=== PATIENT | male | born 1975 | race Caucasian/White ===

== ENCOUNTER 2017-12-16 04:02 | Emergency (ER) | payer SELFPAY ==
[2017-12-16 04:03] VITALS: BP 170/99; PULSE 85; RESP 18; TEMP 37; O2SAT 97; BMI 36.5
--- NOTE | 2017-12-16 05:41 | ED.DCSUM_ITS ---
- ER Visit Summary Date of Service: 12/16/17 Chief Complaint: lump around anus History of Present Illness: The patient is a 42 M who presents with chief complaint of I have a lump around my butt hole. Is concern for possible hemorrhoid although he states this feels different. He noticed a painful lump. He denies any rectal bleeding. No history of inflammatory bowel disease. No history of prior similar symptoms. He denies fevers nausea or vomiting. Physical Examination: Afebrile vitals are unremarkable Moist mucous membranes Heart regular rate and rhythm Lungs are clear Rectal exam is nontender he does have a left-sided perianal abscess Test Results: None indicated Emergency Department Course and Treatment: Patient anesthetized with 1% local lidocaine. An incision was made with a #11 blade with moderate amount of purulent drainage. Patient instructed on sits baths. He was referred to general surgery for outpatient follow-up. He is instructed on specific signs and symptoms to monitor for and conditions under which return to the emergency department. He was prescribed Augmentin and discharged home. Treatment Plan: [] Disposition: Discharge Impression: Perianal abscess This note was generated with [employer] dictation software. It may contain incorrect words, spelling, and punctuation that were not noted in review of the chart prior to signing ED Disposition - Plan for ED Patient: Chief Complaint: Other, Pain/Inj Referrals: Messi Valladares MD [Primary Care Provider] -
--- NOTE | 2017-12-16 05:41 | ED.DEP ---
ED Disposition - Plan for ED Patient: Chief Complaint: Other, Pain/Inj Instructions: ED Abscess IandD Prescriptions: Amox/Clavulanate Tablet [Augmentin Tablet] 875 mg PO Q12H #20 tab Referrals: Messi Valladares MD [Primary Care Provider] - Sandor Cedeño MD [STAFF PHYSICIAN] -
[2017-12-16 05:50] VITALS: RESP 18
== END 2017-12-16 05:54 | disposition home or self-care (01) ==
PROVIDERS: Emergency Provider Emergency Medicine; Family Provider Family Medicine; PCP Family Medicine
DX: K61.0 Anal abscess (principal); Z72.0 Tobacco use
CPT/HCPCS: 46050; 10060; 99282

== ENCOUNTER → 2018-10-29 08:15 | Outpatient (CLI) | payer OTHER, SELFPAY ==
[2018-10-29 10:55] LABS: Absolute Lymphocyte Count 3.01 X10^3/ul (0.83-4.51); Basophil# 0.03 X10^3/uL; Basophil% 0.4 % (0-1); Color, Urine Yellow (Yellow); Eosinophil# 0.24 X10^3/uL; Eosinophils% 3.4 % (0-5); Glucose, Dipstick Normal (Normal); Hematocrit 43.9 % (40-54); Hemoglobin 14.8 g/dl (13.0-16.5); Ketone-Dipstick Negative (Negative); Leukocyte Esterase-Dipstick Negative /ul (Negative); Lymphocyte # 3.01 X10^3/ul (4.0); Lymphocyte % 42.9 % (19-41); Mean Corp Hgb Conc 33.7 g/gl (32-36); Mean Corpuscular Hgb 29.9 pg (27.0-32.0); Mean Corpuscular Volume 88.7 fL (80-94); Mean Platelet Vol. 9.8 fl (6.2-12.0); Neutrophil # 3.02 X10^3/uL (2.7-7.7); Neutrophil % 43.2 % (47-70); Nitrite-Dipstick Negative (Negative); Occult Blood-Urine Negative /ul (Negative); Platelet Count 307 K/mm3 (150-450); Protein-Dipstick 30 mg/dl (Negative); RBC Distribution Width CV 12.6 % (11.6-14.6); RBC Distribution Width SD 39.7 fl (35.1-43.9); Red Blood Count 4.95 M/mm3 (4.6-6.2); Urine Bilirubin Dipstick Negative (Negative); Urine Clarity Clear (Clear); Urine Urobilinogen 4 mg/dl (Normal)
[2018-10-29 11:00] LABS: POSITIVE COUNT NO; POSITIVE DIFFERENTIAL NO; POSITIVE MORPHOLOGY NO
[2018-10-29 11:23] LABS: ALB/GLOB Ratio 0.8 RATIO (0.9-2.4); AST(SGOT) 35 U/L (15-37); Alanine Aminotransfer ALT/SGPT 75 U/L (16-61); Albumin, Serum 3.6 g/dL (3.2-5.0); Alkaline Phosphatase 91 U/L (45-117); Anion Gap 9 (5-15); BUN 10 mg/dL (7-18); BUN/Creat Ratio 16.9 RATIO (10-20); Calcium,Total 8.6 mg/dL (8.5-10.1); Chloride 100 mmol/L (98-107); Cholesterol 124 mg/dL (200); Creatinine, Serum 0.59 mg/dL (0.70-1.30); EST Glomerular Filtration Rate 156 mL/min (>60); Est Glom Filt Rate - Afr Amer 189 mL/min (>60); Globulin 4.8 g/dL (2.2-4.2); Glucose 178 mg/dL (74-106); High Density Lipoprotein 34 mg/dL; Protein, Total 8.4 g/dL (6.4-8.2); Sodium Level 135 mmol/L (136-145); Triglycerides 95 mg/dL; Very Low Density Lipoprotein 19 mg/dL (5-40)
[2018-10-29 14:11] LABS: Chlamydia Trachomatis by PCR Negative (Negative); Neisserai gonorrhoeae by PCR Negative (Negative); Probe Check PASS; Sample Adequacy Control PASS; Specimen Processing Control PASS
[2018-10-30 04:56] LABS: Rapid Plasmin Reagin (RPR) NONREACTIVE (NONREACTIVE)
[2018-10-30 17:38] LABS: Absolute CD4 Helper 640 /uL (359-1519); Basophils (Absolute) 0 x10E3/uL (0.0-0.2); Eosinophils 3 % (Not Estab.); Eosinophils (Absolute) 0.2 x10E3/uL (0.0-0.4); Hematocrit 42.3 % (37.5-51.0); Hemoglobin 13.8 g/dL (13.0-17.7); Immature Granulocytes 0 % (Not Estab.); Immature Granulocytes Absolute 0 x10E3/uL (0.0-0.1); Lymphs 43 % (Not Estab.); Lymphs (Absolute) 2.7 x10E3/uL (0.7-3.1); MCH 29.2 pg (26.6-33.0); MCHC 32.6 g/dL (31.5-35.7); MCV 89 fL (79-97); Monocytes 12 % (Not Estab.); Monocytes (Absolute) 0.8 x10E3/uL (0.1-0.9); Neutrophils 42 % (Not Estab.); Neutrophils (Absolute) 2.8 x10E3/uL (1.4-7.0); Percent % CD4 Pos. Lymph. 23.7 % (30.8-58.5); Platelets 345 x10E3/uL (150-379); RBC Count 4.73 x10E6/uL (4.14-5.80); WBC Count 6.5 x10E3/uL (3.4-10.8)
[2018-10-31 15:37] LABS: Hep B Surface Antibodies Non Reactive (.)
[2018-11-01 11:55] LABS: HIV-1 RNA by PCR, Quant. 60900 copies/mL (.); LOG10 HIV-1 RNA 4.785 (.)
== END ==
PROVIDERS: Family Provider Family Medicine; PCP Family Medicine; Referring Provider Internal Medicine Infectious Disease; Visit Provider Internal Medicine Infectious Disease
DX: B20 Human immunodeficiency virus [HIV] disease (principal); E78.5 Hyperlipidemia, unspecified
CPT/HCPCS: 36415; 80053; 80061; 81002; 85025; 86361; 86592; 86706; 87491; 87536; 87591

== ENCOUNTER → 2018-12-24 | Outpatient (CLI) | payer OTHER, SELFPAY ==
[2018-12-24 08:53] LABS: Hematocrit 41.3 % (40-54); Hemoglobin 14.3 g/dl (13.0-16.5); Mean Corp Hgb Conc 34.6 g/gl (32-36); Mean Corpuscular Hgb 30.4 pg (27.0-32.0); Mean Corpuscular Volume 87.9 fL (80-94); Mean Platelet Vol. 9.3 fl (6.2-12.0); Platelet Count 304 K/mm3 (150-450); RBC Distribution Width CV 12.6 % (11.6-14.6); RBC Distribution Width SD 40.4 fl (35.1-43.9); White Blood Count 6.8 K/mm3 (4.4-11.0)
[2018-12-24 08:58] LABS: Scan Indicated on CBC? Y/N NO
[2018-12-24 09:26] LABS: AST(SGOT) 31 U/L (15-37); Alanine Aminotransfer ALT/SGPT 56 U/L (16-61); Albumin, Serum 3.2 g/dL (3.2-5.0); Alkaline Phosphatase 86 U/L (45-117); Anion Gap 5 (5-15); BUN 10 mg/dL (7-18); BUN/Creat Ratio 16.8 RATIO (10-20); Calcium,Total 8.2 mg/dL (8.5-10.1); Chloride 103 mmol/L (98-107); EST Glomerular Filtration Rate 155 mL/min (>60); Est Glom Filt Rate - Afr Amer 188 mL/min (>60); Globulin 4.6 g/dL (2.2-4.2); Glucose 198 mg/dL (74-106); Potassium 4.1 mmol/L (3.5-5.1); Protein, Total 7.8 g/dL (6.4-8.2); Sodium Level 135 mmol/L (136-145)
[2018-12-25 16:08] LABS: Absolute CD4 Helper 711 /uL (359-1519); Basophils (Absolute) 0 x10E3/uL (0.0-0.2); Eosinophils 3 % (Not Estab.); Eosinophils (Absolute) 0.2 x10E3/uL (0.0-0.4); HEPATITIS B SURFACE AG Negative (Negative); Hematocrit 43.1 % (37.5-51.0); Hemoglobin 14.2 g/dL (13.0-17.7); Immature Granulocytes 0 % (Not Estab.); Immature Granulocytes Absolute 0 x10E3/uL (0.0-0.1); Lymphs 45 % (Not Estab.); Lymphs (Absolute) 2.8 x10E3/uL (0.7-3.1); MCH 29.6 pg (26.6-33.0); MCHC 32.9 g/dL (31.5-35.7); MCV 90 fL (79-97); Monocytes 12 % (Not Estab.); Monocytes (Absolute) 0.7 x10E3/uL (0.1-0.9); Neutrophils 40 % (Not Estab.); Neutrophils (Absolute) 2.5 x10E3/uL (1.4-7.0); Percent % CD4 Pos. Lymph. 25.4 % (30.8-58.5); Platelets 342 x10E3/uL (150-450); RBC Count 4.79 x10E6/uL (4.14-5.80); RDW 12.5 % (12.3-15.4); WBC Count 6.3 x10E3/uL (3.4-10.8)
[2018-12-27 13:04] LABS: Hepatitis B Core Ab Total Negative (Negative)
[2018-12-27 13:22] LABS: HIV-1 RNA by PCR, Quant. 60 copies/mL (.); LOG10 HIV-1 RNA 1.778 (.)
== END | disposition home or self-care (01) ==
PROVIDERS: Family Provider Family Medicine; PCP Family Medicine; Referring Provider Internal Medicine Infectious Disease; Visit Provider Internal Medicine Infectious Disease
DX: B20 Human immunodeficiency virus [HIV] disease (principal)
CPT/HCPCS: 36415; 80048; 80076; 85027; 86361; 86704; 87340; 87536

== ENCOUNTER → 2019-04-01 08:02 | Outpatient (CLI) | payer OTHER, SELFPAY ==
[2019-04-01 09:50] LABS: Hematocrit 42.8 % (40-54); Hemoglobin 14.1 g/dL (13.0-16.5); Mean Corp Hgb Conc 32.9 g/dL (32-36); Mean Corpuscular Hgb 29.8 pg (27.0-32.0); Mean Corpuscular Volume 90.5 fL (80-94); Mean Platelet Vol. 9.9 fl (6.2-12.0); Platelet Count 311 K/mm3 (150-450); RBC Distribution Width CV 12.2 % (11.6-14.6); RBC Distribution Width SD 40.3 fl (35.1-43.9); Red Blood Count 4.73 M/mm3 (4.6-6.2); White Blood Count 7.7 K/mm3 (4.4-11.0)
[2019-04-01 10:02] LABS: AST(SGOT) 26 U/L (15-37); Alanine Aminotransfer ALT/SGPT 53 U/L (16-61); Alkaline Phosphatase 104 U/L (45-117); Anion Gap 5 (5-15); BUN 11 mg/dL (7-18); BUN/Creat Ratio 17.4 RATIO (10-20); Bilirubin, Direct 0.22 mg/dL (0.00-0.30); Calcium,Total 8.4 mg/dL (8.5-10.1); Chloride 101 mmol/L (98-107); Creatinine, Serum 0.63 mg/dL (0.70-1.30); EST Glomerular Filtration Rate 145 mL/min (>60); Est Glom Filt Rate - Afr Amer 176 mL/min (>60); Globulin 4.8 g/dL (2.2-4.2); Glucose 255 mg/dL (74-106); Potassium 3.9 mmol/L (3.5-5.1); Protein, Total 7.8 g/dL (6.4-8.2); Sodium Level 133 mmol/L (136-145)
[2019-04-05 10:04] LABS: HIV-1 RNA by PCR, Quant. < 20 copies/mL (.)
[2019-04-06 20:07] LABS: Absolute CD4 Helper 856 /uL (359-1519); Basophils (Absolute) 0 x10E3/uL (0.0-0.2); Eosinophils 2 % (Not Estab.); Eosinophils (Absolute) 0.2 x10E3/uL (0.0-0.4); Hematocrit 42.5 % (37.5-51.0); Hemoglobin 14.6 g/dL (13.0-17.7); Immature Granulocytes 0 % (Not Estab.); Immature Granulocytes Absolute 0 x10E3/uL (0.0-0.1); Lymphs 38 % (Not Estab.); Lymphs (Absolute) 2.9 x10E3/uL (0.7-3.1); MCH 30.4 pg (26.6-33.0); MCHC 34.4 g/dL (31.5-35.7); MCV 89 fL (79-97); Monocytes 9 % (Not Estab.); Monocytes (Absolute) 0.7 x10E3/uL (0.1-0.9); Neutrophils 51 % (Not Estab.); Neutrophils (Absolute) 3.9 x10E3/uL (1.4-7.0); Percent % CD4 Pos. Lymph. 29.5 % (30.8-58.5); Platelets 334 x10E3/uL (150-450); QNTFERON TB Mitogen Value > 10.00 IU/mL (.); QNTFERON TB Nil Value 0.03 IU/mL (.); QNTFERON TB1+ Ag Value 0.04 IU/mL (.); QNTFERON TB2+ Ag Value 0.03 IU/mL (.); RDW 12.9 % (12.3-15.4); WBC Count 7.6 x10E3/uL (3.4-10.8)
[2019-04-07 12:20] LABS: QNTIFERON TB Positive Criteria Negative (Negative)
== END ==
PROVIDERS: Family Provider Family Medicine; PCP Family Medicine; Referring Provider Internal Medicine Infectious Disease; Visit Provider Internal Medicine Infectious Disease
DX: B20 Human immunodeficiency virus [HIV] disease (principal)
CPT/HCPCS: 36415; 80048; 80076; 85027; 86361; 86480; 87536

== ENCOUNTER → 2019-09-30 | Outpatient (CLI) | payer BC, SELFPAY ==
[2019-09-30 11:59] LABS: Hematocrit 41.7 % (40-54); Hemoglobin 13.6 g/dL (13.0-16.5); Mean Corp Hgb Conc 32.6 g/dL (32-36); Mean Corpuscular Hgb 29.6 pg (27.0-32.0); Mean Corpuscular Volume 90.7 fL (80-94); Mean Platelet Vol. 9.4 fl (6.2-12.0); Platelet Count 315 K/mm3 (150-450); RBC Distribution Width CV 12.4 % (11.6-14.6); RBC Distribution Width SD 40.9 fl (35.1-43.9)
[2019-09-30 12:23] LABS: AST(SGOT) 18 U/L (15-37); Alanine Aminotransfer ALT/SGPT 32 U/L (16-61); Albumin, Serum 3.2 g/dL (3.2-5.0); Alkaline Phosphatase 98 U/L (45-117); Anion Gap 3 (5-15); BUN 6 mg/dL (7-18); Bilirubin, Direct 0.17 mg/dL (0.00-0.30); Calcium,Total 8.4 mg/dL (8.5-10.1); Chloride 103 mmol/L (98-107); EST Glomerular Filtration Rate 153 mL/min (>60); Est Glom Filt Rate - Afr Amer 186 mL/min (>60); Globulin 4.7 g/dL (2.2-4.2); Glucose 149 mg/dL (74-106); Protein, Total 7.9 g/dL (6.4-8.2); Sodium Level 137 mmol/L (136-145)
[2019-10-01 14:08] LABS: Absolute CD4 Helper 1026 /uL (359-1519); Basophils (Absolute) 0 x10E3/uL (0.0-0.2); Eosinophils 2 % (Not Estab.); Eosinophils (Absolute) 0.1 x10E3/uL (0.0-0.4); Hematocrit 40.9 % (37.5-51.0); Hemoglobin 13.7 g/dL (13.0-17.7); Immature Granulocytes 0 % (Not Estab.); Lymphs 46 % (Not Estab.); Lymphs (Absolute) 3.1 x10E3/uL (0.7-3.1); MCH 30.4 pg (26.6-33.0); MCHC 33.5 g/dL (31.5-35.7); MCV 91 fL (79-97); Monocytes 7 % (Not Estab.); Monocytes (Absolute) 0.5 x10E3/uL (0.1-0.9); Neutrophils 45 % (Not Estab.); Neutrophils (Absolute) 3.1 x10E3/uL (1.4-7.0); Percent % CD4 Pos. Lymph. 33.1 % (30.8-58.5); Platelets 333 x10E3/uL (150-450); RBC Count 4.51 x10E6/uL (4.14-5.80); RDW 13.4 % (11.6-15.4); WBC Count 6.8 x10E3/uL (3.4-10.8)
[2019-10-01 16:51] LABS: Immature Granulocytes Absolute 0 x10E3/uL (0.0-0.1)
[2019-10-02 15:07] LABS: HIV-1 RNA by PCR, Quant. < 20 copies/mL (.)
== END | disposition home or self-care (01) ==
LOC: LAB 11:18
PROVIDERS: PCP Family Medicine; Referring Provider Internal Medicine Infectious Disease; Visit Provider Internal Medicine Infectious Disease
DX: B20 Human immunodeficiency virus [HIV] disease (principal)
CPT/HCPCS: 36415; 80048; 80076; 85027; 86361; 87536

== ENCOUNTER 2020-04-05 14:48 | Emergency (ER) | payer BC, SELFPAY ==
--- NOTE | 2020-04-05 13:37 | RAD_ITS ---
STUDY: X-RAY CHEST REASON FOR EXAM: Male, 45 years old. Chest pain. TECHNIQUE: Single AP portable view of the chest. COMPARISON: Chest, 12/27/2016. FINDINGS: The lungs are clear and expanded. There is no demonstrated pleural abnormality. Normal size heart. Normal mediastinum and karen. Normal visualized pulmonary arteries. Normal visualized aortic arch and descending thoracic aorta. Normal visualized thoracic spine. Normal visualized ribs, clavicles, and shoulders. There is no demonstrated abnormality of the visualized soft tissue structures of the upper abdomen. RAD/Chest 1 View (Portable) IMPRESSION: No acute cardiopulmonary disease or interval change Electronically Signed: Kip Wolf DO at 16:15 EDT Tel [phone], Service support ,
[2020-04-05 14:51] VITALS: BP 134/76; PULSE 88; RESP 17; TEMP 36.7; O2SAT 99; BMI 41.6
[2020-04-05 14:54] VITALS: BP 134/76; PULSE 89; RESP 15; O2SAT 97
--- NOTE | 2020-04-05 15:01 | EKG12_ITS ---
Test Reason : CP Blood Pressure : / mmHG Vent. Rate : 088 BPM Atrial Rate : 088 BPM P-R Int : 170 ms QRS Dur : 090 ms QT Int : 352 ms P-R-T Axes : 001 029 039 degrees QTc Int : 425 ms Normal sinus rhythm Normal ECG Confirmed by RANDY MOORE, JOSIAS ([id number]), photograph editor LIZZIE MILLS ([id number]) on 04/10/2020 1:25:10 PM Referred By: EFRAIN Confirmed By:JOSIAS PADILLA MD
[2020-04-05 15:30] LABS: Absolute Neutrophil Count 4.2 X10^3/uL (2.0-7.7); Basophil# 0.03 X10^3/uL; Basophil% 0.4 % (0-1); Eosinophil# 0.24 X10^3/uL; Eosinophils% 2.9 % (0-5); Hematocrit 44.2 % (40-54); Hemoglobin 14.9 g/dL (13.0-16.5); Lymphocyte % 37.2 % (19-41); Mean Corp Hgb Conc 33.7 g/dL (32-36); Mean Corpuscular Hgb 30.5 pg (27.0-32.0); Mean Corpuscular Volume 90.4 fL (80-94); Mean Platelet Vol. 9.4 fl (6.2-12.0); Monocyte# 0.72 X10^3/uL; Monocyte% 8.6 % (0-10); NRBC Flagged by Analyzer 0 % (0-5); Neutrophil # 4.21 X10^3/uL (2.7-7.7); Neutrophil % 50.5 % (47-70); Platelet Count 343 K/mm3 (150-450); RBC Distribution Width CV 12.1 % (11.6-14.6); Red Blood Count 4.89 M/mm3 (4.6-6.2); White Blood Count 8.3 K/mm3 (4.4-11.0)
--- NOTE | 2020-04-05 15:32 | ED.DCSUM_ITS ---
History of Present Illness Chief Complaint: Chest Pain Informant: Patient Onset: Today Context: Gradual Onset Current Severity: Mild Maximum Severity: Moderate Narrative: Patient presents secondary to anterior chest pain over the past 90 minutes. He states he was standing at the counter at work when he developed muscular pain in his chest. He states it is worse with a deep breath or with moving. He denies palpitations or shortness of breath. He denies history of cardiac disease. - Past Medical History (1) Hypertension Status: Chronic (2) High cholesterol Status: Chronic (3) Type II diabetes mellitus Status: Chronic Past Medical History - Allergies and Home Meds Allergies/Adverse Reactions: Allergies atorvastatin [From Lipitor] Adverse Reaction (Verified 04/05/20 14:51) Other Primary Care Physician: Messi Valladares MD [Primary Care Provider] - Surgical History: no surgical history Smoking Status: Former smoker - Family History Paternal Family History: Reports: - - Prostate cancer Maternal Family History: Reports: COPD, Diabetes, - - The patient is estranged from his father. His father is known to have a history of prostate cancer. His mother is 62 years of age with a history of diabetes mellitus and congestive heart failure. Review of Systems General: Denies: Chills, Fever Eyes: Denies: Visual changes - bilaterally ENT: Denies: Bilateral ear pain Cardiovascular: Reports: Chest pain. Denies: Palpitations, Heart racing Respiratory: Denies: Dyspnea, Cough Gastrointestinal: Denies: Abdominal pain, Nausea, Vomiting Musculoskeletal: Denies: Swelling, Extremity Pain Skin: Denies: Rash Neurological: Denies: Headache Hematologic: Denies: Easy bruising, Easy bleeding Allergy: Denies: Uticaria Physical Exam Vital Signs/Narrative: Vital Signs Temp Pulse Resp BP Pulse Ox 04/05/20 14:54 89 15 134/76 H 97 04/05/20 14:51 98.1 F 88 17 134/76 H 99 Inital Vital Signs reviewed: Yes General: Well nourished, Well developed Head: Normocephalic ENT: Moist mucous membranes Neck: Supple Cardiovascular: Regular rate, Regular rhythm Respiratory: No distress, CTA bilaterally, Chest tenderness - Mild tenderness over the upper sternum. No overlying skin changes. Abdomen: Soft, Nontender Extremities: Nontender Skin: Normal color Neurological: Alert, Oriented x3, Normal Strength, Normal Sensation Psychological: Normal affect Diagnostic/Tx/Re-eval Chest X-Ray - ED: 1 View, Read by ED Physician, Normal, Heart, Lungs, Mediastinum Impressions Chest X-Ray 04/05/20 13:37 IMPRESSION: No acute cardiopulmonary disease or interval change Electronically Signed: Kip WolfDO at 16:15 EDT Tel [phone], Service support , 04/05/20 13:37 Chest 1 View (Portable) [RAD] Stat Laboratory Results 04/05/20 04/05/20 04/05/20 15:06 15:06 15:06 WBC 8.3 RBC 4.89 Hgb 14.9 Hct 44.2 MCV 90.4 MCH 30.5 MCHC 33.7 RDW Std Deviation 40.0 RDW Coeff of Shruti 12.1 Plt Count 343 MPV 9.4 Immature Gran % (Auto) 0.400 Neut % (Auto) 50.5 Lymph % (Auto) 37.2 [place] % (Auto) 8.6 Eos % (Auto) 2.9 Baso % (Auto) 0.4 Absolute Neuts (auto) 4.2 Absolute Lymphs (auto) 3.10 Nucleated RBC % 0 D-Dimer Quant (PE/DVT) <= 0.27 Sodium 137 Potassium 3.9 Chloride 105 Carbon Dioxide 28.0 Anion Gap 4 L BUN 9 Creatinine 0.66 L Estim Creat Clear Calc 124.86 Est GFR (MDRD) Af Amer 166 Est GFR (MDRD) Non-Af 137 BUN/Creatinine Ratio 13.6 Glucose 125 H Calcium 9.1 Troponin I < 0.015 - Medical Decision Making He was given aspirin on arrival. On repeat evaluation he is resting comfortably. He continues to report that it feels like his chest wall that is sore. His work-up at this time is negative. He will be given a 4-day steroid burst to help control pain. He was advised this would make his blood sugars go up slightly for the next couple of days. He is to follow-up with his PCP if not improving or return to the emergency room. ED Disposition - Plan for ED Patient: Disposition: Home or Assisted Living Diagnosis: Chest wall pain Instructions: ED Strain Chest Wall Prescriptions: Prednisone [Deltasone] 40 mg PO DAILY #6 tab Transmission Status: Pending to [id number] Referrals: Messi Valladares MD [Primary Care Provider] - 1 Week if not improving
[2020-04-05 15:33] VITALS: O2SAT 97
[2020-04-05] MEDS: Aspirin 81 MG TAB.CHEW 324 MG PO (15:33)
[2020-04-05 15:48] LABS: Anion Gap 4 (5-15); BUN 9 mg/dL (7-18); BUN/Creat Ratio 13.6 RATIO (10-20); Calcium,Total 9.1 mg/dL (8.5-10.1); Chloride 105 mmol/L (98-107); Creatinine, Serum 0.66 mg/dL (0.70-1.30); EST Glomerular Filtration Rate 137 mL/min (>60); Est Glom Filt Rate - Afr Amer 166 mL/min (>60); Estimated Creatinine Clearance 124.86 ml/min; Glucose 125 mg/dL (74-106); Potassium 3.9 mmol/L (3.5-5.1); Sodium Level 137 mmol/L (136-145)
[2020-04-05 16:13] LABS: D-Dimer Quantitative (DVT/PE) <= 0.27 FEU/ug/m (0.27-0.49)
[2020-04-05] MEDS: predniSONE 20 MG Tablet 60 MG PO (16:28)
[2020-04-05 16:32] VITALS: BP 125/58; PULSE 88; RESP 18; O2SAT 93
== END 2020-04-05 16:33 | disposition home or self-care (01) ==
PROVIDERS: Emergency Provider Emergency Medicine; PCP Family Medicine
DX: R07.89 Other chest pain (principal); I10 Essential (primary) hypertension; E11.9 Type 2 diabetes mellitus without complications; Z79.4 Long term (current) use of insulin; Z87.891 Personal history of nicotine dependence
CPT/HCPCS: 71045; 80048; 84484; 85025; 85379; 93005; 99285; A4216

== ENCOUNTER → 2020-04-07 | Outpatient (CLI) | payer BC, SELFPAY ==
[2020-04-05 14:51] VITALS: BMI 41.6
[2020-04-07 16:22] LABS: Hematocrit 45.1 % (40-54); Hemoglobin 14.7 g/dL (13.0-16.5); Mean Corp Hgb Conc 32.6 g/dL (32-36); Mean Corpuscular Hgb 29.8 pg (27.0-32.0); Mean Corpuscular Volume 91.3 fL (80-94); Mean Platelet Vol. 9.5 fl (6.2-12.0); Platelet Count 372 K/mm3 (150-450); RBC Distribution Width CV 12.4 % (11.6-14.6); RBC Distribution Width SD 41.1 fl (35.1-43.9); Red Blood Count 4.94 M/mm3 (4.6-6.2); White Blood Count 9.9 K/mm3 (4.4-11.0)
[2020-04-07 16:39] LABS: Anion Gap 8 (5-15); BUN 14 mg/dL (7-18); BUN/Creat Ratio 19.8 RATIO (10-20); Calcium,Total 8.4 mg/dL (8.5-10.1); Chloride 105 mmol/L (98-107); Creatinine, Serum 0.71 mg/dL (0.70-1.30); EST Glomerular Filtration Rate 127 mL/min (>60); Est Glom Filt Rate - Afr Amer 154 mL/min (>60); Glucose 201 mg/dL (74-106); Sodium Level 139 mmol/L (136-145)
[2020-04-10 16:08] LABS: Absolute CD4 Helper 1613 /uL (359-1519); Basophils (Absolute) 0.1 x10E3/uL (0.0-0.2); Eosinophils 2 % (Not Estab.); Eosinophils (Absolute) 0.2 x10E3/uL (0.0-0.4); Hematocrit 46.1 % (37.5-51.0); Hemoglobin 15.3 g/dL (13.0-17.7); Immature Granulocytes 0 % (Not Estab.); Lymphs 37 % (Not Estab.); Lymphs (Absolute) 3.6 x10E3/uL (0.7-3.1); MCH 30.2 pg (26.6-33.0); MCHC 33.2 g/dL (31.5-35.7); MCV 91 fL (79-97); Monocytes 7 % (Not Estab.); Monocytes (Absolute) 0.7 x10E3/uL (0.1-0.9); Neutrophils 53 % (Not Estab.); Neutrophils (Absolute) 5.1 x10E3/uL (1.4-7.0); Percent % CD4 Pos. Lymph. 44.8 % (30.8-58.5); Platelets 299 x10E3/uL (150-450); RBC Count 5.06 x10E6/uL (4.14-5.80); RDW 12.5 % (11.6-15.4); WBC Count 9.7 x10E3/uL (3.4-10.8)
[2020-04-10 20:52] LABS: Immature Granulocytes Absolute 0 x10E3/uL (0.0-0.1)
== END | disposition home or self-care (01) ==
LOC: LAB 14:42
PROVIDERS: PCP Family Medicine; Referring Provider Internal Medicine Infectious Disease; Visit Provider Internal Medicine Infectious Disease
DX: B20 Human immunodeficiency virus [HIV] disease (principal)
CPT/HCPCS: 36415; 80048; 85027; 86361; 87536

== ENCOUNTER → 2020-09-21 10:44 | Outpatient (CLI) | payer BC, SELFPAY ==
[2020-09-21 11:23] LABS: Hematocrit 46.8 % (40-54); Hemoglobin 14.8 g/dL (13.0-16.5); Mean Corp Hgb Conc 31.6 g/dL (32-36); Mean Corpuscular Hgb 29.8 pg (27.0-32.0); Mean Corpuscular Volume 94.2 fL (80-94); Mean Platelet Vol. 9.5 fl (6.2-12.0); Platelet Count 328 K/mm3 (150-450); RBC Distribution Width CV 12.6 % (11.6-14.6); RBC Distribution Width SD 43.6 fl (35.1-43.9); Red Blood Count 4.97 M/mm3 (4.6-6.2); White Blood Count 8.2 K/mm3 (4.4-11.0)
[2020-09-21 11:51] LABS: Anion Gap 4 (5-15); BUN 12 mg/dL (7-18); BUN/Creat Ratio 16.1 RATIO (10-20); Calcium,Total 8.8 mg/dL (8.5-10.1); Chloride 105 mmol/L (98-107); Cholesterol 122 mg/dL (200); Creatinine, Serum 0.74 mg/dL (0.70-1.30); EST Glomerular Filtration Rate 119 mL/min (>60); Est Glom Filt Rate - Afr Amer 144 mL/min (>60); Glucose 149 mg/dL (74-106); High Density Lipoprotein 33 mg/dL; Potassium 3.8 mmol/L (3.5-5.1); Sodium Level 139 mmol/L (136-145); Triglycerides 181 mg/dL; Very Low Density Lipoprotein 36 mg/dL (5-40)
[2020-09-21 13:27] LABS: Hepatitis C Antibody Non-Reactive (Nonreactive); Syphilis Antibodies Non-reactive
[2020-09-21 15:07] LABS: Chlamydia Trachomatis by PCR Negative (Negative); Neisserai gonorrhoeae by PCR Negative (Negative); Probe Check PASS; Sample Adequacy Control PASS; Specimen Processing Control PASS
[2020-09-22 20:07] LABS: Absolute CD4 Helper 1047 /uL (359-1519); Basophils (Absolute) 0.1 x10E3/uL (0.0-0.2); Eosinophils 3 % (Not Estab.); Eosinophils (Absolute) 0.2 x10E3/uL (0.0-0.4); Hematocrit 44.3 % (37.5-51.0); Immature Granulocytes 0 % (Not Estab.); Lymphs 35 % (Not Estab.); Lymphs (Absolute) 2.9 x10E3/uL (0.7-3.1); MCH 30.7 pg (26.6-33.0); MCHC 33.9 g/dL (31.5-35.7); MCV 91 fL (79-97); Monocytes 10 % (Not Estab.); Monocytes (Absolute) 0.8 x10E3/uL (0.1-0.9); Neutrophils 51 % (Not Estab.); Neutrophils (Absolute) 4.4 x10E3/uL (1.4-7.0); Percent % CD4 Pos. Lymph. 36.1 % (30.8-58.5); Platelets 359 x10E3/uL (150-450); RBC Count 4.89 x10E6/uL (4.14-5.80); RDW 12.2 % (11.6-15.4); WBC Count 8.4 x10E3/uL (3.4-10.8)
[2020-09-22 20:53] LABS: Immature Granulocytes Absolute 0 x10E3/uL (0.0-0.1)
[2020-09-25 12:12] LABS: HIV-1 RNA by PCR, Quant. < 20 copies/mL (.)
== END ==
LOC: LAB 10:46
PROVIDERS: PCP Family Medicine; Visit Provider Internal Medicine Infectious Disease
DX: B20 Human immunodeficiency virus [HIV] disease (principal)
CPT/HCPCS: 36415; 80048; 80061; 85027; 86361; 86803; 87491; 87536; 87591

== ENCOUNTER → 2021-04-06 10:20 | Outpatient (CLI) | payer BC, SELFPAY ==
[2021-04-06 11:43] LABS: Hematocrit 46.4 % (40-54); Hemoglobin 15.1 g/dL (13.0-16.5); Mean Corp Hgb Conc 32.5 g/dL (32-36); Mean Corpuscular Hgb 30.7 pg (27.0-32.0); Mean Corpuscular Volume 94.3 fL (80-94); Mean Platelet Vol. 10.1 fl (6.2-12.0); Platelet Count 337 K/mm3 (150-450); RBC Distribution Width CV 12.7 % (11.6-14.6); Red Blood Count 4.92 M/mm3 (4.6-6.2); White Blood Count 7.6 K/mm3 (4.4-11.0)
[2021-04-06 12:08] LABS: Anion Gap 5 (5-15); BUN 11 mg/dL (7-18); BUN/Creat Ratio 14.9 RATIO (10-20); Calcium,Total 8.6 mg/dL (8.5-10.1); Chloride 105 mmol/L (98-107); Creatinine, Serum 0.74 mg/dL (0.70-1.30); EST Glomerular Filtration Rate 121 mL/min (>60); Est Glom Filt Rate - Afr Amer 146 mL/min (>60); Glucose 130 mg/dL (74-106); Sodium Level 138 mmol/L (136-145)
[2021-04-07 20:08] LABS: Absolute CD4 Helper 1083 /uL (359-1519); Basophils (Absolute) 0.1 x10E3/uL (0.0-0.2); Eosinophils 3 % (Not Estab.); Eosinophils (Absolute) 0.2 x10E3/uL (0.0-0.4); Hematocrit 42.1 % (37.5-51.0); Hemoglobin 14.2 g/dL (13.0-17.7); Immature Granulocytes 0 % (Not Estab.); Lymphs 34 % (Not Estab.); Lymphs (Absolute) 2.7 x10E3/uL (0.7-3.1); MCH 31.3 pg (26.6-33.0); MCHC 33.7 g/dL (31.5-35.7); MCV 93 fL (79-97); Monocytes 10 % (Not Estab.); Monocytes (Absolute) 0.8 x10E3/uL (0.1-0.9); Neutrophils 52 % (Not Estab.); Percent % CD4 Pos. Lymph. 40.1 % (30.8-58.5); Platelets 377 x10E3/uL (150-450); RBC Count 4.53 x10E6/uL (4.14-5.80); RDW 12.8 % (11.6-15.4); WBC Count 7.7 x10E3/uL (3.4-10.8)
[2021-04-08 07:51] LABS: HIV-1 RNA by PCR, Quant. < 20 copies/mL (.)
[2021-04-08 08:04] LABS: Immature Granulocytes Absolute 0 x10E3/uL (0.0-0.1)
== END ==
LOC: LAB 10:22
PROVIDERS: PCP Family Medicine; Referring Provider Internal Medicine Infectious Disease; Visit Provider Internal Medicine Infectious Disease
DX: B20 Human immunodeficiency virus [HIV] disease (principal)
CPT/HCPCS: 36415; 80048; 85027; 86361; 87536

== ENCOUNTER → 2021-11-08 | Outpatient (CLI) | payer BC, SELFPAY ==
[2021-11-08 13:09] LABS: Hemoglobin 15.5 g/dL (13.0-16.5); Mean Corp Hgb Conc 33.7 g/dL (32-36); Mean Corpuscular Hgb 30.8 pg (27.0-32.0); Mean Corpuscular Volume 91.5 fL (80-94); Mean Platelet Vol. 9.3 fl (6.2-12.0); Platelet Count 346 K/mm3 (150-450); RBC Distribution Width CV 12.9 % (11.6-14.6); RBC Distribution Width SD 42.6 fl (35.1-43.9); Red Blood Count 5.03 M/mm3 (4.6-6.2); White Blood Count 8.4 K/mm3 (4.4-11.0)
[2021-11-08 13:34] LABS: ALB/GLOB Ratio 0.8 RATIO (0.9-2.4); AST(SGOT) 18 U/L (15-37); Alanine Aminotransfer ALT/SGPT 29 U/L (16-61); Albumin, Serum 3.4 g/dL (3.2-5.0); Alkaline Phosphatase 93 U/L (45-117); Anion Gap 7 (5-15); BUN 11 mg/dL (7-18); BUN/Creat Ratio 12.2 RATIO (10-20); Calcium,Total 8.5 mg/dL (8.5-10.1); Chloride 101 mmol/L (98-107); EST Glomerular Filtration Rate 96 mL/min (>60); Est Glom Filt Rate - Afr Amer 116 mL/min (>60); Globulin 4.5 g/dL (2.2-4.2); Glucose 186 mg/dL (74-106); Potassium 3.8 mmol/L (3.5-5.1); Protein, Total 7.9 g/dL (6.4-8.2); Sodium Level 136 mmol/L (136-145)
[2021-11-08 14:11] LABS: Hepatitis C Antibody Non-Reactive (Nonreactive); Syphilis Antibodies Non-reactive
[2021-11-12 12:07] LABS: Absolute CD4 Helper 1070 /uL (359-1519); Basophils (Absolute) 0.1 x10E3/uL (0.0-0.2); Eosinophils 4 % (Not Estab.); Eosinophils (Absolute) 0.3 x10E3/uL (0.0-0.4); Hematocrit 49.4 % (37.5-51.0); Hemoglobin 15.9 g/dL (13.0-17.7); Immature Granulocytes 0 % (Not Estab.); Lymphs 31 % (Not Estab.); Lymphs (Absolute) 2.5 x10E3/uL (0.7-3.1); MCH 30.6 pg (26.6-33.0); MCHC 32.2 g/dL (31.5-35.7); MCV 95 fL (79-97); Monocytes 7 % (Not Estab.); Monocytes (Absolute) 0.6 x10E3/uL (0.1-0.9); Neutrophils 57 % (Not Estab.); Neutrophils (Absolute) 4.6 x10E3/uL (1.4-7.0); Percent % CD4 Pos. Lymph. 42.8 % (30.8-58.5); Platelets 370 x10E3/uL (150-450); RBC Count 5.19 x10E6/uL (4.14-5.80); RDW 12.6 % (11.6-15.4)
[2021-11-12 14:19] LABS: Immature Granulocytes Absolute 0 x10E3/uL (0.0-0.1)
[2021-11-12 14:28] LABS: HIV-1 RNA by PCR, Quant. < 20 copies/mL (.)
== END | disposition home or self-care (01) ==
LOC: LAB 12:41
PROVIDERS: PCP Family Medicine; Referring Provider Internal Medicine Infectious Disease; Visit Provider Internal Medicine Infectious Disease
DX: B20 Human immunodeficiency virus [HIV] disease (principal)
CPT/HCPCS: 36415; 80053; 85027; 86361; 86780; 86803; 87536

== ENCOUNTER → 2022-03-15 | Outpatient (CLI) | payer BC, SELFPAY ==
[2022-03-15 16:06] LABS: Hematocrit 44.8 % (40-54); Hemoglobin 14.9 g/dL (13.0-16.5); Mean Corp Hgb Conc 33.3 g/dL (32-36); Mean Corpuscular Hgb 31.1 pg (27.0-32.0); Mean Corpuscular Volume 93.5 fL (80-94); Mean Platelet Vol. 9.8 fl (6.2-12.0); Platelet Count 315 K/mm3 (150-450); RBC Distribution Width CV 12.8 % (11.6-14.6); Red Blood Count 4.79 M/mm3 (4.6-6.2); White Blood Count 7.5 K/mm3 (4.4-11.0)
[2022-03-15 16:07] LABS: Color, Urine Straw (Yellow); Glucose, Dipstick 1000 mg/dl (Normal); Ketone-Dipstick Negative (Negative); Leukocyte Esterase-Dipstick Negative /ul (Negative); Nitrite-Dipstick Negative (Negative); Occult Blood-Urine 10 /ul (Negative); Protein-Dipstick 30 mg/dl (Negative); Urine Bilirubin Dipstick Negative (Negative); Urine Clarity Clear (Clear); Urine Urobilinogen 1 mg/dl (Normal)
[2022-03-15 16:40] LABS: Anion Gap 9 (5-15); BUN 10 mg/dL (7-18); BUN/Creat Ratio 12.8 RATIO (10-20); Calcium,Total 8.6 mg/dL (8.5-10.1); Chloride 104 mmol/L (98-107); Creatinine, Serum 0.78 mg/dL (0.70-1.30); EST Glomerular Filtration Rate 112 mL/min (>60); Est Glom Filt Rate - Afr Amer 135 mL/min (>60); Glucose 183 mg/dL (74-106); Potassium 3.8 mmol/L (3.5-5.1); Sodium Level 139 mmol/L (136-145)
[2022-03-18 10:08] LABS: Hepatitis C Antibody Non-Reactive (Nonreactive)
[2022-03-18 14:08] LABS: Absolute CD4 Helper 1108 /uL (359-1519); Basophils (Absolute) 0.1 x10E3/uL (0.0-0.2); Eosinophils 4 % (Not Estab.); Eosinophils (Absolute) 0.3 x10E3/uL (0.0-0.4); Hemoglobin 15.3 g/dL (13.0-17.7); Immature Granulocytes 0 % (Not Estab.); Lymphs 36 % (Not Estab.); Lymphs (Absolute) 2.5 x10E3/uL (0.7-3.1); MCH 30.8 pg (26.6-33.0); MCHC 33.3 g/dL (31.5-35.7); MCV 93 fL (79-97); Monocytes 9 % (Not Estab.); Monocytes (Absolute) 0.7 x10E3/uL (0.1-0.9); Neutrophils 50 % (Not Estab.); Neutrophils (Absolute) 3.5 x10E3/uL (1.4-7.0); Percent % CD4 Pos. Lymph. 44.3 % (30.8-58.5); Platelets 320 x10E3/uL (150-450); RBC Count 4.96 x10E6/uL (4.14-5.80); RDW 12.7 % (11.6-15.4)
[2022-03-19 16:59] LABS: HIV-1 RNA by PCR, Quant. 30 copies/mL (.); LOG10 HIV-1 RNA 1.477 (.)
[2022-03-19 17:56] LABS: Immature Granulocytes Absolute 0 x10E3/uL (0.0-0.1)
== END | disposition home or self-care (01) ==
LOC: LAB 14:14
PROVIDERS: PCP Family Medicine; Referring Provider Internal Medicine Infectious Disease; Visit Provider Internal Medicine Infectious Disease
DX: B20 Human immunodeficiency virus [HIV] disease (principal)
CPT/HCPCS: 36415; 80048; 81002; 85027; 86361; 86803; 87536

== ENCOUNTER → 2022-09-20 | Outpatient (CLI) | payer BC, SELFPAY ==
[2022-09-20 16:30] LABS: Hematocrit 45.6 % (40-54); Hemoglobin 15.1 g/dL (13.0-16.5); Mean Corp Hgb Conc 33.1 g/dL (32-36); Mean Corpuscular Volume 93.6 fL (80-94); Mean Platelet Vol. 9.9 fl (6.2-12.0); Platelet Count 329 K/mm3 (150-450); RBC Distribution Width SD 44.3 fl (35.1-43.9); Red Blood Count 4.87 M/mm3 (4.6-6.2); White Blood Count 6.8 K/mm3 (4.4-11.0)
[2022-09-20 16:34] LABS: Color, Urine Yellow (Yellow); Glucose, Dipstick 1000 mg/dl (Normal); Ketone-Dipstick Negative (Negative); Leukocyte Esterase-Dipstick Negative /ul (Negative); Nitrite-Dipstick Negative (Negative); Occult Blood-Urine 25 /ul (Negative); Protein-Dipstick 30 mg/dl (Negative); Specific Gravity, Urine 1.015 (1.002-1.030); Urine Bilirubin Dipstick Negative (Negative); Urine Clarity Clear (Clear); Urine Urobilinogen 1 mg/dl (Normal)
[2022-09-20 17:13] LABS: Anion Gap 9 (5-15); BUN 13 mg/dL (7-18); BUN/Creat Ratio 15.2 RATIO (10-20); Chloride 104 mmol/L (98-107); Creatinine, Serum 0.86 mg/dL (0.70-1.30); EST Glomerular Filtration Rate 100 mL/min (>60); Est Glom Filt Rate - Afr Amer 122 mL/min (>60); Glucose 141 mg/dL (74-106); Potassium 3.8 mmol/L (3.5-5.1); Sodium Level 139 mmol/L (136-145)
[2022-09-20 18:37] LABS: Hepatitis C Antibody Non-Reactive (Nonreactive)
[2022-09-23 15:08] LABS: Absolute CD4 Helper 1307 /uL (359-1519); Basophils (Absolute) 0.1 x10E3/uL (0.0-0.2); Eosinophils 5 % (Not Estab.); Eosinophils (Absolute) 0.3 x10E3/uL (0.0-0.4); Hematocrit 46.2 % (37.5-51.0); Hemoglobin 15.3 g/dL (13.0-17.7); Immature Granulocytes 0 % (Not Estab.); Lymphs 42 % (Not Estab.); Lymphs (Absolute) 2.7 x10E3/uL (0.7-3.1); MCH 30.7 pg (26.6-33.0); MCHC 33.1 g/dL (31.5-35.7); MCV 93 fL (79-97); Monocytes 10 % (Not Estab.); Monocytes (Absolute) 0.7 x10E3/uL (0.1-0.9); Neutrophils 42 % (Not Estab.); Neutrophils (Absolute) 2.7 x10E3/uL (1.4-7.0); Percent % CD4 Pos. Lymph. 48.4 % (30.8-58.5); Platelets 329 x10E3/uL (150-450); RBC Count 4.98 x10E6/uL (4.14-5.80); RDW 12.9 % (11.6-15.4); WBC Count 6.5 x10E3/uL (3.4-10.8)
[2022-09-23 19:06] LABS: Immature Granulocytes Absolute 0 x10E3/uL (0.0-0.1)
[2022-09-24 22:22] LABS: HIV-1 RNA by PCR, Quant. < 20 copies/mL (.)
== END | disposition home or self-care (01) ==
LOC: LAB 14:48
PROVIDERS: PCP Family Medicine; Referring Provider Internal Medicine Infectious Disease; Visit Provider Internal Medicine Infectious Disease
DX: B20 Human immunodeficiency virus [HIV] disease (principal)
CPT/HCPCS: 36415; 80048; 81002; 85027; 86361; 86803; 87536

== ENCOUNTER → 2023-03-21 | Outpatient (CLI) | payer BC, SELFPAY ==
[2023-03-21 14:58] LABS: Hematocrit 46.2 % (40-54); Hemoglobin 15.2 g/dL (13.0-16.5); Mean Corp Hgb Conc 32.9 g/dL (32-36); Mean Corpuscular Hgb 30.8 pg (27.0-32.0); Mean Corpuscular Volume 93.7 fL (80-94); Mean Platelet Vol. 9.3 fl (6.2-12.0); Platelet Count 306 K/mm3 (150-450); RBC Distribution Width CV 12.7 % (11.6-14.6); RBC Distribution Width SD 44.2 fl (35.1-43.9); Red Blood Count 4.93 M/mm3 (4.6-6.2); White Blood Count 7.1 K/mm3 (4.4-11.0)
[2023-03-21 15:21] LABS: Anion Gap 7 (5-15); BUN 11 mg/dL (7-18); BUN/Creat Ratio 12.4 RATIO (10-20); Chloride 105 mmol/L (98-107); Creatinine, Serum 0.89 mg/dL (0.70-1.30); EST Glomerular Filtration Rate 96 mL/min (>60); Est Glom Filt Rate - Afr Amer 116 mL/min (>60); Glucose 200 mg/dL (74-106); Potassium 3.7 mmol/L (3.5-5.1); Sodium Level 139 mmol/L (136-145)
[2023-03-24 18:07] LABS: Absolute CD4 Helper 1173 /uL (359-1519); Basophils (Absolute) 0 x10E3/uL (0.0-0.2); Eosinophils 3 % (Not Estab.); Eosinophils (Absolute) 0.2 x10E3/uL (0.0-0.4); Hematocrit 46.1 % (37.5-51.0); Hemoglobin 15.3 g/dL (13.0-17.7); Immature Granulocytes 0 % (Not Estab.); Immature Granulocytes Absolute 0 x10E3/uL (0.0-0.1); Lymphs 36 % (Not Estab.); Lymphs (Absolute) 2.5 x10E3/uL (0.7-3.1); MCH 31.1 pg (26.6-33.0); MCHC 33.2 g/dL (31.5-35.7); MCV 94 fL (79-97); Monocytes 6 % (Not Estab.); Monocytes (Absolute) 0.5 x10E3/uL (0.1-0.9); Neutrophils 54 % (Not Estab.); Neutrophils (Absolute) 3.9 x10E3/uL (1.4-7.0); Percent % CD4 Pos. Lymph. 46.9 % (30.8-58.5); Platelets 333 x10E3/uL (150-450); RBC Count 4.92 x10E6/uL (4.14-5.80); RDW 12.5 % (11.6-15.4); WBC Count 7.1 x10E3/uL (3.4-10.8)
[2023-03-25 05:07] LABS: HIV-1 RNA by PCR, Quant. 30 copies/mL (.); LOG10 HIV-1 RNA 1.477 (.)
[2023-03-25 14:54] LABS: Syphilis Antibodies Non-reactive
== END | disposition home or self-care (01) ==
LOC: LAB 14:09
PROVIDERS: PCP Family Medicine; Referring Provider Internal Medicine Infectious Disease; Visit Provider Internal Medicine Infectious Disease
DX: B20 Human immunodeficiency virus [HIV] disease (principal)
CPT/HCPCS: 36415; 80048; 85027; 86361; 86780; 87536

== ENCOUNTER → 2023-10-01 | Outpatient (CLI) | payer BC, SELFPAY ==
[2023-10-01 17:06] LABS: Hematocrit 45.5 % (40-54); Mean Corpuscular Hgb 30.8 pg (27.0-32.0); Mean Corpuscular Volume 93.4 fL (80-94); Platelet Count 338 K/mm3 (150-450); RBC Distribution Width CV 12.4 % (11.6-14.6); RBC Distribution Width SD 42.6 fl (35.1-43.9); Red Blood Count 4.87 M/mm3 (4.6-6.2); White Blood Count 7.7 K/mm3 (4.4-11.0)
[2023-10-01 17:35] LABS: Anion Gap 6 (5-15); BUN 14 mg/dL (7-18); BUN/Creat Ratio 15.1 RATIO (10-20); Chloride 104 mmol/L (98-107); Creatinine, Serum 0.93 mg/dL (0.70-1.30); EST Glomerular Filtration Rate 91 mL/min (>60); Est Glom Filt Rate - Afr Amer 110 mL/min (>60); Glucose 130 mg/dL (74-106); Potassium 4.3 mmol/L (3.5-5.1); Sodium Level 137 mmol/L (136-145)
--- OUTSIDE RECORDS SUMMARY | 2023-10-01 22:45 | XMS RPT_ITS | CCD ---
Author Name Unknown Address [address] [place] [address] Organization [facility] Care Team Providers Care Lactation Nurse Name Role Phone Christine Cotton Unavailable Unavailable PROVIDER, UNKNOWN Unavailable Unavailable PROVIDER, UNKNOWN Unavailable Unavailable Saeed Perez MD Primary Care Provider Saeed Perez MD Primary Care Provider Saeed Perez MD Primary Care Provider Saeed Perez MD Primary Care Provider SAEED PEREZ Primary Care Unavailab REE Duron Attending Unavailable SAEED PEREZ Referring Unavailab SAEED Craig Referring Unavailab SAEED Craig Primary Care Unavailab SAEED Craig Attending Unavailab SAEED Craig Primary Care Unavailab LIDA Smith Attending Unavailable SAEED PEREZ Referring Unavailab SAEED Craig Primary Care Unavailab REE Duron Attending Unavailable SAEED PEREZ Primary Care Unavailab SAEED Craig Primary Care Unavailab SAEED Craig Primary Care Unavailab SAEED Craig Referring Unavailab SAEED Craig Primary Care Unavailab SAEED Craig Referring Unavailab SAEED Craig Primary Care Unavailab SAEED Craig Referring Unavailab SAEED Craig Primary Care Unavailab ARMIN Klein Attending Unavailable SAEED PEREZ Primary Care Unavailab SAEED Craig Primary Care Unavailab le SHANNONTOVITZ, VIOLA Attending SAEED Aguirre Primary Care Unavailab REE Duron Attending Unavailable SAEED PEREZ Primary Care Unavailab SAEED Craig Referring Unavailab SAEED Craig Primary Care Unavailab SAEED Craig Referring Unavailab REE Duron Admitting REE Archer Attending SAEED Aguirre Primary Care Unavailab SAEED Craig Primary Care Unavailab SAEED Craig Attending Unavailab le Allergies Allergy Classification Reported Allergen(s) Allergy Type Date of Onset Reaction(s) Facility (20 sources) atorvastatin; Translations: [ATORVASTATIN CALCIUM] Drug Allergy 02-05-2012 Other: See Comments [facility] Work Phone: Medications Current Medications Medication Drug Class(es) Dates Sig (Normalized) Sig (Original) cephalexin 250 mg oral capsule (1 source) Cephalosporin Antibacterial Start: 01-13-2023 End: 01-18-2023 take 1 capsule by mouth four times daily cephALEXin (KEFLEX) 250 mg capsule Indications: Postoperative stitch abscess Take 1 capsule by mouth four times daily for 5 days. 20 capsule 0 01/13/2023 01/18/2023 Active Completed/Discontinued Medications Medication Drug Class(es) Dates Sig (Normalized) Sig (Original) aspirin 81 mg delayed release oral tablet (20 sources) Platelet Aggregation Inhibitor, Nonsteroidal Anti-inflammatory Drug take 1 tablet by mouth once daily aspirin, enteric coated (ASPIRIN, ENTERIC COATED) 81 mg EC tablet Take 81 mg by mouth once daily. 0 Active Problems Active Problems Problem Classification Problem Date Documented Date Episodic/Chronic Blindness and vision defects (1 source) Presbyopia; Translations: [Presbyopia] 02-14-2023 Episodic Complications of surgical procedures or medical care (1 source) Stitch abscess; Translations: [Infection following a procedure, superficial incisional surgical site, initial encounter] Episodic Diabetes mellitus with complications (1 source) Type 2 diabetes mellitus; Translations: [Type 2 diabetes mellitus with mild nonproliferative diabetic retinopathy without macular edema, bilateral] 02-14-2023 Chronic Diabetes mellitus without complication (20 sources) Type 2 diabetes mellitus without complications; Translations: [Diabetes mellitus type 2 without retinopathy] Onset: 05-09-2017 08-28-2018 Chronic Disorders of lipid metabolism (20 sources) Hypertriglyceridemia; Translations: [Pure hyperglyceridemia] Onset: 10-01-2018 10-01-2018 Chronic HIV infection (20 sources) HIV positive; Translations: [Asymptomatic human immunodeficiency virus [HIV] infection status] Onset: 07-02-2019 07-02-2019 Chronic Immunizations and screening for infectious disease (3 sources) Vaccination needed; Translations: [Encounter for immunization] Onset: 10-24-2022 Episodic Other aftercare (2 sources) joint terminal attack controller (current) use of insulin; Translations: [Diabetes mellitus type 2, insulin dependent (HCC)] Onset: 01-23-2023 Episodic Other and unspecified benign neoplasm (1 source) Tubular adenoma ; Translations: [Benign neoplasm, unspecified site] Episodic Other connective tissue disease (7 sources) Triggering of digit; Translations: [Trigger finger, left middle finger] Episodic Other nutritional; endocrine; and metabolic disorders (20 sources) Body mass index 40+ - severely obese; Translations: [Morbid (severe) obesity due to excess calories] 10-01-2018 Chronic Other nutritional; endocrine; and metabolic disorders (1 source) Morbid (severe) obesity due to excess calories; Translations: [Morbid obesity with BMI of 40.0-44.9, adult (HCC)] Onset: 10-01-2018 Chronic Other nutritional; endocrine; and metabolic disorders (1 source) Body mass index (BMI) 40.0-44.9, adult; Translations: [Morbid obesity with BMI of 40.0-44.9, adult ([facility])] Onset: 10-01-2018 Chronic Other screening for suspected conditions (not mental disorders or infectious disease) (4 sources) Patient encounter status; Translations: [Encounter for screening for malignant neoplasm of colon] Episodic Other upper respiratory infections (1 source) Upper respiratory infection; Translations: [Acute upper respiratory infection, unspecified] Episodic Screening and history of mental health and substance abuse codes (20 sources) Tobacco use and exposure - finding; Translations: [Personal history of nicotine dependence] 04-12-2021 Episodic Skin and subcutaneous tissue infections (1 source) Infection of skin; Translations: [Local infection of the skin and subcutaneous tissue, unspecified] 06-24-2023 Episodic Substance-related disorders (2 sources) Nicotine dependence, unspecified, uncomplicated; Translations: [Nicotine dependence, unspecified, uncomplicated] Onset: 05-09-2017 Chronic Superficial injury; contusion (1 source) Nonvenomous insect bite of elbow without infection; Translations: [Insect bite (nonvenomous) of right elbow, initial encounter] 02-28-2023 Episodic Past or Other Problems Problem Classification Problem Date Documented Da te Episodic/Chronic Fluid and electrolyte disorders (2 sources) Hypokalemia; Translations: [Hypokalemia] Onset: 05-09-2017 Episodic Nausea and vomiting (2 sources) Nausea; Translations: [Nausea] Onset: 05-09-2017 Episodic Nonmalignant breast conditions (3 sources) Lump in upper inner quadrant of left breast; Translations: [Unspecified lump in the left breast, upper inner quadrant] Onset: 03-19-2023 02-13-2023 Episodic Other connective tissue disease (1 source) Trigger finger, right ring finger; Translations: [Trigger ring finger of right hand] Onset: 02-20-2023 Episodic Other connective tissue disease (1 source) Trigger finger, left middle finger; Translations: [Trigger middle finger of left hand] Onset: 11-28-2022 Episodic Other connective tissue disease (1 source) Trigger finger, left ring finger; Translations: [Trigger ring finger of left hand] Onset: 11-28-2022 Episodic Other gastrointestinal disorders (2 sources) Diarrhea, unspecified; Translations: [Diarrhea, unspecified] Onset: 05-09-2017 Episodic Viral infection (20 sources) Wart of anal mucosa caused by Human papillomavirus; Translations: [Anogenital (venereal) warts] Onset: 10-01-2018 10-01-2018 Episodic Results Test Name Value Interpretation Reference Range Facil ity Vital Signs Date Time Vital Sign Value Performing Clinician Aleena cole 06-24-2023 15:06-0500 Body temperature 97.5 [degF] Jeimy Frazier PA-C Work Phone: [facility] 06-24-2023 15:06-0500 Body weight 121.93 kg Jeimy Frazier PA-C Work Phone: [facility] 06-24-2023 15:06-0500 Diastolic blood pressure 78 mm[Hg] Jeimy Frazier PA-C Work Phone: [facility] 06-24-2023 15:06-0500 Heart rate 82 /min Jeimy Athy PA-C Work Phone: [facility] 06-24-2023 15:06-0500 Respiratory rate 16 /min Jeimy Athy PA-C Work Phone: [facility] 06-24-2023 15:06-0500 SaO2% (BldA) [Mass fraction] 99 % Jeimy Athy PA-C Work Phone: [facility] 06-24-2023 15:06-0500 Systolic blood pressure 132 mm[Hg] Jeimy Athy PA-C Work Phone: [facility] 05-02-2023 09:06-0400 Body weight 121.47 kg Armin Podlogar HOT BOX OPERATOR.COLLECTIONS ATTORNEY Work Phone: [facility] 05-02-2023 09:06-0400 Diastolic blood pressure 80 mm[Hg] Armin Podlogar HOT BOX OPERATOR.COLLECTIONS ATTORNEY Work Phone: [facility] 05-02-2023 09:06-0400 Heart rate 74 /min Armin Podlogar HOT BOX OPERATOR.COLLECTIONS ATTORNEY Work Phone: [facility] 05-02-2023 09:06-0400 Respiratory rate 18 /min Armin Podlogar HOT BOX OPERATOR.COLLECTIONS ATTORNEY Work Phone: [facility] 05-02-2023 09:06-0400 SaO2% (BldA) [Mass fraction] 94 % Armin Podlogar HOT BOX OPERATOR.COLLECTIONS ATTORNEY Work Phone: [facility] 05-02-2023 09:06-0400 Systolic blood pressure 136 mm[Hg] Armin Podlogar HOT BOX OPERATOR.COLLECTIONS ATTORNEY Work Phone: [facility] 02-28-2023 16:08-0400 Body temperature 98.4 [degF] Jazmyn Alexander HOT BOX OPERATOR.COLLECTIONS ATTORNEY Work Phone: [facility] 02-28-2023 16:08-0400 Body weight 122.02 kg Jazmyn Alexander HOT BOX OPERATOR.COLLECTIONS ATTORNEY Work Phone: [facility] 02-28-2023 16:08-0400 Diastolic blood pressure 74 mm[Hg] Jazmyn Catherine HOT BOX OPERATOR.COLLECTIONS ATTORNEY Work Phone: [facility] 02-28-2023 16:08-0400 Heart rate 80 /min Jazmyn Catherine HOT BOX OPERATOR.COLLECTIONS ATTORNEY Work Phone: [facility] 02-28-2023 16:08-0400 Respiratory rate 18 /min Jazmyn Catherine HOT BOX OPERATOR.COLLECTIONS ATTORNEY Work Phone: [facility] 02-28-2023 16:08-0400 SaO2% (BldA) [Mass fraction] 95 % Jazmyn Catherine HOT BOX OPERATOR.COLLECTIONS ATTORNEY Work Phone: [facility] 02-28-2023 16:08-0400 Systolic blood pressure 126 mm[Hg] Jazmyn Catherine HOT BOX OPERATOR.COLLECTIONS ATTORNEY Work Phone: [facility] 02-13-2023 09:49-0400 Body weight 120.39 kg Saeed Perez MD Work Phone: [facility] 02-13-2023 09:49-0400 Diastolic blood pressure 72 mm[Hg] Saeed Perez MD Work Phone: [facility] 02-13-2023 09:49-0400 Heart rate 80 /min Saeed Perez MD Work Phone: [facility] 02-13-2023 09:49-0400 Respiratory rate 16 /min Saeed Perez MD Work Phone: [facility] 02-13-2023 09:49-0400 SaO2% (BldA) [Mass fraction] 98 % Saeed Perez MD Work Phone: [facility] 02-13-2023 09:49-0400 Systolic blood pressure 110 mm[Hg] Saeed Perez MD Work Phone: [facility] 10-24-2022 15:34-0400 Body weight 120.47 kg Saeed Perez MD Work Phone: [facility] 10-24-2022 15:34-0400 Diastolic blood pressure 66 mm[Hg] Saeed Perez MD Work Phone: [facility] 10-24-2022 15:34-0400 Heart rate 83 /min Saeed Perez MD Work Phone: [facility] 10-24-2022 15:34-0400 Respiratory rate 16 /min Saeed Perez MD Work Phone: [facility] 10-24-2022 15:34-0400 SaO2% (BldA) [Mass fraction] 98 % Saeed Perez MD Work Phone: [facility] 10-24-2022 15:34-0400 Systolic blood pressure 122 mm[Hg] Saeed Perez MD Work Phone: [facility] 07-09-2022 09:33-0500 Body temperature 98.4 [degF] [facility] H[facility] BOX OPERATOR.COLLECTIONS ATTORNEY Work Phone: [facility] 07-09-2022 09:33-0500 Body weight 121.11 kg [facility] HOT BOX OPERATOR.COLLECTIONS ATTORNEY Work Phone: [facility] 07-09-2022 09:33-0500 Diastolic blood pressure 76 mm[Hg] Messi [place]bury HOT BOX OPERATOR.COLLECTIONS ATTORNEY Work Phone: [facility] 07-09-2022 09:33-0500 Heart rate 80 /min Messi P[place]bury HOT BOX OPERATOR.COLLECTIONS ATTORNEY Work Phone: [facility] 07-09-2022 09:33-0500 Respiratory rate 16 /min [facility] HOT BOX OPERATOR.COLLECTIONS ATTORNEY Work Phone: [facility] 07-09-2022 09:33-0500 SaO2% (BldA) [Mass fraction] 100 % Messi Pendlebury HOT BOX OPERATOR.COLLECTIONS ATTORNEY Work Phone: [facility] 07-09-2022 09:33-0500 Systolic blood pressure 126 mm[Hg] Messi [place] HOT BOX OPERATOR.COLLECTIONS ATTORNEY Work Phone: [facility] 04-12-2022 09:59-0400 Body weight 120.66 kg Armin Podlogar HOT BOX OPERATOR.COLLECTIONS ATTORNEY Work Phone: [facility] 04-12-2022 09:59-0400 Diastolic blood pressure 68 mm[Hg] Armin Podlogar HOT BOX OPERATOR.COLLECTIONS ATTORNEY Work Phone: [facility] 04-12-2022 09:59-0400 Heart rate 85 /min Armin Podlogar HOT BOX OPERATOR.COLLECTIONS ATTORNEY Work Phone: [facility] 04-12-2022 09:59-0400 Respiratory rate 18 /min Armin Podlogar HOT BOX OPERATOR.COLLECTIONS ATTORNEY Work Phone: [facility] 04-12-2022 09:59-0400 SaO2% (BldA) [Mass fraction] 97 % Armin Podlogar HOT BOX OPERATOR.COLLECTIONS ATTORNEY Work Phone: [facility] 04-12-2022 09:59-0400 Systolic blood pressure 112 mm[Hg] Armin Podlogar HOT BOX OPERATOR.COLLECTIONS ATTORNEY Work Phone: [facility] 01-11-2022 14:16-0400 Body temperature 97.7 [degF] Saeed Perez MD Work Phone: [facility] 01-11-2022 14:16-0400 Body weight 117.94 kg Saeed Perez MD Work Phone: [facility] 01-11-2022 14:16-0400 Diastolic blood pressure 70 mm[Hg] Saeed Perez MD Work Phone: [facility] 01-11-2022 14:16-0400 Heart rate 96 /min Saeed Perez MD Work Phone: [facility] 01-11-2022 14:16-0400 Respiratory rate 16 /min Saeed Perez MD Work Phone: [facility] 01-11-2022 14:16-0400 Systolic blood pressure 112 mm[Hg] Saeed Perez MD Work Phone: [facility] 10-24-2021 10:03-0400 Body height 167.6 cm Jigna Ayala PA-C Work Phone: [facility] 10-24-2021 10:03-0400 Body temperature 95.11 [degF] Jigna Jamie PA-C Work Phone: [facility] 10-24-2021 10:03-0400 Body weight 120.75 kg Jigna Jamie PA-C Work Phone: [facility] 10-24-2021 10:03-0400 Diastolic blood pressure 72 mm[Hg] Jigna [place] PA-C Work Phone: [facility] 10-24-2021 10:03-0400 Heart rate 98 /min Jigna Jamie PA-C Work Phone: [facility] 10-24-2021 10:03-0400 SaO2% (BldA) [Mass fraction] 99 % Jigna [place] PA-C Work Phone: [facility] 10-24-2021 10:03-0400 Systolic blood pressure 126 mm[Hg] Jigna Jamie PA-C Work Phone: [facility] 10-16-2021 09:15-0400 Diastolic blood pressure 56 mm[Hg] Sandor Cedeño MD Work Phone: [facility] 10-16-2021 09:15-0400 Heart rate 78 /min Sandor Cedeño MD Work Phone: [facility] 10-16-2021 09:15-0400 Respiratory rate 16 /min Sandor Cedeño MD Work Phone: [facility] 10-16-2021 09:15-0400 SaO2% (BldA) [Mass fraction] 93 % Sandor Cedeño MD Work Phone: [facility] 10-16-2021 09:15-0400 Systolic blood pressure 115 mm[Hg] Sandor Cedeño MD Work Phone: [facility] 10-16-2021 07:09-0400 Body temperature 97.81 [degF] Sandor Cedeño MD Work Phone: [facility] Encounters Encounter Date Encounter Type Care Provider Facility Start: 07-28-2023 End: 07-28-2023 ambulatory REE WEST Facility:[facility] Start: 07-02-2023 Refill Armin Podlogar HOT BOX OPERATOR.COLLECTIONS ATTORNEY Work Phone: [facility] Procedures Date Procedure Procedure Detail Performing Clinician Start: 06-24-2023 Cul bact xcpt urine blood/stool aerobic isol Jeimy Jett Frazier PA-C Work Phone: Start: 05-02-2023 INFLUENZA VACCINE, A GE 6 MO - 64 YR, QUADRIVALENT (AFLURIA, FLULAVAL, FLUZONE) Armin Podlogar HOT BOX OPERATOR.COLLECTIONS ATTORNEY Work Phone: Start: 03-19-2023 Diagnostic mammograp hy computer-aided detcj bi Saeed Perez MD Work Phone: Start: 02-20-2023 Injection 1 tendon sheath/ligament aponeurosis Ree West MD Work Phone: Start: 04-12-2022 INFLUENZA VACCINE QUADRIVALENT 6 MO - 64 YRS IM Armin Podlogar HOT BOX OPERATOR.COLLECTIONS ATTORNEY Work Phone: Start: 04-12-2022 PFIZER-BIONTECH COVI D-19 BIVALENT BOOSTER VACCINE, AGE 12+ YR Armin Podlogar HOT BOX OPERATOR.COLLECTIONS ATTORNEY Work Phone: Start: 01-09-2022 Adult depression scr eening assessment Saeed Perez MD Work Phone: Start: 10-16-2021 Gluc bld gluc mntr d ev cleared fda spec home use Sandor Cedeño MD Work Phone: Start: 10-16-2021 Gluc bld gluc mntr d ev cleared fda spec home use Sandor Cedeño MD Work Phone: Start: 10-16-2021 Colonoscopy flx dx w /collj spec when pfrmd Sandor Cedeño MD Work Phone: Start: 10-16-2021 Colonoscopy Sandor lafleur MD Work Phone: Start: 10-28-2020 Adult depression scr eening assessment Sandor Cedeño MD Work Phone: Plan of Treatment Date Care Activity Detail Author Start: 06-29-2030 Urine microalbumin profile [facility] Start: 10-16-2024 Colonoscopy COLONOSCOPY [facility] Start: 10-16-2024 COLORECTAL CANCER SCREENING COLORECTAL CANCER SCREENING [facility] Start: 10-16-2024 Screening for malignant neoplasm of colon [facility] Start: 05-02-2024 3 comp foot exam completed Diabetic Foot Exam [facility] Start: 05-02-2024 Annual PCP Team Chronic Disease Visit Annual PCP Team Chronic Disease Visit [facility] Start: 05-02-2024 Diabetic foot examination Diabetic Foot Exam [facility] Start: 04-28-2024 Hepatitis B screening Urine Albumin:Creatinine Ratio [facility] Start: 02-15-2024 Glaucoma screening Dilated Retinal Exam [facility] Start: 02-15-2024 Hepatitis C antibody, confirmatory test DILATED RETINAL EXAM [facility] Start: 02-14-2024 ANNUAL PCP TEAM CHRONIC DISEASE VISIT ANNUAL PCP TEAM CHRONIC DISEASE VISIT [facility] Start: 10-28-2023 Hemoglobin A1c measurement HbA1C [facility] Start: 10-28-2023 Hemoglobin A1c/Hemoglobin.total in Blood HbA1C [facility] Start: 10-25-2023 ANNUAL PCP TEAM CHRONIC DISEASE VISIT ANNUAL PCP TEAM CHRONIC DISEASE VISIT [facility] Start: 10-05-2023 Hepatitis B surface antibody level LDL CHOLESTEROL [facility] Start: 07-26-2023 Hemoglobin A1c/Hemoglobin.total in Blood HBA1C [facility] Start: 05-01-2023 HEPATITIS A (3 of 3 - Hep A Twinrix risk 3-dose series) HEPATITIS A (3 of 3 - Hep A Twinrix risk 3-dose series) [facility] Start: 05-01-2023 Hepatitis A Vaccine (3 of 3 - Hep A Twinrix risk 3-dose series) Hepatitis A Vaccine (3 of 3 - Hep A Twinrix risk 3-dose series) [facility] Start: 05-01-2023 HEPATITIS B (3 of 3 - Hep B Twinrix 3-dose series) HEPATITIS B (3 of 3 - Hep B Twinrix 3-dose series) [facility] Start: 05-01-2023 Hepatitis B Vaccine (3 of 3 - Hep B Twinrix 3-dose series) Hepatitis B Vaccine (3 of 3 - Hep B Twinrix 3-dose series) [facility] Start: 04-22-2023 Hepatitis a & b vaccine hepa-hepb adult im HEP A-HEP B VACCINE (TWINRIX) Immunization/Injection Routine Need for vaccination Expected: 04/22/2023 (Approximate) [facility] Work Phone: Immunizations Immunization Date Immunization Notes Care Provider Pam sheets 05-02-2023 hepatitis A and hepatitis B vaccine Armin Podlogar HOT BOX OPERATOR.COLLECTIONS ATTORNEY Work Phone: [facility] 05-02-2023 influenza, injectabl e, quadrivalent, contains preservative Armin Podlogar HOT BOX OPERATOR.COLLECTIONS ATTORNEY Work Phone: [facility] 11-29-2022 hepatitis A and hepatitis B vaccine Armin Podlogar HOT BOX OPERATOR.COLLECTIONS ATTORNEY Work Phone: [facility] Work Phone: 11-29-2022 hepatitis B vaccine, unspecified formulation Ree West MD Work Phone: [facility] 10-24-2022 pneumococcal Conjuga te, unspecified formulation Saeed Perez MD Work Phone: [facility] Work Phone: 10-24-2022 hepatitis A and hepatitis B vaccine Saeed Perez MD Work Phone: [facility] 10-24-2022 pneumococcal (PCV20) vaccine, 20 valent (PREVNAR 20) Saeed Perez MD Work Phone: [facility] 10-24-2022 hepatitis B vaccine, unspecified formulation Saeed Perez MD Work Phone: [facility] 04-12-2022 COVID-19 booster vaccine, age 12+ yr, bivalent (PFIZER-BIONTIcanbesponsored) Armin Podlogar HOT BOX OPERATOR.COLLECTIONS ATTORNEY Work Phone: [facility] 04-12-2022 influenza, injectabl e, quadrivalent, contains preservative Armin Podlogar HOT BOX OPERATOR.COLLECTIONS ATTORNEY Work Phone: [facility] 04-12-2022 influenza virus vaccine, unspecified formulation Armin Podlogar HOT BOX OPERATOR.COLLECTIONS ATTORNEY Work Phone: [facility] 07-05-2021 COVID-19 vaccine, ag e 12+ yr (PFIZER-BIONTECH - PURPLE TOP) Sandor Cedeño MD Work Phone: [facility] 04-12-2021 influenza, injectabl e, quadrivalent, contains preservative Sandor Cedeño MD Work Phone: [facility] 01-11-2021 meningococcal polysaccharide (groups A, C, Y and W-135) diphtheria toxoid conjugate vaccine (MCV4P) Sandor Cedeño MD Work Phone: [facility] 10-31-2020 COVID-19 vaccine, ag e 12+ yr (PFIZER-BIONTECH - PURPLE TOP) Sandor Cedeño MD Work Phone: [facility] 10-10-2020 COVID-19 vaccine, ag e 12+ yr (PFIZER-BIONTECH - PURPLE TOP) Sandor Cedeño MD Work Phone: [facility] Work Phone: 06-29-2020 meningococcal polysaccharide (groups A, C, Y and W-135) diphtheria toxoid conjugate vaccine (MCV4P) Sandor Cedeño MD Work Phone: [facility] 06-29-2020 tetanus toxoid, redu neha diphtheria toxoid, and acellular pertussis vaccine, adsorbed Sandor Cedeño MD Work Phone: [facility] 04-07-2020 influenza, injectabl e, quadrivalent, contains preservative Sandor Cedeño MD Work Phone: [facility] 07-01-2019 influenza, injectabl e, quadrivalent, contains preservative Sandor Cedeño MD Work Phone: [facility] 08-06-2018 influenza, injectabl e, quadrivalent, contains preservative Sandor Cedeño MD Work Phone: [facility] 08-09-2015 TD(adult) unspecifie d formulation Sandor Cedeño MD Work Phone: [facility] Work Phone: 08-09-2015 tetanus and diphther ia toxoids, adsorbed, preservative free, for adult use (2 Lf of tetanus toxoid and 2 Lf of diphtheria toxoid) Saeed Perez MD Work Phone: [facility] Work Phone: 04-28-2014 influenza, seasonal, injectable Saeed Perez MD Work Phone: [facility] Work Phone: 04-28-2014 influenza, seasonal, injectable, preservative free Sandor Cedeño MD Work Phone: [facility] Work Phone: 07-13-2012 pneumococcal polysaccharide vaccine, 23 valent Sandor Cedeño MD Work Phone: [facility] 05-13-2012 influenza virus vaccine, unspecified formulation Sandor Cedeño MD Work Phone: [facility] Work Phone: 04-22-2011 pneumococcal polysaccharide vaccine, 23 valent Saeed Perez MD Work Phone: [facility] Work Phone: Payers Date Payer Category Payer Unknown [id number] 2019 Unknown EMILY MANZO PPO [id number] 2019-Present [phone] [address] [place] [address] PPO [id number] 2019 Unknown [id number] Self-pay Social History Date Type Detail Facility Start: 09-30-2019 End: 04-12-2022 Tobacco smoking status NHIS Ex-smoker [facility] Work Phone: End: 07-21-2005 History of tobacco use Current smoker [facility] Work Phone: End: 07-21-2005 History of tobacco use Cigarette Smoker [facility] Work Phone: Start: 09-30-2019 End: 04-12-2022 Tobacco use and exposure Smokeless tobacco non-user [facility] Work Phone: Start: 10-16-2021 End: 06-24-2023 Alcohol intake Current drinker of alcohol (finding) [facility] Start: 10-28-2020 End: 10-03-2022 History SDOH Alcohol Frequency 2 [facility] Start: 10-28-2020 End: 10-03-2022 History SDOH Alcohol Std Drinks 1 [facility] Start: 10-16-2021 History SDOH Alcohol Comment occasionally [facility] Start: 10-28-2020 History SDOH Social Connections Phone 5 [facility] Start: 10-28-2020 History SDOH Social Connections Living 7 [facility] Start: 10-28-2020 End: 10-03-2022 History SDOH Physical Activity DPW 4 [facility] Start: 10-28-2020 History SDOH Physical Activity MPS 6 [facility] Start: 10-28-2020 Education 12 [facility] Start: 10-01-2018 End: 04-12-2022 Tobacco Comment 1 cigarette per month [facility] Start: 1975 Sex Assigned At Male [facility] Start: 10-06-2021 End: 01-11-2022 Exposure to SARS-CoV-2 (event) Not sure [facility] Work Phone: Start: 04-02-2022 End: 04-12-2022 Exposure to SARS-CoV-2 (event) Unable to assess [facility] Work Phone: Start: 10-03-2022 History SDOH Alcohol Frequency 3 [facility] Start: 10-03-2022 History SDOH Social Connections Living 8 [facility] Start: 08-14-2022 End: 10-03-2022 History of Social function [facility] Start: 08-14-2022 End: 10-03-2022 Social connection and isolation panel [facility] Do you belong to any clubs or organizations such as catholic groups, unions, fraternal or athletic groups, or school groups? No [facility] Are you now , , , , never or living with a partner? Living with partner [facility] How often to you hav e a drink containing alcohol? 2-4 times a month [facility] How many standard dr inks containing alcohol do you have on a typical day? 1 or 2 [facility] How often do you hav e 6 or more drinks on 1 occasion? Never [facility] How hard is it for y ou to pay for the very basics like food, housing, medical care, and heating Not very hard [facility] Adult Depression Screening Assessment 0 [facility] Do you feel stress - tense, restless, nervous, or anxious, or unable to sleep at night because your mind is troubled all the time - these days [OSQ] Not at all [facility] (I/We) worried wheth er (my/our) food would run out before (I/we) got money to buy more. Never true [facility] Start: 01-11-2021 Gender identity Identifies as male gender (finding) [facility] Medical Equipment Procedure Code Equipment Code Equipment Origin al Text Equipment Identifier Dates Start: 08-06-2018 End: 07-02-2023 Clinical Notes 05-13-2012 to 07-28-2023 Telephone Encounter - Tori Tavera LPN - 07/02/2023 10:27 AM ESTTelephone Encounter - Tori Tavera LPN - 07/02/2023 10:27 AM Jeimy Sanchez PA-C - 06/24/2023 3:18 PM EST Note Date & Type Note Facility 07-28-2023 Note HNO ID: [id number] Author: REE WEST MD Service: ? Author Type: Physician Type: Progress Notes Filed: 07/28/2023 10:12 Note Text: Ree West MD Department of Orthopaedics Orthopaedics [address] [facility] [address] Dept: [phone] Dept July 28, 2023 CHIEF COMPLAINT: Established Patient of the Right Hand (3 month post visit right ring trigger finger with injection given ) HPI: Patient states the last injection helped a lot. States it helped for a couple months before symptoms started returning. He would like another injection today. ASSESSMENT: M65.341 Trigger ring finger of right hand (primary encounter diagnosis) PLAN: repeat injection today, and possible surgery down the line. Consent today. Mr. Tonia Valdez was advised as to contrast therapies and/or to take analgesics/anti-inflammatories as needed and all contraindications were reviewed. OBJECTIVE: Mr. Tonia Valdez is a pleasant 48 year old in no apparent distress. Gen:There were no vitals taken for this visit. nl development, obese, no deformities ENT: Normocephalic, normal hearing, moist mucosa CV: Pulses:Radial= 2+ and symmetric, capillary refill < 2 secs, no peripheral edema/varicosities Skin: no rash, bruising or lesions. Good turgor. Psych: cooperative and appropriate, alert and oriented x 3, good mood and affect. Musculoskeletal: Clicking of the right ring finger. Tender at the A1 carlos. Additional Injections: R ring A1 for trigger finger Informed Consent Consent Obtained: Verbal [place] Protocol A moment to CARE was completed. SIGN IN Personnel directly involved with the procedure wore the appropriate PPE. Special Equipment: N/A Patient/Surrogate Stated/Verified: Patient name, Date of , Relevant allergies and Intended procedure TIME OUT Intended patient and procedure match the source document(s). Consent documented and matches the intended procedure. Relevant labs, photos, and/or imaging studies have been reviewed. Correct side/site marked and visible. Medications required for procedure verified. No fire risk assessment and interventions applicable. No implant(s) inserted. 07/28/2023 8:42 AM The procedure site was prepped in the usual sterile fashion. Medications: 3 mg betamethasone acetate-betamethasone sodium phosphate 6 mg/mL Anesthetics: 0.5 mL lidocaine (PF) 10 mg/mL (1 %) Outcome: tolerated well, no immediate complications Post-injection instructions were reviewed with the patient and the patient voiced understanding of these instructions. SIGN OUT All instruments, equipment, possible retained foreign bodies accounted for. Supporting Subjective Information Below: Past Surgical History: PAST SURGICAL HISTORY Procedure Laterality Date COLONOSCOPY 10/16/2021 repeat in 3 years EYE SURGERY HX as a child NONE PAST SURGICAL HISTORY OF Left 01/02/2023 middle and ring finger trigger releases Medications: Current Outpatient Medications Medication Sig empagliflozin (JARDIANCE) 25 mg tablet Take 1 tablet by mouth once daily. Take 1 tablet once daily in the morning blood sugar diagnostic (Visual UnityTOUCH VERIO TEST STRIPS) test strip Use to test blood sugars up to twice daily as instructed. metFORMIN (GLUCOPHAGE) 1,000 mg tablet Take 1 tablet by mouth two times a day with meals. Insulin [place], Disposable, (BD ULTRAFINE III MINI PEN) 31 gauge x 3/16 Use to inject insulin 5 times daily as directed lisinopril (ZESTRIL) 10 mg tablet Take 1 tablet by mouth once daily. rosuvastatin (CRESTOR) 5 mg tablet Take 1 tablet by mouth daily at bedtime. insulin detemir U-100 (LEVEMIR FLEXPEN) 100 unit/mL (3 mL) injection pen Inject 50 Units subcutaneously twice daily. insulin aspart U-100 (NOVOLOG FLEXPEN U-100 INSULIN) 100 unit/mL (3 mL) Inject 12 Units subcutaneously three times daily before meals. aspirin, enteric coated (ASPIRIN, ENTERIC COATED) 81 mg EC tablet Take 81 mg by mouth once daily. BIKTARVY 50-200-25 mg per tablet Take 1 tablet by mouth daily at bedtime. Blood-Glucose Meter (FluxDrive VERIO IQ METER) [facility] Use to check blood sugar up to twice daily as directed. Lancets lancets Test blood sugar(s) 2 times daily. Dx: Type 2 DM - Uncontrolled E11.65 Insulin: Yes multivitamin tablet Take 1 tablet by mouth once daily. triamcinolone acetonide (KENALOG) 0.1 % cream Apply 1 application to affected area three times daily. Apply sparingly to area for rash/itching. flash glucose sensor (FREESTYLE ERLIN 2 SENSOR) kit Take blood sugar three times a day and as needed. Change device weekly Blood-Glucose Sensor (DEXCOM G6 SENSOR) holley Check blood sugars four times a day and as needed. Change device weekly benzonatate (TESSALON PERLES) 100 mg capsule Take 1 capsule by mouth three times daily as needed for cough. No current facility-administered medications for this visit. Allergies: Lipitor [Atorvastatin Calciu (more content not included)... [facility] 07-02-2023 Miscellaneous Notes KALMESH-05/02/23 Labs-04/28/23 NOV-10/31/23 Tori Tavera LPN documented in this encounter [facility] 07-02-2023 Miscellaneous Notes KAMLESH-05/02/23 Labs-04/28/23 NOV-10/31/23 Tori Tavera LPN documented in this encounter [facility] 06-24-2023 Note HNO ID: [id number] Author: Jeimy Frazier PA-C Service: ? Author Type: Physician Monorail Crane Operator Type: Progress Notes Filed: 06/24/2023 3:23 PM Note Text: This note was created using VitaPortal. Subjective Tonia Valdez is a 48 year old male. HPI Presents with an open sore to the left leg for 2 days. He had a history of cellulitis 3 years ago and was concerned that was starting again. He denies fever or chills. He does have a history of diabetes as well as HIV. He is currently taking antiretroviral treatment for his HIV. No drainage from the area. Denies any injury to the area or scratching the area. Review of Systems Skin: Left lower leg sore All other systems reviewed and are negative. PAST MEDICAL HISTORY Diagnosis Date Diabetic nephropathy (HCC) History of tobacco use HIV positive (HCC) Dr. Mccann Hyperlipidemia Hypertension Morbid obesity with BMI of 40.0-44.9, adult (HCC) Type II or unspecified type diabetes mellitus without mention of complication, not stated as uncontrolled Current Outpatient Medications Medication Sig Dispense Refill lisinopril (ZESTRIL) 10 mg tablet Take 1 tablet by mouth once daily. 90 tablet 1 rosuvastatin (CRESTOR) 5 mg tablet Take 1 tablet by mouth daily at bedtime. 90 tablet 3 insulin detemir U-100 (LEVEMIR FLEXPEN) 100 unit/mL (3 mL) injection pen Inject 50 Units subcutaneously twice daily. 90 mL 1 insulin aspart U-100 (NOVOLOG FLEXPEN U-100 INSULIN) 100 unit/mL (3 mL) Inject 12 Units subcutaneously three times daily before meals. 5 Each 5 metFORMIN (GLUCOPHAGE) 1,000 mg tablet Take 1 tablet by mouth twice daily with meals. 180 tablet 1 empagliflozin (JARDIANCE) 25 mg tablet Take 1 tablet by mouth once daily. Take 1 tablet once daily in the morning 90 tablet 1 Insulin [place], Disposable, (BD ULTRAFINE III MINI PEN) 31 gauge x 3/16 Use to inject insulin 5 times daily as directed 100 Each 11 blood sugar diagnostic (ONETOUCH VERIO TEST STRIPS) test strip Use to test blood sugars up to twice daily as instructed. 100 Strip 11 aspirin, enteric coated (ASPIRIN, ENTERIC COATED) 81 mg EC tablet Take 81 mg by mouth once daily. BIKTARVY 50-200-25 mg per tablet Take 1 tablet by mouth daily at bedtime. Blood-Glucose Meter (ONETOUCH VERIO IQ METER) [facility] Use to check blood sugar up to twice daily as directed. 1 Each 0 Lancets lancets Test blood sugar(s) 2 times daily. Dx: Type 2 DM - Uncontrolled E11.65 Insulin: Yes 100 Each 11 multivitamin tablet Take 1 tablet by mouth once daily. doxycycline (VIBRA-TABS) 100 mg tablet Take 1 tablet by mouth two times a day for 7 days. 14 tablet 0 triamcinolone acetonide (KENALOG) 0.1 % cream Apply 1 application to affected area three times daily. Apply sparingly to area for rash/itching. 30 g 0 flash glucose sensor (FREESTYLE ERLIN 2 SENSOR) kit Take blood sugar three times a day and as needed. Change device weekly 4 Kit 5 Blood-Glucose Sensor (DEXCOM G6 SENSOR) holley Check blood sugars four times a day and as needed. Change device weekly 4 Each 3 benzonatate (TESSALON PERLES) 100 mg capsule Take 1 capsule by mouth three times daily as needed for cough. 15 capsule 0 No current facility-administered medications for this visit. PAST SURGICAL HISTORY Procedure Laterality Date COLONOSCOPY 10/16/2021 repeat in 3 years EYE SURGERY HX as a child NONE PAST SURGICAL HISTORY OF Left 01/02/2023 middle and ring finger trigger releases FAMILY HISTORY Problem Relation Age of Onset Hypertension Maternal Grandmother Diabetes Maternal Grandmother Hypertension Maternal Grandfather Diabetes Maternal Grandfather Diabetes Mother Prostate Cancer Father Heart disease Brother No Known Problems Paternal Grandmother No Known Problems Paternal Grandfather No Ocular Disease No Family History Social History Tobacco Use Smoking status: Former Types: Cigarettes Quit date: 07/21/2005 Years since quittin.9 Smokeless tobacco: Never Tobacco comments: 1 cigarette per month Vaping Use Vaping Use: Never used Substance Use Topics Alcohol use: Yes Comment: occasionally Drug use: No Objective BP 132/78 Pulse 82 Temp 36.4 ?C (97.5 ?F) (Tympanic) Resp 16 Wt 121.9 kg (268 lb 12.8 oz) SpO2 99% BMI 43.39 kg/m? Physical Exam Vitals reviewed. Constitutional: Appearance: Normal appearance. HENT: Head: Normocephalic and atraumatic. Musculoskeletal: Legs: Comments: Patient has an open sore to the left lateral leg with some minimal surrounding erythema. No sign of abscess. No lymphangitic streaking. Skin: General: Skin is warm and dry. Neurological: Mental Status: He is alert. Assessment and Plan ASSESSMENT/PLAN: 1. Skin infection - ICD9: 686.9, ICD10: L08.9 -I did obtain a wound culture. Will start on doxycycline. Patient denies history of MRSA and previous wound culture showed Staph aureus from 2019. Discussed red flags to be seen again. (more content not included)... [facility] 06-24-2023 History of Present illness Narrative Images from the original note were not included. This note was created using Visibizter. Subjective Tonia Valdez is a 48 year old male. HPI Presents with an open sore to the left leg for 2 days. He had a history of cellulitis 3 years ago and was concerned that was starting again. He denies fever or chills. He does have a history of diabetes as well as HIV. He is currently taking antiretroviral treatment for his HIV. No drainage from the area. Denies any injury to the area or scratching the area. Review of Systems Skin: Left lower leg sore All other systems reviewed and are negative. PAST MEDICAL HISTORY Diagnosis Date Diabetic nephropathy (HCC) History of tobacco use HIV positive ([facility]) Dr. Mccann Hyperlipidemia Hypertension Morbid obesity with BMI of 40.0-44.9, adult ([facility]) Type II or unspecified type diabetes mellitus without mention of complication, not stated as uncontrolled Current Outpatient Medications Medication Sig Dispense Refill lisinopril (ZESTRIL) 10 mg tablet Take 1 tablet by mouth once daily. 90 tablet 1 rosuvastatin (CRESTOR) 5 mg tablet Take 1 tablet by mouth daily at bedtime. 90 tablet 3 insulin detemir U-100 (LEVEMIR FLEXPEN) 100 unit/mL (3 mL) injection pen Inject 50 Units subcutaneously twice daily. 90 mL 1 insulin aspart U-100 (NOVOLOG FLEXPEN U-100 INSULIN) 100 unit/mL (3 mL) Inject 12 Units subcutaneously three times daily before meals. 5 Each 5 metFORMIN (GLUCOPHAGE) 1,000 mg tablet Take 1 tablet by mouth twice daily with meals. 180 tablet 1 empagliflozin (JARDIANCE) 25 mg tablet Take 1 tablet by mouth once daily. Take 1 tablet once daily in the morning 90 tablet 1 Insulin [place], Disposable, (BD ULTRAFINE III MINI PEN) 31 gauge x 3/16 Use to inject insulin 5 times daily as directed 100 Each 11 blood sugar diagnostic (Visual UnityTOUCH VERIO TEST STRIPS) test strip Use to test blood sugars up to twice daily as instructed. 100 Strip 11 aspirin, enteric coated (ASPIRIN, ENTERIC COATED) 81 mg EC tablet Take 81 mg by mouth once daily. BIKTARVY 50-200-25 mg per tablet Take 1 tablet by mouth daily at bedtime. Blood-Glucose Meter (Visual UnityTOUCH VERIO IQ METER) [facility] Use to check blood sugar up to twice daily as directed. 1 Each 0 Lancets lancets Test blood sugar(s) 2 times daily. Dx: Type 2 DM - Uncontrolled E11.65 Insulin: Yes 100 Each 11 multivitamin tablet Take 1 tablet by mouth once daily. doxycycline (VIBRA-TABS) 100 mg tablet Take 1 tablet by mouth two times a day for 7 days. 14 tablet 0 triamcinolone acetonide (KENALOG) 0.1 % cream Apply 1 application to affected area three times daily. Apply sparingly to area for rash/itching. 30 g 0 flash glucose sensor (FREESTYLE ERLIN 2 SENSOR) kit Take blood sugar three times a day and as needed. Change device weekly 4 Kit 5 Blood-Glucose Sensor (DEXCOM G6 SENSOR) holley Check blood sugars four times a day and as needed. Change device weekly 4 Each 3 benzonatate (TESSALON PERLES) 100 mg capsule Take 1 capsule by mouth three times daily as needed for cough. 15 capsule 0 No current facility-administered medications for this visit. PAST SURGICAL HISTORY Procedure Laterality Date COLONOSCOPY 10/16/2021 repeat in 3 years EYE SURGERY HX as a child NONE PAST SURGICAL HISTORY OF Left 01/02/2023 middle and ring finger trigger releases FAMILY HISTORY Problem Relation Age of Onset Hypertension Maternal Grandmother Diabetes Maternal Grandmother Hypertension Maternal Grandfather Diabetes Maternal Grandfather Diabetes Mother Prostate Cancer Father Heart disease Brother No Known Problems Paternal Grandmother No Known Problems Paternal Grandfather No Ocular Disease No Family History Social History Tobacco Use Smoking status: Former Types: Cigarettes Quit date: 07/21/2005 Years since quittin.9 Smokeless tobacco: Never Tobacco comments: 1 cigarette per month Vaping Use Vaping Use: Never used Substance Use Topics Alcohol use: Yes Comment: occasionally Drug use: No Objective BP 132/78 Pulse 82 Temp 36.4 C (97.5 F) (Tympanic) Resp 16 Wt 121.9 kg (268 lb 12.8 oz) SpO2 99% BMI 43.39 kg/m Physical Exam Vitals reviewed. Constitutional: Appearance: Normal appearance. HENT: Head: Normocephalic and atraumatic. Musculoskeletal: Legs: Comments: Patient has an open sore to the left lateral leg with some minimal surrounding erythema. No sign of abscess. No lymphangitic streaking. Skin: General: Skin is warm and dry. Neurological: Mental Status: He is alert. Assessment and Plan ASSESSMENT/PLAN: 1. Skin infection - ICD9: 686.9, ICD10: L08.9 -I did obtain a wound culture. Will start on doxycycline. Patient denies history of MRSA and previous wound culture showed Staph aureus from 2019. Discussed red flags to be seen again. Patient agreeable. - ABSCESS AND WOUND CULTURE WITH GRAM STAIN Jeimy Frazier PA-C documented in this encounter [facility] 05-02-2023 Note HNO ID: [id number] Author: Armin Giordano APRN.COLLECTIONS ATTORNEY Service: ? Author Type: Nurse Practitioner Type: Progress Notes Filed: 05/02/2023 10:18 AM Note Text: 05/02/2023 Patient presents with: F/U 6 Month SUBJECTIVE: This is a 48 year old that is here today for Above Complaints. Since last office visithas been in good health without ER visits or hospitalizations. No concerns today DIABETES MELLITUS: Since his last visit he denies excessive thirst or increased frequency of urination, chest pain or dyspnea , numbness, tingling or pain in extremities, new or unusual visual symptoms, low sugar/hypoglycemic reactions, weight loss/gain, lightheadedness/dizziness, and bowel changes/loose stools.Follows a diabetic diet most of the time. He is compliant with medication(s) and is tolerating med(s) without any side effects. He reports checking his glucose on a twice a day schedule with sugars in the <150 range. Patient's last HgA1C was Hemoglobin A1C (%) Date Value 04/28/2023 6.8 01/23/2023 7.2 04/06/2021 6.8 01/04/2021 6.4 ) Last Ophthalmology exam was within the past 12 months PAST MEDICAL HISTORY Diagnosis Date Diabetic nephropathy ([facility]) History of tobacco use HIV positive ([facility]) Dr. Mccann Hyperlipidemia Hypertension Morbid obesity with BMI of 40.0-44.9, adult ([facility]) Type II or unspecified type diabetes mellitus without mention of complication, not stated as uncontrolled ALLERGIES Lipitor [Atorvastatin Calcium] MEDICATIONS Current Outpatient Medications Medication Sig aspirin, enteric coated (ASPIRIN, ENTERIC COATED) 81 mg EC tablet Take 81 mg by mouth once daily. benzonatate (TESSALON PERLES) 100 mg capsule Take 1 capsule by mouth three times daily as needed for cough. BIKTARVY 50-200-25 mg per tablet Take 1 tablet by mouth daily at bedtime. blood sugar diagnostic (ONETOUCH VERIO TEST STRIPS) test strip Use to test blood sugars up to twice daily as instructed. Blood-Glucose Meter (ONETOUCH VERIO IQ METER) [facility] Use to check blood sugar up to twice daily as directed. Blood-Glucose Sensor (DEXCOM G6 SENSOR) holley Check blood sugars four times a day and as needed. Change device weekly empagliflozin (JARDIANCE) 25 mg tablet Take 1 tablet by mouth once daily. Take 1 tablet once daily in the morning flash glucose sensor (FREESTYLE ERLIN 2 SENSOR) kit Take blood sugar three times a day and as needed. Change device weekly insulin aspart U-100 (NOVOLOG FLEXPEN U-100 INSULIN) 100 unit/mL (3 mL) Inject 12 Units subcutaneously three times daily before meals. insulin detemir U-100 (LEVEMIR FLEXPEN) 100 unit/mL (3 mL) injection pen Inject 50 Units subcutaneously twice daily. Insulin [place], Disposable, (BD ULTRAFINE III MINI PEN) 31 gauge x 3/16 Use to inject insulin 5 times daily as directed Lancets lancets Test blood sugar(s) 2 times daily. Dx: Type 2 DM - Uncontrolled E11.65 Insulin: Yes lisinopril (ZESTRIL) 10 mg tablet Take 1 tablet by mouth once daily. metFORMIN (GLUCOPHAGE) 1,000 mg tablet Take 1 tablet by mouth twice daily with meals. multivitamin tablet Take 1 tablet by mouth once daily. rosuvastatin (CRESTOR) 5 mg tablet Take 1 tablet by mouth daily at bedtime. triamcinolone acetonide (KENALOG) 0.1 % cream Apply 1 application to affected area three times daily. Apply sparingly to area for rash/itching. No current facility-administered medications for this visit. Medications and allergies reviewed by this provider. SOCIAL HISTORY Social History Tobacco Use Smoking status: Former Types: Cigarettes Quit date: 07/21/2005 Years since quittin.7 Smokeless tobacco: Never Tobacco comments: 1 cigarette per month Vaping Use Vaping Use: Never used Substance Use Topics Alcohol use: Yes Comment: occasionally Drug use: No REVIEW OF SYSTEMS All other reviewed and negative other than HPI. OBJECTIVE: BP 136/80 Pulse 74 Resp 18 Wt 121.5 kg (267 lb 12.8 oz) SpO2 94% BMI 43.22 kg/m? . Vital signs reviewed by this provider. APPEARANCE Well appearing, alert, in no acute distress, well-hydrated, well nourished. EYES conjunctiva and sclera normal. HEART RRR with normal S1 and S2, no murmurs, no gallops, no JVD appreciated LUNG clear to auscultation. No wheezes, rhonchi or rales EXTREMITIES Extremities normal, No deformities, No skin discoloration, No edema, and Normal pulses bilaterally. SKIN Skin color, texture, turgor normal, no suspicious rashes or lesions to exposed skin DM foot exam: shoes and socks removed, No deformities, ulcers, calluses, normal distal pulses, and sensitive to 10 gm monofilament Component Latest Ref Rng AND Units 04/28/2023 Protein, Total 6.3 - 8.0 g/dL 7.5 Albumin 3.9 - 4.9 g/dL 4.0 Calcium 8.5 - 10.2 mg/dL 9.4 Bilirubin, Total 0.2 - 1.3 mg/dL 0.7 Alkaline Phosphatase 38 - 113 U/L 93 AST 14 - 40 U/L 28 ALT 10 - 54 U/L 22 Glucose 74 - 99 mg/dL 169 (H) BUN 9 - 24 mg/dL 17 (more content not included)... [facility] 05-02-2023 History of Present illness Narrative 05/02/2023 Patient presents with: F/U 6 Month SUBJECTIVE: This is a 48 year old that is here today for Above Complaints. Since last office visithas been in good health without ER visits or hospitalizations. No concerns today DIABETES MELLITUS: Since his last visit he denies excessive thirst or increased frequency of urination, chest pain or dyspnea , numbness, tingling or pain in extremities, new or unusual visual symptoms, low sugar/hypoglycemic reactions, weight loss/gain, lightheadedness/dizziness, and bowel changes/loose stools.Follows a diabetic diet most of the time. He is compliant with medication(s) and is tolerating med(s) without any side effects. He reports checking his glucose on a twice a day schedule with sugars in the <150 range. Patient's last HgA1C was Hemoglobin A1C (%) Date Value 04/28/2023 6.8 01/23/2023 7.2 04/06/2021 6.8 01/04/2021 6.4 ) Last Ophthalmology exam was within the past 12 months PAST MEDICAL HISTORY Diagnosis Date Diabetic nephropathy ([facility]) History of tobacco use HIV positive ([facility]) Dr. Mccann Hyperlipidemia Hypertension Morbid obesity with BMI of 40.0-44.9, adult (HCC) Type II or unspecified type diabetes mellitus without mention of complication, not stated as uncontrolled ALLERGIES Lipitor [Atorvastatin Calcium] MEDICATIONS Current Outpatient Medications Medication Sig aspirin, enteric coated (ASPIRIN, ENTERIC COATED) 81 mg EC tablet Take 81 mg by mouth once daily. benzonatate (TESSALON PERLES) 100 mg capsule Take 1 capsule by mouth three times daily as needed for cough. BIKTARVY 50-200-25 mg per tablet Take 1 tablet by mouth daily at bedtime. blood sugar diagnostic (ONETOUCH VERIO TEST STRIPS) test strip Use to test blood sugars up to twice daily as instructed. Blood-Glucose Meter (ONETOUCH VERIO IQ METER) [facility] Use to check blood sugar up to twice daily as directed. Blood-Glucose Sensor ([employer] G6 SENSOR) holley Check blood sugars four times a day and as needed. Change device weekly empagliflozin (JARDIANCE) 25 mg tablet Take 1 tablet by mouth once daily. Take 1 tablet once daily in the morning flash glucose sensor (FREESTYLE ERLIN 2 SENSOR) kit Take blood sugar three times a day and as needed. Change device weekly insulin aspart U-100 (NOVOLOG FLEXPEN U-100 INSULIN) 100 unit/mL (3 mL) Inject 12 Units subcutaneously three times daily before meals. insulin detemir U-100 (LEVEMIR FLEXPEN) 100 unit/mL (3 mL) injection pen Inject 50 Units subcutaneously twice daily. Insulin [place], Disposable, (BD ULTRAFINE III MINI PEN) 31 gauge x 3/16 Use to inject insulin 5 times daily as directed Lancets lancets Test blood sugar(s) 2 times daily. Dx: Type 2 DM - Uncontrolled E11.65 Insulin: Yes lisinopril (ZESTRIL) 10 mg tablet Take 1 tablet by mouth once daily. metFORMIN (GLUCOPHAGE) 1,000 mg tablet Take 1 tablet by mouth twice daily with meals. multivitamin tablet Take 1 tablet by mouth once daily. rosuvastatin (CRESTOR) 5 mg tablet Take 1 tablet by mouth daily at bedtime. triamcinolone acetonide (KENALOG) 0.1 % cream Apply 1 application to affected area three times daily. Apply sparingly to area for rash/itching. No current facility-administered medications for this visit. Medications and allergies reviewed by this provider. SOCIAL HISTORY Social History Tobacco Use Smoking status: Former Types: Cigarettes Quit date: 07/21/2005 Years since quittin.7 Smokeless tobacco: Never Tobacco comments: 1 cigarette per month Vaping Use Vaping Use: Never used Substance Use Topics Alcohol use: Yes Comment: occasionally Drug use: No REVIEW OF SYSTEMS All other reviewed and negative other than HPI. OBJECTIVE: BP 136/80 Pulse 74 Resp 18 Wt 121.5 kg (267 lb 12.8 oz) SpO2 94% BMI 43.22 kg/m . Vital signs reviewed by this provider. APPEARANCE Well appearing, alert, in no acute distress, well-hydrated, well nourished. EYES conjunctiva and sclera normal. HEART RRR with normal S1 and S2, no murmurs, no gallops, no JVD appreciated LUNG clear to auscultation. No wheezes, rhonchi or rales EXTREMITIES Extremities normal, No deformities, No skin discoloration, No edema, and Normal pulses bilaterally. SKIN Skin color, texture, turgor normal, no suspicious rashes or lesions to exposed skin DM foot exam: shoes and socks removed, No deformities, ulcers, calluses, normal distal pulses, and sensitive to 10 gm monofilament Component Latest Ref Rng & Units 04/28/2023 Protein, Total 6.3 - 8.0 g/dL 7.5 Albumin 3.9 - 4.9 g/dL 4.0 Calcium 8.5 - 10.2 mg/dL 9.4 Bilirubin, Total 0.2 - 1.3 mg/dL 0.7 Alkaline Phosphatase 38 - 113 U/L 93 AST 14 - 40 U/L 28 ALT 10 - 54 U/L 22 Glucose 74 - 99 mg/dL 169 (H) BUN 9 - 24 mg/dL 17 Creatinine 0.73 - 1.22 mg/dL 0.85 Sodium 136 - 144 mmol/L 137 Potassium 3.7 - 5.1 mmol/L 4.8 Chloride 97 - 105 mmol/L 99 CO2 22 - 30 mmol/L 21 (L) Anion Gap 9 - 18 mmol/L 17 eGFR >=60 mL/min/1.73m 106 Creatinine, Ur Random (UCRR) 20.0 - 300.0 mg/dL 65.3 Albumin, Urine Random mg/L 189.0 Albumin/Creat Ratio <30 mg/g 289 (H) Hemoglobin A1C 4.3 - 5.6 % 6.8 (H) Estimated Average Glucose mg/dL 148 Component Latest Ref Rng & Units 10/04/2022 Total Cholesterol, Nonfasting <200 mg/dL 130 Triglycerides, Nonfasting <150 mg/dL 316 (H) HDL Cholesterol, Nonfasting >39 mg/dL 27 (L) LDL Cholesterol, Nonfasting <100 mg/dL 40 Non HDL Cholesterol, Nonfasting <130 mg/dL 103 VLDL Cholesterol, Nonfasting <30 mg/dL 63 (H) Total Chol/HDL Ratio, Nonfasting <5.10 mg/dL 4.81 LDL/HDL Ratio, Nonfasting <2.54 mg/dL 1.48 Depression Assessment Never done Shingrix Vaccine(1 of 2) Never done Influenza Vaccine(1) due on 03/21/2023 Covid-19 Vaccine( season) due on 03/21/2023 Hepatitis B Vaccine(3 of 3 - Hep B Twinrix 3-dose series) due on 05/01/2023 Hepatitis A Vaccine(3 of 3 - Hep A Twinrix risk 3-dose series) due on 05/01/2023 LDL Cholesterol due on 10/05/2023 HbA1C due on 10/28/2023 Dilated Retinal Exam due on 02/15/2024 Urine Albumin:Creatinine Ratio due on 04/28/2024 Diabetic Foot Exam due on 05/02/2024 Annual PCP Team Chronic Disease Visit due on 05/02/2024 Colorectal Cancer Screening due on 10/16/2024 DTaP,Tdap,Td Vaccine(2 - Td or Tdap) due on 06/29/2030 Hepatitis C Screening Completed HIV Screening Completed Pneumococcal Vaccine Completed ASSESSMENT/PLAN: 1. Diabetes mellitus type 2, insulin dependent (HCC) - ICD9: 250.00, V58.67, ICD10: E11.9, Z79.4 (primary diagnosis) - Improving control - Continue current medications - Statin prescribed - rosuvastatin - Blood glucose monitoring on a four times a day schedule - Counseled on healthy diet and regular exercise - Discussed need for and benefit of weight loss. BMI 43.22 kg/(m^2) - Discussed diabetic education issues of diabetes complications and monitoring required, hypoglycemic/hyperglycemic symptoms, and medication-specific side effects and monitoring - Follow up in 6 months, sooner should any other issues arise. - LISINOPRIL 10 MG TABLET - ROSUVASTATIN 5 MG TABLET 2. Encounter for immunization - ICD9: V03.89, ICD10: Z23 - INFLUENZA VACCINE, AGE 6 MO - 64 YR, QUADRIVALENT (AFLURIA, FLULAVAL, FLUZONE) Armin Giordano APRN.CNP Prescription instructions reviewed with patient as applicable. Patient advised if symptoms do not improve or if symptoms worsen sooner, to contact their primary care physician. Potential red flag symptoms discussed with the patient. Reviewed appropriate action plan to take if red flag symptoms occur. Patient agreeable to treatment plan. I spent a total of 25 minutes on the date of the service which included preparing to see the patient, [id number] patient care, completing clinical documentation, obtaining and/or reviewing separately obtained history, performing a medically appropriate examination, counseling and educating the patient/family/caregiver, and ordering medications, tests, or procedures. documented in this encounter [facility] 04-10-2023 Miscellaneous Notes Patient has been identified by name and date of : Yes Patient phones for refill(s): Requested Prescriptions Pending Prescriptions Disp Refills insulin detemir U-100 (LEVEMIR FLEXPEN) 100 unit/mL (3 mL) injection pen 90 mL 1 Sig: Inject 50 Units subcutaneously twice daily. Date of last office visit in primary care: 02/13/2023 Please advise. Thank you. Valerie Martel LPN documented in this encounter [facility] 03-19-2023 Note HNO ID: [id number] Author: Dania Penny RDMS Service: ? Author Type: Environmental Research Scientist Type: Progress Notes Filed: 03/19/2023 2:59 PM Note Text: Radiology Service Progress Note PATIENT NAME: Tonia Valdez DATE OF SERVICE: March 19, 2023 TIME: 2:58 PM PATIENT IDENTITY VERIFICATION COMPLETED USING TWO (2) IDENTIFIERS: Name and Date of confirmed by patient verbally. FALL SCREENING: Has the patient had 2 falls in the last year or 1 fall with injury or currently using an Ambulatory Assistive Device (Walker, Cane, Wheelchair, Crutches, etc.)? No PATIENT GENDER DATA: Male PATIENT RELEVANT IMPLANT DATA REVIEWED: Not Applicable RADIOLOGY DEPARTMENT: Ultrasound PERIPHERAL IV DATA: Not applicable SIGNED BY: Dania Penny RDMS RVT March 19, 2023 2:58 PM [facility] 02-28-2023 Note HNO ID: [id number] Author: Jazmyn Alexander APRN.CNP Service: ? Author Type: Nurse Practitioner Type: Progress Notes Filed: 02/28/2023 6:07 PM Note Text: Subjective The history is provided by the patient. No pizza hut assistant was used. HPI Tonia Valdez is a 48 year old male who presents today for CC of rash/bites on left elbow area. It is itching, this started in past 24 hours. He has not used any medication or treatment. BP 126/74 Pulse 80 Temp 36.9 ?C (98.4 ?F) Resp 18 Wt 122 kg (269 lb) SpO2 95% BMI 43.42 kg/m? Social History Tobacco Use Smoking status: Former Types: Cigarettes Quit date: 07/21/2005 Years since quittin.6 Smokeless tobacco: Never Tobacco comments: 1 cigarette per month Vaping Use Vaping Use: Never used Substance Use Topics Alcohol use: Yes Comment: occasionally Drug use: No PAST MEDICAL HISTORY Diagnosis Date Diabetic nephropathy ([facility]) History of tobacco use HIV positive ([facility]) Dr. Mccann Hyperlipidemia Hypertension Morbid obesity with BMI of 40.0-44.9, adult ([facility]) Type II or unspecified type diabetes mellitus without mention of complication, not stated as uncontrolled I have confirmed and edited as necessary, the [facility] Review of Systems Constitutional: Negative for chills and fever. Musculoskeletal: Negative for joint pain and myalgias. Skin: Positive for rash. Negative for itching. All other systems reviewed and are negative. Objective Physical Exam Vitals and nursing note reviewed. Pulmonary: Effort: Pulmonary effort is normal. Skin: General: Skin is warm and dry. Findings: Erythema and rash present. Rash is papular. Neurological: Mental Status: He is alert and oriented to person, place, and time. Psychiatric: Mood and Affect: Affect normal. ASSESSMENT/PLAN: 1. Insect bite of right elbow, initial encounter - ICD9: 913.4, E906.4, ICD10: S50.361A, W57.XXXA Appears to be 3 insect bite, inflammatory reaction Triamcinolone cream as ordered Zyrtec/benadryl as discussed Monitor for signs of infection Follow up with PCP prn Diagnosis and treatment plan were discussed and questions were answered to the patient's satisfaction. Pt acknowledged understanding of concepts and follow up plan. Specific signs and symptoms that would indicate the need for higher level of care were discussed in detail warranting prompt ER evaluation. Jazmyn Alexander APRN.MAYRA [facility] 02-28-2023 Instructions Jazmyn Alexander APRN.MAYRA - 02/28/2023 4:22 PM EDT Hydrocortisone ointment to affected sites if triamcinolone is too expensive Keep area clean and dry Watch for signs of infection which are redness, swelling and pus like drainage Cool compress to sting site as needed Benadryl 25 mg at bedtime Zyrtec 10 mg By mouth daily documented in this encounter [facility] 02-28-2023 History of Present illness Narrative Subjective The history is provided by the patient. No pizza hut assistant was used. HPI Tonia Valdez is a 48 year old male who presents today for CC of rash/bites on left elbow area. It is itching, this started in past 24 hours. He has not used any medication or treatment. BP 126/74 Pulse 80 Temp 36.9 C (98.4 F) Resp 18 Wt 122 kg (269 lb) SpO2 95% BMI 43.42 kg/m Social History Tobacco Use Smoking status: Former Types: Cigarettes Quit date: 07/21/2005 Years since quittin.6 Smokeless tobacco: Never Tobacco comments: 1 cigarette per month Vaping Use Vaping Use: Never used Substance Use Topics Alcohol use: Yes Comment: occasionally Drug use: No PAST MEDICAL HISTORY Diagnosis Date Diabetic nephropathy (HCC) History of tobacco use HIV positive ([facility]) Dr. Mccann Hyperlipidemia Hypertension Morbid obesity with BMI of 40.0-44.9, adult ([facility]) Type II or unspecified type diabetes mellitus without mention of complication, not stated as uncontrolled I have confirmed and edited as necessary, the [facility] Review of Systems Constitutional: Negative for chills and fever. Musculoskeletal: Negative for joint pain and myalgias. Skin: Positive for rash. Negative for itching. All other systems reviewed and are negative. Objective Physical Exam Vitals and nursing note reviewed. Pulmonary: Effort: Pulmonary effort is normal. Skin: General: Skin is warm and dry. Findings: Erythema and rash present. Rash is papular. Neurological: Mental Status: He is alert and oriented to person, place, and time. Psychiatric: Mood and Affect: Affect normal. ASSESSMENT/PLAN: 1. Insect bite of right elbow, initial encounter - ICD9: 913.4, E906.4, ICD10: S50.361A, W57.XXXA Appears to be 3 insect bite, inflammatory reaction Triamcinolone cream as ordered Zyrtec/benadryl as discussed Monitor for signs of infection Follow up with PCP prn Diagnosis and treatment plan were discussed and questions were answered to the patient's satisfaction. Pt acknowledged understanding of concepts and follow up plan. Specific signs and symptoms that would indicate the need for higher level of care were discussed in detail warranting prompt ER evaluation. Jazmyn Alexander APRN.MAYRA documented in this encounter [facility] 02-20-2023 Note HNO ID: [id number] Author: Ree West MD Service: ? Author Type: Physician Type: Progress Notes Filed: 03/25/2023 8:55 AM Note Text: Ree West MD Department of Orthopaedics Orthopaedics [address] [facility] [address] Dept: [phone] Dept February 20, 2023 CHIEF COMPLAINT: Established Patient and Post Op of the Left Hand. HPI Patient here today for 7 weeks post op left middle and ring trigger finger releases. He reports no pain. ASSESSMENT: M65.341 Trigger ring finger of right hand (primary encounter diagnosis) SUMMARY/PLAN: 7 weeks status post left middle and ring fingers. He is doing well. He would like a cortisone injection for the right ring assessment giving him some issues. Exam: Incisions on the left. Tender to palpation on the right ring finger. Additional Injections: R ring A1 for trigger finger Informed Consent Consent Obtained: Verbal [place] Protocol A moment to CARE was completed. SIGN IN Personnel directly involved with the procedure wore the appropriate PPE. Special Equipment: N/A Patient/Surrogate Stated/Verified: Patient name, Date of , Relevant allergies and Intended procedure TIME OUT Intended patient and procedure match the source document(s). Consent documented and matches the intended procedure. Relevant labs, photos, and/or imaging studies have been reviewed. Correct side/site marked and visible. Medications required for procedure verified. No fire risk assessment and interventions applicable. No implant(s) inserted. 02/20/2023 4:30 PM The procedure site was prepped in the usual sterile fashion. Medications: 3 mg betamethasone acetate-betamethasone sodium phosphate 6 mg/mL Anesthetics: 0.5 mL lidocaine (PF) 10 mg/mL (1 %) Outcome: tolerated well, no immediate complications Post-injection instructions were reviewed with the patient and the patient voiced understanding of these instructions. SIGN OUT All instruments, equipment, possible retained foreign bodies accounted for. Supporting Information Below: Medications: Current Outpatient Medications Medication Sig insulin aspart U-100 (NOVOLOG FLEXPEN U-100 INSULIN) 100 unit/mL (3 mL) Inject 12 Units subcutaneously three times daily before meals. metFORMIN (GLUCOPHAGE) 1,000 mg tablet Take 1 tablet by mouth twice daily with meals. empagliflozin (JARDIANCE) 25 mg tablet Take 1 tablet by mouth once daily. Take 1 tablet once daily in the morning lisinopril (ZESTRIL) 10 mg tablet Take 1 tablet by mouth once daily. insulin detemir U-100 (LEVEMIR FLEXPEN) 100 unit/mL (3 mL) injection pen Inject 50 Units subcutaneously twice daily. rosuvastatin (CRESTOR) 5 mg tablet Take 1 tablet by mouth daily at bedtime. aspirin, enteric coated (ASPIRIN, ENTERIC COATED) 81 mg EC tablet Take 81 mg by mouth once daily. BIKTARVY 50-200-25 mg per tablet Take 1 tablet by mouth daily at bedtime. multivitamin tablet Take 1 tablet by mouth once daily. flash glucose sensor (FREESTYLE ERLIN 2 SENSOR) kit Take blood sugar three times a day and as needed. Change device weekly Blood-Glucose Sensor ([employer] G6 SENSOR) holley Check blood sugars four times a day and as needed. Change device weekly benzonatate (TESSALON PERLES) 100 mg capsule Take 1 capsule by mouth three times daily as needed for cough. Insulin [place], Disposable, (BD ULTRAFINE III MINI PEN) 31 gauge x 3/16 Use to inject insulin 5 times daily as directed blood sugar diagnostic (ONETOUCH VERIO TEST STRIPS) test strip Use to test blood sugars up to twice daily as instructed. Blood-Glucose Meter (ONETOUCH VERIO IQ METER) [facility] Use to check blood sugar up to twice daily as directed. Lancets lancets Test blood sugar(s) 2 times daily. Dx: Type 2 DM - Uncontrolled E11.65 Insulin: Yes No current facility-administered medications for this visit. Allergies: Lipitor [Atorvastatin Calcium] Ree West MD [facility] 02-20-2023 History of Present illness Narrative Associated Order(s): Additional Injections: R ring A1 Post-Procedure Diagnose(s): Trigger ring finger of right hand Ree West MD Department of Orthopaedics Orthopaedics [address] [place] [address] Dept: [phone] Dept February 20, 2023 CHIEF COMPLAINT: Established Patient and Post Op of the Left Hand. HPI Patient here today for 7 weeks post op left middle and ring trigger finger releases. He reports no pain. ASSESSMENT: M65.341 Trigger ring finger of right hand (primary encounter diagnosis) SUMMARY/PLAN: 7 weeks status post left middle and ring fingers. He is doing well. He would like a cortisone injection for the right ring assessment giving him some issues. Exam: Incisions on the left. Tender to palpation on the right ring finger. Additional Injections: R ring A1 for trigger finger Informed Consent Consent Obtained: Verbal [place] Protocol A moment to CARE was completed. SIGN IN Personnel directly involved with the procedure wore the appropriate PPE. Special Equipment: N/A Patient/Surrogate Stated/Verified: Patient name, Date of , Relevant allergies and Intended procedure TIME OUT Intended patient and procedure match the source document(s). Consent documented and matches the intended procedure. Relevant labs, photos, and/or imaging studies have been reviewed. Correct side/site marked and visible. Medications required for procedure verified. No fire risk assessment and interventions applicable. No implant(s) inserted. 02/20/2023 4:30 PM The procedure site was prepped in the usual sterile fashion. Medications: 3 mg betamethasone acetate-betamethasone sodium phosphate 6 mg/mL Anesthetics: 0.5 mL lidocaine (PF) 10 mg/mL (1 %) Outcome: tolerated well, no immediate complications Post-injection instructions were reviewed with the patient and the patient voiced understanding of these instructions. SIGN OUT All instruments, equipment, possible retained foreign bodies accounted for. Supporting Information Below: Medications: Current Outpatient Medications Medication Sig insulin aspart U-100 (NOVOLOG FLEXPEN U-100 INSULIN) 100 unit/mL (3 mL) Inject 12 Units subcutaneously three times daily before meals. metFORMIN (GLUCOPHAGE) 1,000 mg tablet Take 1 tablet by mouth twice daily with meals. empagliflozin (JARDIANCE) 25 mg tablet Take 1 tablet by mouth once daily. Take 1 tablet once daily in the morning lisinopril (ZESTRIL) 10 mg tablet Take 1 tablet by mouth once daily. insulin detemir U-100 (LEVEMIR FLEXPEN) 100 unit/mL (3 mL) injection pen Inject 50 Units subcutaneously twice daily. rosuvastatin (CRESTOR) 5 mg tablet Take 1 tablet by mouth daily at bedtime. aspirin, enteric coated (ASPIRIN, ENTERIC COATED) 81 mg EC tablet Take 81 mg by mouth once daily. BIKTARVY 50-200-25 mg per tablet Take 1 tablet by mouth daily at bedtime. multivitamin tablet Take 1 tablet by mouth once daily. flash glucose sensor (FREESTYLE ERLIN 2 SENSOR) kit Take blood sugar three times a day and as needed. Change device weekly Blood-Glucose Sensor (DEXCOM G6 SENSOR) holley Check blood sugars four times a day and as needed. Change device weekly benzonatate (TESSALON PERLES) 100 mg capsule Take 1 capsule by mouth three times daily as needed for cough. Insulin [place], Disposable, (BD ULTRAFINE III MINI PEN) 31 gauge x 3/16 Use to inject insulin 5 times daily as directed blood sugar diagnostic (ONETOUCH VERIO TEST STRIPS) test strip Use to test blood sugars up to twice daily as instructed. Blood-Glucose Meter (ONETOUCH VERIO IQ METER) misc Use to check blood sugar up to twice daily as directed. Lancets lancets Test blood sugar(s) 2 times daily. Dx: Type 2 DM - Uncontrolled E11.65 Insulin: Yes No current facility-administered medications for this visit. Allergies: Lipitor [Atorvastatin Calcium] Ree West MD documented in this encounter [facility] 02-14-2023 Note HNO ID: [id number] Author: Lida Mohr OD Service: ? Author Type: [employer]ICAL [employer] OFFICER Type: Progress Notes Filed: 02/14/2023 10:48 AM Note Text: 1. Type 2 diabetes mellitus with both eyes affected by mild nonproliferative retinopathy without macular edema, with long-term current use of insulin (HCC) Risk of diabetic changes and vision loss can be minimized by tight control of blood sugar, blood pressure, and cholesterol levels. Educated patient to continue care with primary care doctor and/or daycare director to maintain optimum levels as they are important to avoid ocular complications. Encouraged patient to call the office immediately with any changes to vision or visual concerns. Advised to not wait until the next scheduled exam. 2. Presbyopia Okay to use OTC readers (+1.50) Follow-up in 1 year for diabetic eye exam or sooner as needed Lida Mohr, OD February 14, 2023 10:47 AM [facility] 02-14-2023 History of Present illness Narrative 1. Type 2 diabetes mellitus with both eyes affected by mild nonproliferative retinopathy without macular edema, with long-term current use of insulin (HCC) Risk of diabetic changes and vision loss can be minimized by tight control of blood sugar, blood pressure, and cholesterol levels. Educated patient to continue care with primary care doctor and/or daycare director to maintain optimum levels as they are important to avoid ocular complications. Encouraged patient to call the office immediately with any changes to vision or visual concerns. Advised to not wait until the next scheduled exam. 2. Presbyopia Okay to use OTC readers (+1.50) Follow-up in 1 year for diabetic eye exam or sooner as needed Lida Mohr, OD February 14, 2023 10:47 AM documented in this encounter [facility] 02-13-2023 Note HNO ID: [id number] Author: Saeed Perez MD Service: ? Author Type: Physician Type: Progress Notes Filed: 02/13/2023 10:37 AM Note Text: Chief Complaint Patient presents with: Follow Up: DM HPI Tonia Valdez is a 48 year old male who presents here today for Above Complaints.. DIABETES MELLITUS: Mr. Valdez was last seen 3 months ago. Since our last visit he denies excessive thirst or increased frequency of urination, numbness, tingling or pain in extremities, new or unusual visual symptoms, and low sugar/hypoglycemic reactions. Follows a diabetic diet some of the time. Eating high carb meal for breakfast and is snacking before lunch at work. He is compliant with medication(s) and is tolerating med(s) without any side effects. He reports checking his glucose on a four times a day schedule with sugars in the fasting <130 range. Has been getting higher readings before lunch around 11am with some readings in the 180's. Similar readings before dinner. Patient's last HgA1C was Hemoglobin A1C (%) Date Value 01/23/2023 7.2 10/04/2022 7.0 04/06/2021 6.8 01/04/2021 6.4 ) Last Ophthalmology exam was more than 12 months ago. Last Podiatry exam was within the past 12 months Also notes new lump on left chest/breast for the last 6 weeks. Non tender. Has not changed in size. No other lesions. Past medical history, appointments, medications, allergies reviewed. Previous Medical History PAST MEDICAL HISTORY Diagnosis Date Diabetic nephropathy (HCC) History of tobacco use HIV positive ([facility]) Dr. Mccann Hyperlipidemia Hypertension Morbid obesity with BMI of 40.0-44.9, adult ([facility]) Type II or unspecified type diabetes mellitus without mention of complication, not stated as uncontrolled Previous Surgical History PAST SURGICAL HISTORY Procedure Laterality Date COLONOSCOPY 10/16/2021 repeat in 3 years EYE SURGERY HX as a child NONE PAST SURGICAL HISTORY OF Left 01/02/2023 middle and ring finger trigger releases Family History FAMILY HISTORY Problem Relation Age of Onset Hypertension Maternal Grandmother Diabetes Maternal Grandmother Hypertension Maternal Grandfather Diabetes Maternal Grandfather Diabetes Mother Prostate Cancer Father Heart disease Brother No Known Problems Paternal Grandmother No Known Problems Paternal Grandfather No Ocular Disease No Family History Patient Allergies ALLERGIES Allergen Reactions Lipitor [Atorvastat* Other: See Comments Tingling in legs Current Medications Current Outpatient Medications on File Prior to Visit Medication Sig metFORMIN (GLUCOPHAGE) 1,000 mg tablet Take 1 tablet by mouth twice daily with meals. empagliflozin (JARDIANCE) 25 mg tablet Take 1 tablet by mouth once daily. Take 1 tablet once daily in the morning insulin aspart U-100 (NOVOLOG FLEXPEN U-100 INSULIN) 100 unit/mL (3 mL) Inject 10 Units subcutaneously three times daily before meals. lisinopril (ZESTRIL) 10 mg tablet Take 1 tablet by mouth once daily. insulin detemir U-100 (LEVEMIR FLEXPEN) 100 unit/mL (3 mL) injection pen Inject 50 Units subcutaneously twice daily. rosuvastatin (CRESTOR) 5 mg tablet Take 1 tablet by mouth daily at bedtime. aspirin, enteric coated (ASPIRIN, ENTERIC COATED) 81 mg EC tablet Take 81 mg by mouth once daily. BIKTARVY 50-200-25 mg per tablet Take 1 tablet by mouth daily at bedtime. multivitamin tablet Take 1 tablet by mouth once daily. flash glucose sensor (FREESTYLE ERLIN 2 SENSOR) kit Take blood sugar three times a day and as needed. Change device weekly Blood-Glucose Sensor (DEXCOM G6 SENSOR) holley Check blood sugars four times a day and as needed. Change device weekly benzonatate (TESSALON PERLES) 100 mg capsule Take 1 capsule by mouth three times daily as needed for cough. Insulin [place], Disposable, (BD ULTRAFINE III MINI PEN) 31 gauge x 3/16 Use to inject insulin 5 times daily as directed blood sugar diagnostic (ONETOUCH VERIO TEST STRIPS) test strip Use to test blood sugars up to twice daily as instructed. Blood-Glucose Meter (Visual UnityTOUCH VERIO IQ METER) misc Use to check blood sugar up to twice daily as directed. Lancets lancets Test blood sugar(s) 2 times daily. Dx: Type 2 DM - Uncontrolled E11.65 Insulin: Yes No current facility-administered medications on file prior to visit. Social History Social History Tobacco Use Smoking status: Former Types: Cigarettes Quit date: 07/21/2005 Years since quittin.5 Smokeless tobacco: Never Tobacco comments: 1 cigarette per month Vaping Use Vaping Use: Never used Substance Use Topics Alcohol use: Yes Comment: occasionally Drug use: No Review of Symptoms REVIEW OF SYSTEMS See HPI EXAM: BP 110/72 Pulse 80 Resp 16 Wt 120.4 kg (265 lb 6.4 oz) SpO2 98% BMI 42.84 kg/m? General Appearance: Well appearing, alert, in no acute distress, well-hydrated, well nourished.. Skin: Skin color, (more content not included)... [facility] 02-13-2023 History of Present illness Narrative Chief Complaint Patient presents with: Follow Up: DM HPI Tonia Valdez is a 48 year old male who presents here today for Above Complaints.. DIABETES MELLITUS: Mr. Valdez was last seen 3 months ago. Since our last visit he denies excessive thirst or increased frequency of urination, numbness, tingling or pain in extremities, new or unusual visual symptoms, and low sugar/hypoglycemic reactions. Follows a diabetic diet some of the time. Eating high carb meal for breakfast and is snacking before lunch at work. He is compliant with medication(s) and is tolerating med(s) without any side effects. He reports checking his glucose on a four times a day schedule with sugars in the fasting <130 range. Has been getting higher readings before lunch around 11am with some readings in the 180's. Similar readings before dinner. Patient's last HgA1C was Hemoglobin A1C (%) Date Value 01/23/2023 7.2 10/04/2022 7.0 04/06/2021 6.8 01/04/2021 6.4 ) Last Ophthalmology exam was more than 12 months ago. Last Podiatry exam was within the past 12 months Also notes new lump on left chest/breast for the last 6 weeks. Non tender. Has not changed in size. No other lesions. Past medical history, appointments, medications, allergies reviewed. Previous Medical History PAST MEDICAL HISTORY Diagnosis Date Diabetic nephropathy ([facility]) History of tobacco use HIV positive ([facility]) Dr. Mccann Hyperlipidemia Hypertension Morbid obesity with BMI of 40.0-44.9, adult ([facility]) Type II or unspecified type diabetes mellitus without mention of complication, not stated as uncontrolled Previous Surgical History PAST SURGICAL HISTORY Procedure Laterality Date COLONOSCOPY 10/16/2021 repeat in 3 years EYE SURGERY HX as a child NONE PAST SURGICAL HISTORY OF Left 01/02/2023 middle and ring finger trigger releases Family History FAMILY HISTORY Problem Relation Age of Onset Hypertension Maternal Grandmother Diabetes Maternal Grandmother Hypertension Maternal Grandfather Diabetes Maternal Grandfather Diabetes Mother Prostate Cancer Father Heart disease Brother No Known Problems Paternal Grandmother No Known Problems Paternal Grandfather No Ocular Disease No Family History Patient Allergies ALLERGIES Allergen Reactions Lipitor [Atorvastat* Other: See Comments Tingling in legs Current Medications Current Outpatient Medications on File Prior to Visit Medication Sig metFORMIN (GLUCOPHAGE) 1,000 mg tablet Take 1 tablet by mouth twice daily with meals. empagliflozin (JARDIANCE) 25 mg tablet Take 1 tablet by mouth once daily. Take 1 tablet once daily in the morning insulin aspart U-100 (NOVOLOG FLEXPEN U-100 INSULIN) 100 unit/mL (3 mL) Inject 10 Units subcutaneously three times daily before meals. lisinopril (ZESTRIL) 10 mg tablet Take 1 tablet by mouth once daily. insulin detemir U-100 (LEVEMIR FLEXPEN) 100 unit/mL (3 mL) injection pen Inject 50 Units subcutaneously twice daily. rosuvastatin (CRESTOR) 5 mg tablet Take 1 tablet by mouth daily at bedtime. aspirin, enteric coated (ASPIRIN, ENTERIC COATED) 81 mg EC tablet Take 81 mg by mouth once daily. BIKTARVY 50-200-25 mg per tablet Take 1 tablet by mouth daily at bedtime. multivitamin tablet Take 1 tablet by mouth once daily. flash glucose sensor (FREESTYLE ERLIN 2 SENSOR) kit Take blood sugar three times a day and as needed. Change device weekly Blood-Glucose Sensor (DEXCOM G6 SENSOR) holley Check blood sugars four times a day and as needed. Change device weekly benzonatate (TESSALON PERLES) 100 mg capsule Take 1 capsule by mouth three times daily as needed for cough. Insulin [place], Disposable, (BD ULTRAFINE III MINI PEN) 31 gauge x 3/16 Use to inject insulin 5 times daily as directed blood sugar diagnostic (ONETOUCH VERIO TEST STRIPS) test strip Use to test blood sugars up to twice daily as instructed. Blood-Glucose Meter (ONETOUCH VERIO IQ METER) misc Use to check blood sugar up to twice daily as directed. Lancets lancets Test blood sugar(s) 2 times daily. Dx: Type 2 DM - Uncontrolled E11.65 Insulin: Yes No current facility-administered medications on file prior to visit. Social History Social History Tobacco Use Smoking status: Former Types: Cigarettes Quit date: 07/21/2005 Years since quittin.5 Smokeless tobacco: Never Tobacco comments: 1 cigarette per month Vaping Use Vaping Use: Never used Substance Use Topics Alcohol use: Yes Comment: occasionally Drug use: No Review of Symptoms REVIEW OF SYSTEMS See HPI EXAM: BP 110/72 Pulse 80 Resp 16 Wt 120.4 kg (265 lb 6.4 oz) SpO2 98% BMI 42.84 kg/m General Appearance: Well appearing, alert, in no acute distress, well-hydrated, well nourished.. Skin: Skin color, texture, turgor normal, no suspicious rashes or lesions. Lungs: Lungs clear to auscultation. No wheezing, rhonchi, rales.. Heart: RRR without murmur, gallop, or rubs. No ectopy. Abdomen: Normal abdominal exam, Abdomen soft, non-tender. Bowel sounds normal. No masses, organomegaly. Extremities: No deformities, edema, skin discoloration, clubbing or cyanosis. Good capillary refill. . Breast: Negative findings: normal in size and symmetry, normal contour with no evidence of flattening or dimpling, skin normal, nipples everted without rashes or discharge, no axillary or supraclavicular lymphadenopathy and Positive findings: nodule 1-2 cm, smooth, rubbery, mobile, non-tender, well delineated from surrounding tissue in left upper inner quadrant. Health Maintenance List DILATED RETINAL EXAM due on 06/26/2022 DEPRESSION ASSESSMENT Never done URINE ALBUMIN:CREATININE RATIO due on 01/04/2023 SHINGRIX VACCINE(1 of 2) Never done INFLUENZA(1) due on 03/21/2023 DIABETIC FOOT EXAM due on 04/12/2023 HEPATITIS B(3 of 3 - Hep B Twinrix 3-dose series) due on 05/01/2023 HEPATITIS A(3 of 3 - Hep A Twinrix risk 3-dose series) due on 05/01/2023 HBA1C due on 07/26/2023 LDL CHOLESTEROL due on 10/05/2023 ANNUAL PCP TEAM CHRONIC DISEASE VISIT due on 10/25/2023 COLORECTAL CANCER SCREENING due on 10/16/2024 DTAP,TDAP,TD(2 - Td or Tdap) due on 06/29/2030 HEPATITIS C SCREENING Completed HIV SCREENING Completed COVID-19 VACCINE Completed PNEUMOCOCCAL Completed Data reviewed Component Latest Ref Rng & Units 10/04/2022 01/23/2023 WBC 3.70 - 11.00 k/uL 6.68 RBC 4.20 - 6.00 m/uL 4.77 Hemoglobin 13.0 - 17.0 g/dL 14.9 Hematocrit 39.0 - 51.0 % 44.3 MCV 80.0 - 100.0 fL 92.9 MCH 26.0 - 34.0 pg 31.2 MCHC 30.5 - 36.0 g/dL 33.6 RDW-CV 11.5 - 15.0 % 12.7 Platelet Count 150 - 400 k/uL 310 MPV 9.0 - 12.7 fL 10.1 Neut% % 44.9 Abs Neut (ANC) 1.45 - 7.50 k/uL 2.99 Lymph% % 41.0 Abs Lymph 1.00 - 4.00 k/uL 2.74 [place]% % 9.4 Abs [place] <0.87 k/uL 0.63 Eosin% % 3.9 Abs Eosin <0.46 k/uL 0.26 Baso% % 0.7 Abs Baso <0.11 k/uL 0.05 Immature Gran % % 0.1 IMMATURE GRANS (ABS) <0.10 k/uL <0.03 NRBC /100 WBC 0.0 Absolute nRBC <0.01 k/uL <0.01 DTYPE Auto Protein, Total 6.3 - 8.0 g/dL 7.2 Albumin 3.9 - 4.9 g/dL 3.9 Calcium 8.5 - 10.2 mg/dL 9.3 Bilirubin, Total 0.2 - 1.3 mg/dL 0.8 Alkaline Phosphatase 38 - 113 U/L 93 AST 14 - 40 U/L 15 ALT 10 - 54 U/L 15 Glucose 74 - 99 mg/dL 134 (H) BUN 9 - 24 mg/dL 12 Creatinine 0.73 - 1.22 mg/dL 0.77 Sodium 136 - 144 mmol/L 137 Potassium 3.7 - 5.1 mmol/L 4.1 Chloride 97 - 105 mmol/L 101 CO2 22 - 30 mmol/L 25 Anion Gap 9 - 18 mmol/L 11 eGFR >=60 mL/min/1.73m 110 Total Cholesterol, Nonfasting <200 mg/dL 130 Triglycerides, Nonfasting <150 mg/dL 316 (H) HDL Cholesterol, Nonfasting >39 mg/dL 27 (L) LDL Cholesterol, Nonfasting <100 mg/dL 40 Non HDL Cholesterol, Nonfasting <130 mg/dL 103 VLDL Cholesterol, Nonfasting <30 mg/dL 63 (H) Total Chol/HDL Ratio, Nonfasting <5.10 mg/dL 4.81 LDL/HDL Ratio, Nonfasting <2.54 mg/dL 1.48 Hemoglobin A1C 4.3 - 5.6 % 7.0 (H) 7.2 (H) Estimated Average Glucose mg/dL 154 160 ASSESSMENT/PLAN: 1. Type 2 diabetes mellitus without complication, with long-term current use of insulin (HCC) - ICD9: 250.00, V58.67, ICD10: E11.9, Z79.4 (primary diagnosis) - Worsening control - Increase novolog from 10 units to 12 units TID - Blood glucose monitoring on a four times daily schedule - Counseled on healthy diet and regular exercise - Discussed diabetic education issues of diabetes complications and monitoring required, hypoglycemic/hyperglycemic symptoms, medication-specific side effects and monitoring, and diabetic sick day rules - Follow up in 3 months, sooner should any other issues arise. - CONSULT TO OPHTHALMOLOGY - [facility] LEFT - US BREAST LTD LEFT 2. Mass of upper inner quadrant of left breast - ICD9: 611.72, ICD10: N63.22 Obtain mammogram and US for further workup. - [facility] LEFT - US BREAST LTD LEFT Saeed Perez MD documented in this encounter [facility] 02-04-2023 Miscellaneous Notes The following approved medication requests have been transmitted electronically. Requested Prescriptions Pending Prescriptions Disp Refills metFORMIN (GLUCOPHAGE) 1,000 mg tablet 180 tablet 1 Sig: Take 1 tablet by mouth twice daily with meals. Jose De Jesus Ibarra APRN.COLLECTIONS ATTORNEY Patient has been identified by name and date of : Yes Patient phones for refill(s): Requested Prescriptions Pending Prescriptions Disp Refills metFORMIN (GLUCOPHAGE) 1,000 mg tablet 180 tablet 1 Sig: Take 1 tablet by mouth twice daily with meals. Date of last office visit in primary care: 10/24/2022 Next appointment scheduled 02/13/2023 Please advise. Thank you. Valerie Martel LPN documented in this encounter [facility] 01-13-2023 Note HNO ID: [id number] Author: Viola Presley PA-C Service: ? Author Type: Physician Monorail Crane Operator Type: Progress Notes Filed: 01/13/2023 3:28 PM Note Text: Viola Presley PA-C Department of Orthopaedics Orthopaedics [address] [facility] [address] Dept: [phone] Dept January 13, 2023 CHIEF COMPLAINT: Established Patient and Post Op of the Left Hand and 1 week 4 days post op middle and ring trigger finger release. ASSESSMENT: M65.342 Trigger ring finger of left hand (primary encounter diagnosis) T81.41XA Postoperative stitch abscess M65.332 Trigger middle finger of left hand SUMMARY/PLAN: Patient presents 1 week and 4 days status post left middle and ring trigger finger releases. He was doing very well until he returned to work. 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 He started having a bit more pain and redness since starting work. There is some purulent drainage at the right middle digit and incision site, we will get him on an oral antibiotic. He is provided with a letter for work, hand needs to be kept clean and dry, no gloves for the next week. He will contact us to let us know if things are improving. Exam: Incision sites are slightly erythematous, the incision site at the middle digit has some purulent drainage once sutures are removed, no drainage noted at the incision site of the ring digit. Patient is able to form a loose composite fist and extend all digits with no locking or catching, there is some subjective stiffness in the hand. Imaging: Deferred today. MrAbbie Valdez was advised as to contrast therapies and/or to take analgesics/anti-inflammatories as needed and all contraindications were reviewed. Supporting Information Below: Medications: Current Outpatient Medications Medication Sig empagliflozin (JARDIANCE) 25 mg tablet Take 1 tablet by mouth once daily. Take 1 tablet once daily in the morning insulin aspart U-100 (NOVOLOG FLEXPEN U-100 INSULIN) 100 unit/mL (3 mL) Inject 10 Units subcutaneously three times daily before meals. lisinopril (ZESTRIL) 10 mg tablet Take 1 tablet by mouth once daily. insulin detemir U-100 (LEVEMIR FLEXPEN) 100 unit/mL (3 mL) injection pen Inject 50 Units subcutaneously twice daily. metFORMIN (GLUCOPHAGE) 1,000 mg tablet Take 1 tablet by mouth twice daily with meals. Insulin [place], Disposable, (BD ULTRAFINE III MINI PEN) 31 gauge x 3/16 Use to inject insulin 5 times daily as directed rosuvastatin (CRESTOR) 5 mg tablet Take 1 tablet by mouth daily at bedtime. blood sugar diagnostic (ONETOUCH VERIO TEST STRIPS) test strip Use to test blood sugars up to twice daily as instructed. aspirin, enteric coated (ASPIRIN, ENTERIC COATED) 81 mg EC tablet Take 81 mg by mouth once daily. BIKTARVY 50-200-25 mg per tablet Take 1 tablet by mouth daily at bedtime. Blood-Glucose Meter (ONETOUCH VERIO IQ METER) [facility] Use to check blood sugar up to twice daily as directed. Lancets lancets Test blood sugar(s) 2 times daily. Dx: Type 2 DM - Uncontrolled E11.65 Insulin: Yes multivitamin tablet Take 1 tablet by mouth once daily. cephALEXin (KEFLEX) 250 mg capsule Take 1 capsule by mouth four times daily for 5 days. benzonatate (TESSALON PERLES) 100 mg capsule Take 1 capsule by mouth three times daily as needed for cough. No current facility-administered medications for this visit. Allergies: Lipitor [Atorvastatin Calcium] This note was partially generated using [employer] voice recognition system, and there may be some incorrect words, spellings, and punctuation that were not noted in checking the note before saving. Viola Presley PA-C [facility] 01-13-2023 Note HNO ID: [id number] Author: Zeinab Moreno RN Service: ? Author Type: Registered Nurse Type: Progress Notes Filed: 01/13/2023 3:28 PM Note Text: Patient presents with: Left Hand - Established Patient, Post Op 1 week 4 days post op middle and ring trigger finger release AMB ROOMING INTAKE FLOWSHEET DATA Pain Pain Level: 4 Pain Location: Hand-Left Description: Throbbing Duration Amount of Time: 1 Duration Units: Weeks Frequency: Intermittent Intervention/Comfort measure: Medication, Relaxation Pt comes in for post-op visit 1 week 4 days s/p left middle and ring finger trigger finger releases. Pt states intermittent, throbbing pain and takes ibuprofen. Surgical site is open to air with some redness and swelling noted. Pt states it has been hot to the touch at times around the incisions and feels like I have a ring on. [facility] 01-13-2023 History of Present illness Narrative Viola Presley PA-C Department of Orthopaedics Orthopaedics [address] [facility] [address] Dept: [phone] Dept January 13, 2023 CHIEF COMPLAINT: Established Patient and Post Op of the Left Hand and 1 week 4 days post op middle and ring trigger finger release. ASSESSMENT: M65.342 Trigger ring finger of left hand (primary encounter diagnosis) T81.41XA Postoperative stitch abscess M65.332 Trigger middle finger of left hand SUMMARY/PLAN: Patient presents 1 week and 4 days status post left middle and ring trigger finger releases. He was doing very well until he returned to work. 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 He started having a bit more pain and redness since starting work. There is some purulent drainage at the right middle digit and incision site, we will get him on an oral antibiotic. He is provided with a letter for work, hand needs to be kept clean and dry, no gloves for the next week. He will contact us to let us know if things are improving. Exam: Incision sites are slightly erythematous, the incision site at the middle digit has some purulent drainage once sutures are removed, no drainage noted at the incision site of the ring digit. Patient is able to form a loose composite fist and extend all digits with no locking or catching, there is some subjective stiffness in the hand. Imaging: Deferred today. Mr. Tonia Valdez was advised as to contrast therapies and/or to take analgesics/anti-inflammatories as needed and all contraindications were reviewed. Supporting Information Below: Medications: Current Outpatient Medications Medication Sig empagliflozin (JARDIANCE) 25 mg tablet Take 1 tablet by mouth once daily. Take 1 tablet once daily in the morning insulin aspart U-100 (NOVOLOG FLEXPEN U-100 INSULIN) 100 unit/mL (3 mL) Inject 10 Units subcutaneously three times daily before meals. lisinopril (ZESTRIL) 10 mg tablet Take 1 tablet by mouth once daily. insulin detemir U-100 (LEVEMIR FLEXPEN) 100 unit/mL (3 mL) injection pen Inject 50 Units subcutaneously twice daily. metFORMIN (GLUCOPHAGE) 1,000 mg tablet Take 1 tablet by mouth twice daily with meals. Insulin [place], Disposable, (BD ULTRAFINE III MINI PEN) 31 gauge x 3/16 Use to inject insulin 5 times daily as directed rosuvastatin (CRESTOR) 5 mg tablet Take 1 tablet by mouth daily at bedtime. blood sugar diagnostic (ONETOUCH VERIO TEST STRIPS) test strip Use to test blood sugars up to twice daily as instructed. aspirin, enteric coated (ASPIRIN, ENTERIC COATED) 81 mg EC tablet Take 81 mg by mouth once daily. BIKTARVY 50-200-25 mg per tablet Take 1 tablet by mouth daily at bedtime. Blood-Glucose Meter (ONETOUCH VERIO IQ METER) [facility] Use to check blood sugar up to twice daily as directed. Lancets lancets Test blood sugar(s) 2 times daily. Dx: Type 2 DM - Uncontrolled E11.65 Insulin: Yes multivitamin tablet Take 1 tablet by mouth once daily. cephALEXin (KEFLEX) 250 mg capsule Take 1 capsule by mouth four times daily for 5 days. benzonatate (TESSALON PERLES) 100 mg capsule Take 1 capsule by mouth three times daily as needed for cough. No current facility-administered medications for this visit. Allergies: Lipitor [Atorvastatin Calcium] This note was partially generated using [employer] voice recognition system, and there may be some incorrect words, spellings, and punctuation that were not noted in checking the note before saving. Viola Presley PA-C Patient presents with: Left Hand - Established Patient, Post Op 1 week 4 days post op middle and ring trigger finger release AMB ROOMING INTAKE FLOWSHEET DATA Pain Pain Level: 4 Pain Location: Hand-Left Description: Throbbing Duration Amount of Time: 1 Duration Units: Weeks Frequency: Intermittent Intervention/Comfort measure: Medication, Relaxation Pt comes in for post-op visit 1 week 4 days s/p left middle and ring finger trigger finger releases. Pt states intermittent, throbbing pain and takes ibuprofen. Surgical site is open to air with some redness and swelling noted. Pt states it has been hot to the touch at times around the incisions and feels like I have a ring on. documented in this encounter [facility] 01-07-2023 Miscellaneous Notes Last office visit: 10/24/22 F/u scheduled: 04/25/23 Heather Sherman Ma documented in this encounter [facility] 11-29-2022 Note HNO ID: [id number] Author: Marleen Perez LPN Service: ? Author Type: ? Type: Progress Notes Filed: 11/29/2022 10:56 AM Note Text: Patient presents for twinrix vaccine. Denies any problems at this time. Tolerated injection well. Marleen Perez LPN [facility] 11-28-2022 Note HNO ID: [id number] Author: Ree West MD Service: ? Author Type: Physician Type: Progress Notes Filed: 01/02/2023 7:43 AM Note Text: Ree West MD Department of Orthopaedics Orthopaedics [address] [facility] [address] Dept: [phone] Dept November 28, 2022 CHIEF COMPLAINT: New of the Left Middle Finger (Trigger finger) and New of the Left Ring Finger (Trigger finger) HPI Pt here for consult for Left middle and ring trigger fingers. Pt states fingers have been locking up for about 4 months. 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 Pt is R hand dominant. ASSESSMENT: M65.332 Trigger middle finger of left hand M65.342 Trigger ring finger of left hand PLAN: We discussed the risks, benefits, alternatives and potential complications involving both operative and nonoperative treatment. He is interested in trigger releases of both the middle and ring fingers. We will get him scheduled at his convenience and would like to do it under local anesthetic. FOLLOW UP INSTRUCTIONS: As above Mr. Tonia Valdez was advised as to contrast therapies and/or to take analgesics/anti-inflammatories as needed and all contraindications were reviewed. OBJECTIVE: Mr. Tonia Valdez is a pleasant 47 year old in no apparent distress. Gen:There were no vitals taken for this visit. nl development, obese, no deformities ENT: Normocephalic, normal hearing, moist mucosa CV: Pulses:Radial= 2+ and symmetric, capillary refill < 2 secs, no peripheral edema/varicosities Skin: no rash, bruising or lesions. Good turgor. Psych: cooperative and appropriate, alert and oriented x 3, good mood and affect. Musculoskeletal: Tender to palpation at the A1 carlos sites of the left middle and ring digits. Active locking and catching of the digits. Neurovascular exam is intact. Negative Tinel's and negative median nerve compression test at the wrist. IMAGING: Deferred today Supporting Subjective Information Below: Past Medical History: PAST MEDICAL HISTORY Diagnosis Date Diabetic nephropathy ([facility]) History of tobacco use HIV positive ([facility]) Dr. Mccann Hyperlipidemia Hypertension Morbid obesity with BMI of 40.0-44.9, adult ([facility]) Type II or unspecified type diabetes mellitus without mention of complication, not stated as uncontrolled Past Surgical History: PAST SURGICAL HISTORY Procedure Laterality Date COLONOSCOPY 10/16/2021 repeat in 3 years EYE SURGERY HX as a child NONE Family History: FAMILY HISTORY Problem Relation Age of Onset Hypertension Maternal Grandmother Diabetes Maternal Grandmother Hypertension Maternal Grandfather Diabetes Maternal Grandfather Diabetes Mother Prostate Cancer Father Heart disease Brother No Known Problems Paternal Grandmother No Known Problems Paternal Grandfather No Ocular Disease No Family History Social History: Social History Tobacco Use Smoking status: Former Types: Cigarettes Quit date: 07/21/2005 Years since quittin.3 Smokeless tobacco: Never Tobacco comments: 1 cigarette per month Vaping Use Vaping Use: Never used Substance Use Topics Alcohol use: Yes Comment: occasionally Drug use: No Medications: Current Outpatient Medications Medication Sig insulin detemir U-100 (LEVEMIR FLEXPEN) 100 unit/mL (3 mL) injection pen Inject 50 Units subcutaneously twice daily. empagliflozin (JARDIANCE) 25 mg tablet Take 1 tablet by mouth once daily. Take 1 tablet once daily in the morning lisinopril (ZESTRIL, PRINIVIL) 10 mg tablet Take 1 tablet by mouth once daily. metFORMIN (GLUCOPHAGE) 1,000 mg tablet Take 1 tablet by mouth twice daily with meals. Insulin [place], Disposable, (BD ULTRAFINE III MINI PEN) 31 gauge x 3/16 Use to inject insulin 5 times daily as directed rosuvastatin (CRESTOR) 5 mg tablet Take 1 tablet by mouth daily at bedtime. insulin aspart U-100 (NOVOLOG FLEXPEN U-100 INSULIN) 100 unit/mL (3 mL) Inject 10 Units subcutaneously three times daily before meals. blood sugar diagnostic ([employer] TEST STRIPS) test strip Use to test blood sugars up to twice daily as instructed. aspirin, enteric coated (ASPIRIN, ENTERIC COATED) 81 mg EC tablet Take 81 mg by mouth once daily. BIKTARVY 50-200-25 mg per tablet Take 1 tablet by mouth daily at bedtime. Blood-Glucose Meter (ONETOUCH VERIO IQ METER) [facility] Use to check blood sugar up to twice daily as directed. Lancets lancets Test blood sugar(s) 2 times daily. Dx: Type 2 DM - Uncontrolled E11.65 Insulin: Yes multivitamin tablet Take 1 tablet by mouth once daily. benzonatate (TESSALON PERLES) 100 mg capsule Take 1 capsule by mouth three times daily as needed for cough. No current facility-administered medications for this visit. Allergies: Lipitor [Atorvastatin Calcium] ROS: General (negative for fatigue, malaise, weight loss/gain) HEENT (negative for headache, ear (more content not included)... [facility] 11-28-2022 History of Present illness Narrative Ree West MD Department of Orthopaedics Orthopaedics [address] [facility] [address] Dept: [phone] Dept November 28, 2022 CHIEF COMPLAINT: New of the Left Middle Finger (Trigger finger) and New of the Left Ring Finger (Trigger finger) HPI Pt here for consult for Left middle and ring trigger fingers. Pt states fingers have been locking up for about 4 months. 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 Pt is R hand dominant. ASSESSMENT: M65.332 Trigger middle finger of left hand M65.342 Trigger ring finger of left hand PLAN: We discussed the risks, benefits, alternatives and potential complications involving both operative and nonoperative treatment. He is interested in trigger releases of both the middle and ring fingers. We will get him scheduled at his convenience and would like to do it under local anesthetic. FOLLOW UP INSTRUCTIONS: As above Mr. Tonia Valdez was advised as to contrast therapies and/or to take analgesics/anti-inflammatories as needed and all contraindications were reviewed. OBJECTIVE: Mr. Tonia Valdez is a pleasant 47 year old in no apparent distress. Gen:There were no vitals taken for this visit. nl development, obese, no deformities ENT: Normocephalic, normal hearing, moist mucosa CV: Pulses:Radial= 2+ and symmetric, capillary refill < 2 secs, no peripheral edema/varicosities Skin: no rash, bruising or lesions. Good turgor. Psych: cooperative and appropriate, alert and oriented x 3, good mood and affect. Musculoskeletal: Tender to palpation at the A1 carlos sites of the left middle and ring digits. Active locking and catching of the digits. Neurovascular exam is intact. Negative Tinel's and negative median nerve compression test at the wrist. IMAGING: Deferred today Supporting Subjective Information Below: Past Medical History: PAST MEDICAL HISTORY Diagnosis Date Diabetic nephropathy ([facility]) History of tobacco use HIV positive ([facility]) Dr. Mccann Hyperlipidemia Hypertension Morbid obesity with BMI of 40.0-44.9, adult ([facility]) Type II or unspecified type diabetes mellitus without mention of complication, not stated as uncontrolled Past Surgical History: PAST SURGICAL HISTORY Procedure Laterality Date COLONOSCOPY 10/16/2021 repeat in 3 years EYE SURGERY HX as a child NONE Family History: FAMILY HISTORY Problem Relation Age of Onset Hypertension Maternal Grandmother Diabetes Maternal Grandmother Hypertension Maternal Grandfather Diabetes Maternal Grandfather Diabetes Mother Prostate Cancer Father Heart disease Brother No Known Problems Paternal Grandmother No Known Problems Paternal Grandfather No Ocular Disease No Family History Social History: Social History Tobacco Use Smoking status: Former Types: Cigarettes Quit date: 07/21/2005 Years since quittin.3 Smokeless tobacco: Never Tobacco comments: 1 cigarette per month Vaping Use Vaping Use: Never used Substance Use Topics Alcohol use: Yes Comment: occasionally Drug use: No Medications: Current Outpatient Medications Medication Sig insulin detemir U-100 (LEVEMIR FLEXPEN) 100 unit/mL (3 mL) injection pen Inject 50 Units subcutaneously twice daily. empagliflozin (JARDIANCE) 25 mg tablet Take 1 tablet by mouth once daily. Take 1 tablet once daily in the morning lisinopril (ZESTRIL, PRINIVIL) 10 mg tablet Take 1 tablet by mouth once daily. metFORMIN (GLUCOPHAGE) 1,000 mg tablet Take 1 tablet by mouth twice daily with meals. Insulin [place], Disposable, (BD ULTRAFINE III MINI PEN) 31 gauge x 3/16 Use to inject insulin 5 times daily as directed rosuvastatin (CRESTOR) 5 mg tablet Take 1 tablet by mouth daily at bedtime. insulin aspart U-100 (NOVOLOG FLEXPEN U-100 INSULIN) 100 unit/mL (3 mL) Inject 10 Units subcutaneously three times daily before meals. blood sugar diagnostic (Visual UnityTOUCH VERIO TEST STRIPS) test strip Use to test blood sugars up to twice daily as instructed. aspirin, enteric coated (ASPIRIN, ENTERIC COATED) 81 mg EC tablet Take 81 mg by mouth once daily. BIKTARVY 50-200-25 mg per tablet Take 1 tablet by mouth daily at bedtime. Blood-Glucose Meter (Visual UnityTOUCH VERIO IQ METER) [facility] Use to check blood sugar up to twice daily as directed. Lancets lancets Test blood sugar(s) 2 times daily. Dx: Type 2 DM - Uncontrolled E11.65 Insulin: Yes multivitamin tablet Take 1 tablet by mouth once daily. benzonatate (TESSALON PERLES) 100 mg capsule Take 1 capsule by mouth three times daily as needed for cough. No current facility-administered medications for this visit. Allergies: Lipitor [Atorvastatin Calcium] ROS: General (negative for fatigue, malaise, weight loss/gain) HEENT (negative for headache, earache, recent vision changes, sinus pain, sore throat) Respiratory (no recent shortness of breath, hemoptysis) CV (negative for chest tightness, palpitations) Musculoskeletal (see HPI) Psych (no depression, anxiety) REFERRING PHYSICIAN: Consultation requested by Dr. Perez for an opinion regarding trigger finger(s). My final recommendations will be communicated back to the requesting physician by way of shared Medical record or letter to requesting physician via US mail. Saeed Perez [address] [facility] [address] Saeed Perez MD [address] [facility] [id number] Ree West MD documented in this encounter [facility] 10-24-2022 Note HNO ID: [id number] Author: Saeed Perez MD Service: ? Author Type: Physician Type: Progress Notes Filed: 10/27/2022 4:43 PM Note Text: Chief Complaint Patient presents with: Follow Up: DM follow up and patient wanting to get vaccinations he's due for. HPI Tonia Valdez is a 47 year old male who presents here today for Above Complaints. DIABETES MELLITUS: Mr. Valdez was last seen 6 months ago. Since our last visit he denies excessive thirst or increased frequency of urination, numbness, tingling or pain in extremities, new or unusual visual symptoms, and low sugar/hypoglycemic reactions. Follows a diabetic diet most of the time. He is compliant with medication(s) and is tolerating med(s) without any side effects. He reports checking his glucose on a three times a day schedule with sugars in the fasting <130 range. 2 hours after dinner: <180. Before bed <150. Patient's last HgA1C was Hemoglobin A1C (%) Date Value 10/04/2022 7.0 03/22/2022 6.9 04/06/2021 6.8 01/04/2021 6.4 ) Last Ophthalmology exam was more than 12 months ago. Last Podiatry exam was within the past 12 months BP well controlled on current reigmen. Cholesterol in good range on recent labs. Notes trigger finger in left 3rd and 4th fingers for the last 6 months. Gradually worsening. Not treating with anything OTC. Would like referral to discuss injection vs surgery. Reports his last OV with ID went well. HIV levels are low on his current dose of Biktarvy. No change to regimen. Has f/u in 6 months. Requesting Hepatitis A and B vaccinations and Prevnar 20 vaccine today. Past medical history, appointments, medications, allergies reviewed. Previous Medical History PAST MEDICAL HISTORY Diagnosis Date Diabetic nephropathy ([facility]) History of tobacco use HIV positive ([facility]) Dr. Mccann Hyperlipidemia Hypertension Morbid obesity with BMI of 40.0-44.9, adult ([facility]) Type II or unspecified type diabetes mellitus without mention of complication, not stated as uncontrolled Previous Surgical History PAST SURGICAL HISTORY Procedure Laterality Date COLONOSCOPY 10/16/2021 repeat in 3 years EYE SURGERY HX as a child NONE Family History FAMILY HISTORY Problem Relation Age of Onset Hypertension Maternal Grandmother Diabetes Maternal Grandmother Hypertension Maternal Grandfather Diabetes Maternal Grandfather Diabetes Mother Prostate Cancer Father Heart disease Brother No Known Problems Paternal Grandmother No Known Problems Paternal Grandfather No Ocular Disease No Family History Patient Allergies ALLERGIES Allergen Reactions Lipitor [Atorvastat* Other: See Comments Tingling in legs Current Medications Current Outpatient Medications on File Prior to Visit Medication Sig insulin detemir U-100 (LEVEMIR FLEXPEN) 100 unit/mL (3 mL) injection pen Inject 50 Units subcutaneously twice daily. empagliflozin (JARDIANCE) 25 mg tablet Take 1 tablet by mouth once daily. Take 1 tablet once daily in the morning lisinopril (ZESTRIL, PRINIVIL) 10 mg tablet Take 1 tablet by mouth once daily. metFORMIN (GLUCOPHAGE) 1,000 mg tablet Take 1 tablet by mouth twice daily with meals. Insulin [place], Disposable, (BD ULTRAFINE III MINI PEN) 31 gauge x 3/16 Use to inject insulin 5 times daily as directed rosuvastatin (CRESTOR) 5 mg tablet Take 1 tablet by mouth daily at bedtime. insulin aspart U-100 (NOVOLOG FLEXPEN U-100 INSULIN) 100 unit/mL (3 mL) Inject 10 Units subcutaneously three times daily before meals. blood sugar diagnostic (AfoundriaUCH VERIO TEST STRIPS) test strip Use to test blood sugars up to twice daily as instructed. aspirin, enteric coated (ASPIRIN, ENTERIC COATED) 81 mg EC tablet Take 81 mg by mouth once daily. BIKTARVY 50-200-25 mg per tablet Take 1 tablet by mouth daily at bedtime. Blood-Glucose Meter (AfoundriaUCH VERIO IQ METER) [facility] Use to check blood sugar up to twice daily as directed. Lancets lancets Test blood sugar(s) 2 times daily. Dx: Type 2 DM - Uncontrolled E11.65 Insulin: Yes multivitamin tablet Take 1 tablet by mouth once daily. benzonatate (TESSALON PERLES) 100 mg capsule Take 1 capsule by mouth three times daily as needed for cough. No current facility-administered medications on file prior to visit. Social History Social History Tobacco Use Smoking status: Former Types: Cigarettes Quit date: 07/21/2005 Years since quittin.2 Smokeless tobacco: Never Tobacco comments: 1 cigarette per month Vaping Use Vaping Use: Never used Substance Use Topics Alcohol use: Yes Comment: occasionally Drug use: No Review of Symptoms REVIEW OF SYSTEMS GENERAL: No weight loss, malaise or fevers RESPIRATORY: Negative for cough, hemoptysis, wheezing, COPD, dyspnea or shortness of breath CARDIOVASCULAR: Negative for chest pain, leg swelling, hypertension, CHF or palpitations GI: No nausea, vomiting, or diarrhea SKIN: Negati (more content not included)... [facility] 10-24-2022 History of Present illness Narrative Chief Complaint Patient presents with: Follow Up: DM follow up and patient wanting to get vaccinations he's due for. HPI Tonia Valdez is a 47 year old male who presents here today for Above Complaints. DIABETES MELLITUS: Mr. Valdez was last seen 6 months ago. Since our last visit he denies excessive thirst or increased frequency of urination, numbness, tingling or pain in extremities, new or unusual visual symptoms, and low sugar/hypoglycemic reactions. Follows a diabetic diet most of the time. He is compliant with medication(s) and is tolerating med(s) without any side effects. He reports checking his glucose on a three times a day schedule with sugars in the fasting <130 range. 2 hours after dinner: <180. Before bed <150. Patient's last HgA1C was Hemoglobin A1C (%) Date Value 10/04/2022 7.0 03/22/2022 6.9 04/06/2021 6.8 01/04/2021 6.4 ) Last Ophthalmology exam was more than 12 months ago. Last Podiatry exam was within the past 12 months BP well controlled on current reigmen. Cholesterol in good range on recent labs. Notes trigger finger in left 3rd and 4th fingers for the last 6 months. Gradually worsening. Not treating with anything OTC. Would like referral to discuss injection vs surgery. Reports his last OV with ID went well. HIV levels are low on his current dose of Biktarvy. No change to regimen. Has f/u in 6 months. Requesting Hepatitis A and B vaccinations and Prevnar 20 vaccine today. Past medical history, appointments, medications, allergies reviewed. Previous Medical History PAST MEDICAL HISTORY Diagnosis Date Diabetic nephropathy (HCC) History of tobacco use HIV positive ([facility]) Dr. Mccann Hyperlipidemia Hypertension Morbid obesity with BMI of 40.0-44.9, adult ([facility]) Type II or unspecified type diabetes mellitus without mention of complication, not stated as uncontrolled Previous Surgical History PAST SURGICAL HISTORY Procedure Laterality Date COLONOSCOPY 10/16/2021 repeat in 3 years EYE SURGERY HX as a child NONE Family History FAMILY HISTORY Problem Relation Age of Onset Hypertension Maternal Grandmother Diabetes Maternal Grandmother Hypertension Maternal Grandfather Diabetes Maternal Grandfather Diabetes Mother Prostate Cancer Father Heart disease Brother No Known Problems Paternal Grandmother No Known Problems Paternal Grandfather No Ocular Disease No Family History Patient Allergies ALLERGIES Allergen Reactions Lipitor [Atorvastat* Other: See Comments Tingling in legs Current Medications Current Outpatient Medications on File Prior to Visit Medication Sig insulin detemir U-100 (LEVEMIR FLEXPEN) 100 unit/mL (3 mL) injection pen Inject 50 Units subcutaneously twice daily. empagliflozin (JARDIANCE) 25 mg tablet Take 1 tablet by mouth once daily. Take 1 tablet once daily in the morning lisinopril (ZESTRIL, PRINIVIL) 10 mg tablet Take 1 tablet by mouth once daily. metFORMIN (GLUCOPHAGE) 1,000 mg tablet Take 1 tablet by mouth twice daily with meals. Insulin [place], Disposable, (BD ULTRAFINE III MINI PEN) 31 gauge x 3/16 Use to inject insulin 5 times daily as directed rosuvastatin (CRESTOR) 5 mg tablet Take 1 tablet by mouth daily at bedtime. insulin aspart U-100 (NOVOLOG FLEXPEN U-100 INSULIN) 100 unit/mL (3 mL) Inject 10 Units subcutaneously three times daily before meals. blood sugar diagnostic (Visual UnityTOUCH VERIO TEST STRIPS) test strip Use to test blood sugars up to twice daily as instructed. aspirin, enteric coated (ASPIRIN, ENTERIC COATED) 81 mg EC tablet Take 81 mg by mouth once daily. BIKTARVY 50-200-25 mg per tablet Take 1 tablet by mouth daily at bedtime. Blood-Glucose Meter (Visual UnityTOUCH VERIO IQ METER) [facility] Use to check blood sugar up to twice daily as directed. Lancets lancets Test blood sugar(s) 2 times daily. Dx: Type 2 DM - Uncontrolled E11.65 Insulin: Yes multivitamin tablet Take 1 tablet by mouth once daily. benzonatate (TESSALON PERLES) 100 mg capsule Take 1 capsule by mouth three times daily as needed for cough. No current facility-administered medications on file prior to visit. Social History Social History Tobacco Use Smoking status: Former Types: Cigarettes Quit date: 07/21/2005 Years since quittin.2 Smokeless tobacco: Never Tobacco comments: 1 cigarette per month Vaping Use Vaping Use: Never used Substance Use Topics Alcohol use: Yes Comment: occasionally Drug use: No Review of Symptoms REVIEW OF SYSTEMS GENERAL: No weight loss, malaise or fevers RESPIRATORY: Negative for cough, hemoptysis, wheezing, COPD, dyspnea or shortness of breath CARDIOVASCULAR: Negative for chest pain, leg swelling, hypertension, CHF or palpitations GI: No nausea, vomiting, or diarrhea SKIN: Negative for lesions, rash, and itching EXAM: BP 122/66 Pulse 83 Resp 16 Wt 120.5 kg (265 lb 9.6 oz) SpO2 98% BMI 42.87 kg/m General Appearance: Well appearing, alert, in no acute distress, well-hydrated, well nourished.. Skin: Skin color, texture, turgor normal, no suspicious rashes or lesions. Lungs: Lungs clear to auscultation. No wheezing, rhonchi, rales.. Heart: RRR without murmur, gallop, or rubs. No ectopy. Abdomen: Normal abdominal exam, Abdomen soft, non-tender. Bowel sounds normal. No masses, organomegaly. Extremities: No deformities, edema, skin discoloration, clubbing or cyanosis. Good capillary refill. . Musculoskeletal: reproducible trigger finger in left 3rd and 4th finger after making a fist. Health Maintenance List HEPATITIS B(1 of 3 - 3-dose series) Never done HEPATITIS A(1 of 2 - Risk 2-dose series) Never done PNEUMOCOCCAL(2 - PCV) due on 07/13/2013 DILATED RETINAL EXAM due on 06/26/2022 DEPRESSION ASSESSMENT Never done URINE ALBUMIN:CREATININE RATIO due on 01/04/2023 HBA1C due on 04/06/2023 DIABETIC FOOT EXAM due on 04/12/2023 ANNUAL PCP TEAM CHRONIC DISEASE VISIT due on 04/12/2023 LDL CHOLESTEROL due on 10/05/2023 COLORECTAL CANCER SCREENING due on 10/16/2024 DTAP,TDAP,TD(2 - Td or Tdap) due on 06/29/2030 INFLUENZA Completed HEPATITIS C SCREENING Completed HIV SCREENING Completed COVID-19 VACCINE Completed Data reviewed Component Latest Ref Rng & Units 10/04/2022 WBC 3.70 - 11.00 k/uL 6.68 RBC 4.20 - 6.00 m/uL 4.77 Hemoglobin 13.0 - 17.0 g/dL 14.9 Hematocrit 39.0 - 51.0 % 44.3 MCV 80.0 - 100.0 fL 92.9 MCH 26.0 - 34.0 pg 31.2 MCHC 30.5 - 36.0 g/dL 33.6 RDW-CV 11.5 - 15.0 % 12.7 Platelet Count 150 - 400 k/uL 310 MPV 9.0 - 12.7 fL 10.1 Neut% % 44.9 Abs Neut (ANC) 1.45 - 7.50 k/uL 2.99 Lymph% % 41.0 Abs Lymph 1.00 - 4.00 k/uL 2.74 [place]% % 9.4 Abs [place] <0.87 k/uL 0.63 Eosin% % 3.9 Abs Eosin <0.46 k/uL 0.26 Baso% % 0.7 Abs Baso <0.11 k/uL 0.05 Immature Gran % % 0.1 IMMATURE GRANS (ABS) <0.10 k/uL <0.03 NRBC /100 WBC 0.0 Absolute nRBC <0.01 k/uL <0.01 DTYPE Auto Protein, Total 6.3 - 8.0 g/dL 7.2 Albumin 3.9 - 4.9 g/dL 3.9 Calcium 8.5 - 10.2 mg/dL 9.3 Bilirubin, Total 0.2 - 1.3 mg/dL 0.8 Alkaline Phosphatase 38 - 113 U/L 93 AST 14 - 40 U/L 15 ALT 10 - 54 U/L 15 Glucose 74 - 99 mg/dL 134 (H) BUN 9 - 24 mg/dL 12 Creatinine 0.73 - 1.22 mg/dL 0.77 Sodium 136 - 144 mmol/L 137 Potassium 3.7 - 5.1 mmol/L 4.1 Chloride 97 - 105 mmol/L 101 CO2 22 - 30 mmol/L 25 Anion Gap 9 - 18 mmol/L 11 eGFR >=60 mL/min/1.73m 110 Total Cholesterol, Nonfasting <200 mg/dL 130 Triglycerides, Nonfasting <150 mg/dL 316 (H) HDL Cholesterol, Nonfasting >39 mg/dL 27 (L) LDL Cholesterol, Nonfasting <100 mg/dL 40 Non HDL Cholesterol, Nonfasting <130 mg/dL 103 VLDL Cholesterol, Nonfasting <30 mg/dL 63 (H) Total Chol/HDL Ratio, Nonfasting <5.10 mg/dL 4.81 LDL/HDL Ratio, Nonfasting <2.54 mg/dL 1.48 Hemoglobin A1C 4.3 - 5.6 % 7.0 (H) Estimated Average Glucose mg/dL 154 ASSESSMENT/PLAN: 1. Type 2 diabetes mellitus without complication, with long-term current use of insulin ([facility]) - ICD9: 250.00, V58.67, ICD10: E11.9, Z79.4 (primary diagnosis) - Worsening control - Continue current medications - Blood glucose monitoring on a four times daily schedule - Counseled on healthy diet and regular exercise - Discussed need for and benefit of weight loss. BMI 42.87 kg/(m^2) - Discussed diabetic education issues of diabetes complications and monitoring required, hypoglycemic/hyperglycemic symptoms, medication-specific side effects and monitoring, and diabetic sick day rules 2. Trigger middle finger of left hand - ICD9: 727.03, ICD10: M65.332 Discussed ice and OTC analgesics for any pain. Will refer to ortho hand for injection vs surgery. 3. Trigger ring finger of left hand - ICD9: 727.03, ICD10: M65.342 See above. 4. HIV positive ([facility]) - ICD9: V08, ICD10: Z21 Stable. F/u with ID. Update vaccines today. 5. Hypertriglyceridemia - ICD9: 272.1, ICD10: E78.1 - poor control - Continue current medication. - Encouraged following a low fat, low cholesterol diet. - Discussed the benefits of regular aerobic exercise and weight loss. 6. Morbid obesity with BMI of 40.0-44.9, adult ([facility]) - ICD9: 278.01, V85.41, ICD10: E66.01, Z68.41 Stable - Behavioral intervention 7. Encounter for immunization - ICD9: V03.89, ICD10: Z23 - PNEUMOCOCCAL VACCINE (PREVNAR 20) 8. Need for vaccination - ICD9: V05.9, ICD10: Z23 - HEP A-HEP B VACCINE ([place]) - HEP A-HEP B VACCINE ([place]) - HEP A-HEP B VACCINE ([place]) Saeed Perez MD documented in this encounter [facility] 10-11-2022 Miscellaneous Notes Patient notified of results and provider's instructions. Patient verbalizes understanding. Patient scheduled for follow up visit on 10/24/2022. Rita Lazar RN Message left for patient to call back for update. Marychuy Storm LPN ----- Message from Saeed Perez MD sent at 10/11/2022 9:16 AM EDT ----- Diabetes borderline uncontrolled with A1c of 7. Other labs look good. Recommend he continue to work on DM diet and exercise. Reschedule OV in the next 2-3 weeks and bring in home readings. Should be checking 4 times per day. documented in this encounter [facility] 10-09-2022 Miscellaneous Notes No order for flexpen sent. Armin Giordano APRN.COLLECTIONS ATTORNEY Fax received from [facility] pharmacy. Pharmacy comment: Script clarification: Levemir Flextouch has been discontinued. A new RX is needed for Levemir Flexpen. Please review and advise. documented in this encounter [facility] 09-17-2022 Miscellaneous Notes Pt notified via Simple-Fill. Annette Grande Ma Non fasting labs ordered to be completed at least 2 days prior to OV. documented in this encounter [facility] 07-09-2022 Instructions Messi Guevara APRN.COLLECTIONS ATTORNEY - 07/09/2022 9:56 AM EST How to Manage Common Symptoms Associated with COVID for Adults Fever- Fever is a temperature over 100.4 F and can occur when the body is fighting an infection. To help treat a fever: Drink plenty of fluids and stay well hydrated. Eat small amounts of easy to digest food. Rest. Your body needs rest to recover, but getting up and moving around the house frequently is a good idea. You should try to continue doing your normal daily activities (bathing, toileting, grooming, cooking), though you will probably feel tired, and need to rest often. Avoid any heavy activity or exercise, as this will increase your body temperature. Dress in light clothing and stay covered in a light sheet. Keep the room temperature cool. Take a slightly warm (not cold or cool) bath, or apply damp washcloths to the forehead and wrists. Cough- Cough is a common symptom associated with COVID and can be bothersome. To help treat a cough: Stay well hydrated. Try warm water or tea with lemon and/or honey to help soothe the cough. Use a humidifier to add moisture to the air. Try a product with menthol, like a cough drop or a rub for your chest such as Vicks, which can help reduce cough. Try cough drops. Avoid smoking and other strong odors or perfumes. Try breathing exercises to keep your lungs open and clear. Take a big deep breath through your nose and hold for 5 seconds before slowly releasing. Repeat frequently, while you are awake. Congestion- Runny nose or nasal congestion can occur with COVID. Treatment can help relieve symptoms: Try OTC nasal saline spray, or nasal saline rinse to relieve mucus congestion. Nasal strips can help keep nasal passages open, to increase airflow. Elevating your head with an extra pillow in bed can help reduce congestion. Using a humidifier can increase moisture in the air, and make breathing easier. Sore Throat- Another common symptom with COVID, can be managed at home by: Stay well hydrated. Gargle with salt water - mix teaspoon salt with 1 cup of warm water and gargle. This helps to loosen mucus in the back of the throat and may reduce discomfort. Try ice chips, popsicles or lozenges to soothe the throat. Nausea/Vomiting/Diarrhea- These are common symptoms, and staying hydrated is most important. If you are nauseous or vomiting, start with small sips of water every 10-15 minutes and increase as tolerated. You can try sucking an ice cube too. If tolerating, you can try pedialyte or Gatorade, or flat sprite or garret-meagan. Start slowly and increase as you are able to. Instead of meals, try smaller, more frequent snacks. Try eating bland foods like crackers, toast, rice, and applesauce. Avoid spicy, greasy or fried foods and dairy containing foods. Even if you aren't feeling hungry due to lack of smell or taste, it is important to try to take in some food when you are able. After drinking and eating, rest in an upright position for up to two hours as needed to help decrease nauseous feelings. Try closing your eyes, avoid moving and watching TV. Avoid strong odors that can make you feel more nauseated. When to seek emergency medical attention Look for emergency warning signs for COVID-19. If having any of these symptoms, seek emergency medical care immediately: Trouble breathing Persistent pain or pressure in the chest New confusion Inability to wake or stay awake Bluish lips or face *This list is not all possible symptoms. Please call your medical provider for any other symptoms that are severe or concerning to you. documented in this encounter [facility] 07-09-2022 History of Present illness Narrative Subjective HPI Nontoxic-appearing male presents to urgent care with chief complaint of upper respiratory tract like infection. Duration of symptoms 4 days. Associated symptoms sore throat, nasal congestion, nasal discharge and nonproductive cough. Patient denies the use of any jckc-dze-wppuzxx medications or home remedies for symptom management. Patient states recent sick contacts with similar signs and symptoms. Patient denies any productive cough, fever, chest pain, shortness of breath, pleuritic pain, rash, abdominal pain, nausea, vomiting or change in bowel or bladder habit. Risk factors diabetes HIV. Past medical history prescription medication use allergies reviewed. .Patient presents with: Chest Congestion: cough x 4-5 days PAST MEDICAL HISTORY Diagnosis Date Diabetic nephropathy (HCC) History of tobacco use HIV positive (HCC) Dr. Mccann Hyperlipidemia Hypertension Morbid obesity with BMI of 40.0-44.9, adult ([facility]) Type II or unspecified type diabetes mellitus without mention of complication, not stated as uncontrolled PAST SURGICAL HISTORY Procedure Laterality Date COLONOSCOPY 10/16/2021 repeat in 3 years EYE SURGERY HX as a child NONE ALLERGIES Lipitor [Atorvastatin Calcium] MEDICATIONS lisinopril (ZESTRIL, PRINIVIL) 10 mg tablet Take 1 tablet by mouth once daily. metFORMIN (GLUCOPHAGE) 1,000 mg tablet Take 1 tablet by mouth twice daily with meals. insulin detemir U-100 (LEVEMIR FLEXTOUCH U-100 INSULIN) 100 unit/mL (3 mL) injection pen Inject 50 Units subcutaneously twice daily. Inject 50 units twice a day Insulin [place], Disposable, (BD ULTRAFINE III MINI PEN) 31 gauge x 3/16 Use to inject insulin 5 times daily as directed rosuvastatin (CRESTOR) 5 mg tablet Take 1 tablet by mouth daily at bedtime. insulin aspart U-100 (NOVOLOG FLEXPEN U-100 INSULIN) 100 unit/mL (3 mL) Inject 10 Units subcutaneously three times daily before meals. empagliflozin (JARDIANCE) 25 mg tablet Take 1 tablet by mouth once daily. Take 1 tablet once daily in the morning blood sugar diagnostic (AfoundriaUCH VERIO TEST STRIPS) test strip Use to test blood sugars up to twice daily as instructed. aspirin, enteric coated (ASPIRIN, ENTERIC COATED) 81 mg EC tablet Take 81 mg by mouth once daily. BIKTARVY 50-200-25 mg per tablet Take 1 tablet by mouth daily at bedtime. Blood-Glucose Meter (Visual UnityTOUCH VERIO IQ METER) [facility] Use to check blood sugar up to twice daily as directed. Lancets lancets Test blood sugar(s) 2 times daily. Dx: Type 2 DM - Uncontrolled E11.65 Insulin: Yes multivitamin tablet Take 1 tablet by mouth once daily. FAMILY HISTORY Problem Relation Age of Onset Hypertension Maternal Grandmother Diabetes Maternal Grandmother Hypertension Maternal Grandfather Diabetes Maternal Grandfather Diabetes Mother Prostate Cancer Father Heart disease Brother No Known Problems Paternal Grandmother No Known Problems Paternal Grandfather No Ocular Disease No Family History Social History Tobacco Use Smoking status: Former Types: Cigarettes Quit date: 07/21/2005 Years since quittin.9 Smokeless tobacco: Never Tobacco comments: 1 cigarette per month Vaping Use Vaping Use: Never used Substance Use Topics Alcohol use: Yes Comment: occasionally Drug use: No BP 126/76 Pulse 80 Temp 36.9 C (98.4 F) Resp 16 Wt 121.1 kg (267 lb) SpO2 100% BMI 43.09 kg/m Review of Systems Constitutional: Negative for chills, fever and malaise/fatigue. HENT: Positive for congestion and sore throat. Negative for ear discharge, ear pain and sinus pain. Eyes: Negative for blurred vision, pain, discharge and redness. Respiratory: Positive for cough. Negative for hemoptysis, sputum production, shortness of breath, wheezing and stridor. Cardiovascular: Negative for chest pain. Gastrointestinal: Negative for abdominal pain, diarrhea, nausea and vomiting. Musculoskeletal: Negative for myalgias. Skin: Negative for itching and rash. Neurological: Negative for dizziness and headaches. Objective Physical Exam Constitutional: General: He is not in acute distress. Appearance: He is not diaphoretic. HENT: Head: Normocephalic. Nose: Congestion present. Mouth/Throat: Mouth: Mucous membranes are moist. Pharynx: Oropharynx is clear. No oropharyngeal exudate or posterior oropharyngeal erythema. Eyes: Conjunctiva/sclera: Conjunctivae normal. Pupils: Pupils are equal, round, and reactive to light. Cardiovascular: Rate and Rhythm: Normal rate and regular rhythm. Heart sounds: Normal heart sounds. Pulmonary: Effort: Pulmonary effort is normal. No tachypnea, accessory muscle usage or respiratory distress. Breath sounds: Normal breath sounds. No stridor. No wheezing, rhonchi or rales. Abdominal: Palpations: Abdomen is soft. Tenderness: There is no abdominal tenderness. Musculoskeletal: Cervical back: Normal range of motion and neck supple. No rigidity or tenderness. Lymphadenopathy: Cervical: No cervical adenopathy. Skin: General: Skin is warm and dry. Neurological: Mental Status: He is alert and oriented to person, place, and time. ASSESSMENT/PLAN: 1. URI with cough and congestion - ICD9: 465.9, ICD10: J06.9 - Discussed viral etiology and rationale for treatment. - Symptomatic treatment with prn analgesia - Supportive care with fluids and rest Cough suppressant sent to pharmacy. Patient will follow up with primary care provider as needed. Patient was instructed to immediately proceed to emergency room for any new, worsening, or symptoms lasting longer than anticipated. The patient's clinical presentation is otherwise unremarkable at this time. Based on exam and clinical finding, the patient is stable for discharge. Plan of care was discussed with patient. Patient verbalizes understanding and agrees to plan of care. This note was generated using SOL EL[employer] software. It may contain errors in wording, punctuation, or spelling. Messi Guevara APRN.MAYRA documented in this encounter [facility] 06-22-2022 Miscellaneous Notes Patient phones requesting refills as follows: Requested Prescriptions Pending Prescriptions Disp Refills insulin detemir U-100 (LEVEMIR FLEXTOUCH U-100 INSULIN) 100 unit/mL (3 mL) injection pen 90 mL 1 Sig: Inject 50 Units subcutaneously twice daily. Inject 50 units twice a day KAMLESH 04/12/22 10/10/22 Please review and advise. Cipriano Yang LPN documented in this encounter [facility] 06-22-2022 Miscellaneous Notes Patient phones requesting refills as follows: Requested Prescriptions Pending Prescriptions Disp Refills lisinopril (ZESTRIL, PRINIVIL) 10 mg tablet 90 tablet 1 Sig: Take 1 tablet by mouth once daily. metFORMIN (GLUCOPHAGE) 1,000 mg tablet 180 tablet 1 Sig: Take 1 tablet by mouth twice daily with meals. KAMLESH 04/12/22 10/10/22 Please review and advise. Cipriano Yang LPN documented in this encounter [facility] 05-10-2022 Miscellaneous Notes Patient phones requesting refills as follows: Requested Prescriptions Pending Prescriptions Disp Refills Insulin [place], Disposable, (BD ULTRAFINE III MINI PEN) 31 gauge x 3/16 100 Each 11 Sig: Use to inject insulin 5 times daily as directed rosuvastatin (CRESTOR) 5 mg tablet 90 tablet 3 Sig: Take 1 tablet by mouth daily at bedtime. KAMLESH 04/12/22 NOV 10/10/22 Please review and advise. Evelia Scherer LPN documented in this encounter [facility] 04-12-2022 History of Present illness Narrative 04/12/2022 Patient presents with: F/U 3 Month SUBJECTIVE: This is a 47 year old that is here today for Above Complaints.. DIABETES MELLITUS: Mr. Valdez was last seen on 01/11/2022. Since our last visit he denies excessive thirst or increased frequency of urination, chest pain or dyspnea , numbness, tingling or pain in extremities, new or unusual visual symptoms, low sugar/hypoglycemic reactions, weight loss/gain, lightheadedness/dizziness, and bowel changes/loose stools. Follows a diabetic diet most of the time. He is compliant with medication(s) and is tolerating med(s) without any side effects. He reports checking his glucose on a four times a day schedule with sugars in the fasting 125's and postprandial 200's range. Patient's last HgA1C was Hemoglobin A1C (%) Date Value 03/22/2022 6.9 01/04/2022 7.0 04/06/2021 6.8 01/04/2021 6.4 ) Last Ophthalmology exam was within the past 12 months PAST MEDICAL HISTORY Diagnosis Date Diabetic nephropathy (HCC) History of tobacco use HIV positive (HCC) Dr. Mccann Hyperlipidemia Hypertension Morbid obesity with BMI of 40.0-44.9, adult (HCC) Type II or unspecified type diabetes mellitus without mention of complication, not stated as uncontrolled ALLERGIES Lipitor [Atorvastatin Calcium] MEDICATIONS Current Outpatient Medications Medication Sig insulin aspart U-100 (NOVOLOG FLEXPEN U-100 INSULIN) 100 unit/mL (3 mL) Inject 10 Units subcutaneously three times daily before meals. insulin detemir U-100 (LEVEMIR FLEXTOUCH U-100 INSULIN) 100 unit/mL (3 mL) injection pen Inject 50 Units subcutaneously twice daily. Inject 50 units twice a day lisinopril (ZESTRIL, PRINIVIL) 10 mg tablet Take 1 tablet by mouth once daily. metFORMIN (GLUCOPHAGE) 1,000 mg tablet Take 1 tablet by mouth twice daily with meals. empagliflozin (JARDIANCE) 25 mg tablet Take 1 tablet by mouth once daily. Take 1 tablet once daily in the morning blood sugar diagnostic (ONETOUCH VERIO TEST STRIPS) test strip Use to test blood sugars up to twice daily as instructed. aspirin, enteric coated (ASPIRIN, ENTERIC COATED) 81 mg EC tablet Take 81 mg by mouth once daily. Insulin [place], Disposable, (BD ULTRAFINE III MINI PEN) 31 gauge x 3/16 Use to inject insulin 5 times daily as directed rosuvastatin (CRESTOR) 5 mg tablet Take 1 tablet by mouth daily at bedtime. BIKTARVY 50-200-25 mg per tablet Take 1 tablet by mouth daily at bedtime. Blood-Glucose Meter (Visual UnityTOUCH VERIO IQ METER) [facility] Use to check blood sugar up to twice daily as directed. Lancets lancets Test blood sugar(s) 2 times daily. Dx: Type 2 DM - Uncontrolled E11.65 Insulin: Yes multivitamin tablet Take 1 tablet by mouth once daily. No current facility-administered medications for this visit. Medications and allergies reviewed by this provider. SOCIAL HISTORY Social History Tobacco Use Smoking status: Former Types: Cigarettes Quit date: 07/21/2005 Years since quittin.7 Smokeless tobacco: Never Tobacco comments: 1 cigarette per month Vaping Use Vaping Use: Never used Substance Use Topics Alcohol use: Yes Comment: occasionally Drug use: No REVIEW OF SYSTEMS All other reviewed and negative other than HPI. OBJECTIVE: BP 112/68 Pulse 85 Resp 18 Wt 120.7 kg (266 lb) SpO2 97% BMI 42.93 kg/m . Vital signs reviewed by this provider. APPEARANCE Well appearing, alert, in no acute distress, well-hydrated, well nourished. EYES conjunctiva and sclera normal. HEART RRR with normal S1 and S2, no murmurs, no gallops, no JVD appreciated LUNG clear to auscultation. No wheezes, rhonchi, or rales EXTREMITIES Extremities normal, No deformities, No skin discoloration, No edema, and Normal pulses bilaterally. SKIN Skin color, texture, turgor normal, no suspicious rashes or lesions DM foot exam: shoes and socks removed, No deformities, ulcers, calluses, normal distal pulses, and sensitive to 10 gm monofilament Component Latest Ref Rng & Units 03/22/2022 Protein, Total 6.3 - 8.0 g/dL 6.9 Albumin 3.9 - 4.9 g/dL 3.9 Calcium 8.5 - 10.2 mg/dL 8.9 Bilirubin, Total 0.2 - 1.3 mg/dL 0.7 Alkaline Phosphatase 38 - 113 U/L 97 AST 14 - 40 U/L 16 ALT 10 - 54 U/L 16 Glucose 74 - 99 mg/dL 238 (H) BUN 9 - 24 mg/dL 12 Creatinine 0.73 - 1.22 mg/dL 0.72 (L) Sodium 136 - 144 mmol/L 138 Potassium 3.7 - 5.1 mmol/L 3.8 Chloride 97 - 105 mmol/L 98 CO2 22 - 30 mmol/L 23 Anion Gap 9 - 18 mmol/L 17 eGFR >=60 mL/min/1.73m 112 Hemoglobin A1C 4.3 - 5.6 % 6.9 (H) Estimated Average Glucose mg/dL 151 HEPATITIS B(1 of 3 - 3-dose series) Never done HEPATITIS A(1 of 2 - Risk 2-dose series) Never done PNEUMOCOCCAL(2 - PCV) due on 07/13/2013 COVID-19 VACCINE(4 - Booster for Pfizer series) due on 08/30/2021 INFLUENZA(1) due on 03/21/2022 DILATED RETINAL EXAM due on 06/26/2022 HBA1C due on 09/19/2022 LDL CHOLESTEROL due on 10/04/2022 URINE ALBUMIN:CREATININE RATIO due on 01/04/2023 DEPRESSION SCREENING due on 01/09/2023 ANNUAL PCP TEAM CHRONIC DISEASE VISIT due on 01/11/2023 DIABETIC FOOT EXAM due on 04/12/2023 COLORECTAL CANCER SCREENING due on 10/16/2024 DTAP,TDAP,TD(2 - Td or Tdap) due on 06/29/2030 HEPATITIS C SCREENING Completed HIV SCREENING Completed ASSESSMENT/PLAN: 1. Type 2 diabetes mellitus without retinopathy (HCC) - ICD9: 250.00, ICD10: E11.9 (primary diagnosis) improved control - Continue current medications - Blood glucose monitoring on a four times a day schedule - Follow up in 6 months, sooner should any other issues arise. - BP goal of <130/80 - LDL goal of <100 2. Encounter for immunization - ICD9: V03.89, ICD10: Z23 - INFLUENZA VACCINE QUADRIVALENT 6 MO - 64 YRS IM [facility] BIVALENT BOOSTER VACCINE, AGE 12+ YR Armin Giordano APRN.MAYRA I spent a total of 25 minutes on the date of the service which included preparing to see the patient, thep-ny-ypfe patient care, completing clinical documentation, obtaining and/or reviewing separately obtained history, performing a medically appropriate examination, counseling and educating the patient/family/caregiver, and ordering medications, tests, or procedures. documented in this encounter [facility] 03-26-2022 Miscellaneous Notes Patient notified of results and provider's instructions. Patient verbalizes understanding. Rita Lazar RN Phoned patient and VM left for him to return call to receive providers message regarding lab results. Please call patient and let him know his A1c was 6.9%. The rest of his blood work was normal. Follow-up as scheduled. Armin Giordano APRN.CNP documented in this encounter [facility] 02-11-2022 Miscellaneous Notes Patient phones requesting refills as follows: Pending Prescriptions Disp Refills LEVEMIR FLEXTOUCH U-100 INSULIN 100 UNIT/ML (3 ML) SUBCUTANEOUS PEN 90 mL 1 Sig: Inject 50 Units subcutaneously twice daily. Inject 50 units twice a day AALIYAH: No KAMLESH 01/11/22 NOV 04/12/22 Please review and advise. Evelia Scherer LPN documented in this encounter [facility] 01-11-2022 History of Present illness Narrative Chief Complaint Patient presents with: F/U 3 Month HPI Tonia Valdez is a 46 year old male who presents here today for 3 month follow up. DIABETES MELLITUS: Mr. Valdez was last seen 3 months ago. Since our last visit he denies excessive thirst or increased frequency of urination, numbness, tingling or pain in extremities, new or unusual visual symptoms and low sugar/hypoglycemic reactions.Follows a diabetic diet most of the time. Has cut back on pop, using air fryer more, eating lower carb meals. Down 6 lbs in the last 3 months. He is compliant with medication(s) and is tolerating med(s) without any side effects. He reports checking his glucose on a twice a day schedule with sugars in the fasting 100-130 range. Before bed: 110-140. Patient's last HgA1C was Hemoglobin A1C (%) Date Value 01/04/2022 7.0 10/04/2021 7.3 04/06/2021 6.8 01/04/2021 6.4 ) Last Ophthalmology exam was within the past 12 months Last Podiatry exam was within the past 12 months Past medical history, appointments, medications, allergies reviewed. Previous Medical History PAST MEDICAL HISTORY Diagnosis Date Diabetic nephropathy (HCC) History of tobacco use HIV positive ([facility]) Dr. Mccann Hyperlipidemia Hypertension Morbid obesity with BMI of 40.0-44.9, adult (HCC) Type II or unspecified type diabetes mellitus without mention of complication, not stated as uncontrolled Previous Surgical History PAST SURGICAL HISTORY Procedure Laterality Date COLONOSCOPY 10/16/2021 repeat in 3 years EYE SURGERY HX as a child NONE Family History FAMILY HISTORY Problem Relation Age of Onset Hypertension Maternal Grandmother Diabetes Maternal Grandmother Hypertension Maternal Grandfather Diabetes Maternal Grandfather Diabetes Mother Prostate Cancer Father Heart disease Brother No Known Problems Paternal Grandmother No Known Problems Paternal Grandfather No Ocular Disease No Family History Patient Allergies ALLERGIES Allergen Reactions Lipitor [Atorvastat* Other: See Comments Tingling in legs Current Medications Current Outpatient Medications on File Prior to Visit Medication Sig lisinopril (ZESTRIL, PRINIVIL) 10 mg tablet Take 1 tablet by mouth once daily. metFORMIN (GLUCOPHAGE) 1,000 mg tablet Take 1 tablet by mouth twice daily with meals. insulin detemir U-100 (LEVEMIR FLEXTOUCH U-100 INSULIN) 100 unit/mL (3 mL) injection pen Inject 50 units twice a day insulin aspart U-100 (NOVOLOG FLEXPEN U-100 INSULIN) 100 unit/mL (3 mL) Inject 10 Units subcutaneously three times daily before meals. empagliflozin (JARDIANCE) 25 mg tablet Take 1 tablet by mouth once daily. Take 1 tablet once daily in the morning aspirin, enteric coated (ASPIRIN, ENTERIC COATED) 81 mg EC tablet Take 81 mg by mouth once daily. rosuvastatin (CRESTOR) 5 mg tablet Take 1 tablet by mouth daily at bedtime. BIKTARVY 50-200-25 mg per tablet Take 1 tablet by mouth daily at bedtime. multivitamin tablet Take 1 tablet by mouth once daily. blood sugar diagnostic (AfoundriaUCH VERIO TEST STRIPS) test strip Use to test blood sugars up to twice daily as instructed. Insulin [place], Disposable, (BD ULTRAFINE III MINI PEN) 31 gauge x 3/16 Use to inject insulin 5 times daily as directed Blood-Glucose Meter (Visual UnityTOUCH VERIO IQ METER) [facility] Use to check blood sugar up to twice daily as directed. Lancets lancets Test blood sugar(s) 2 times daily. Dx: Type 2 DM - Uncontrolled E11.65 Insulin: Yes No current facility-administered medications on file prior to visit. Social History Social History Tobacco Use Smoking status: Former Smoker Types: Cigarettes Quit date: 07/21/2005 Years since quittin.4 Smokeless tobacco: Never Used Tobacco comment: 1 cigarette per month Vaping Use Vaping Use: Never used Substance Use Topics Alcohol use: Yes Comment: occasionally Drug use: No Review of Symptoms REVIEW OF SYSTEMS GENERAL: No weight loss, malaise or fevers RESPIRATORY: Negative for cough, hemoptysis, wheezing, COPD, dyspnea or shortness of breath CARDIOVASCULAR: Negative for chest pain, leg swelling, hypertension, CHF or palpitations GI: No nausea, vomiting, or diarrhea SKIN: Negative for lesions, rash, and itching EXAM: BP 112/70 Pulse 96 Temp 36.5 C (97.7 F) (Right Tympanic) Resp 16 Wt 117.9 kg (260 lb) BMI 41.97 kg/m General Appearance: Well appearing, alert, in no acute distress, well-hydrated, well nourished.. Skin: Skin color, texture, turgor normal, no suspicious rashes or lesions. Lungs: Lungs clear to auscultation. No wheezing, rhonchi, rales.. Heart: RRR without murmur, gallop, or rubs. No ectopy. Abdomen: Normal abdominal exam, Abdomen soft, non-tender. Bowel sounds normal. No masses, organomegaly. Extremities: No deformities, edema, skin discoloration, clubbing or cyanosis. Good capillary refill. . Health Maintenance List HEPATITIS B(1 of 3 - Risk 3-dose series) Never done PNEUMOCOCCAL(2 - PCV) due on 07/13/2013 DIABETIC FOOT EXAM due on 04/12/2022 DILATED RETINAL EXAM due on 06/26/2022 HBA1C due on 07/06/2022 LDL CHOLESTEROL due on 10/04/2022 ANNUAL PCP TEAM CHRONIC DISEASE VISIT due on 10/11/2022 URINE ALBUMIN:CREATININE RATIO due on 01/04/2023 DEPRESSION SCREENING due on 01/09/2023 COLORECTAL CANCER SCREENING due on 10/16/2024 DTAP,TDAP,TD(2 - Td or Tdap) due on 06/29/2030 INFLUENZA Completed HEPATITIS C SCREENING Completed HIV SCREENING Completed COVID-19 VACCINE Completed Data reviewed Component Latest Ref Rng & Units 10/04/2021 01/04/2022 Protein, Total 6.3 - 8.0 g/dL 7.7 Albumin 3.9 - 4.9 g/dL 4.0 Calcium 8.5 - 10.2 mg/dL 9.3 Bilirubin, Total 0.2 - 1.3 mg/dL 0.9 Alkaline Phosphatase 38 - 113 U/L 92 AST 14 - 40 U/L 20 ALT 10 - 54 U/L 18 Glucose 74 - 99 mg/dL 118 (H) BUN 9 - 24 mg/dL 11 Creatinine 0.73 - 1.22 mg/dL 0.61 (L) Sodium 136 - 144 mmol/L 136 Potassium 3.7 - 5.1 mmol/L 4.2 Chloride 97 - 105 mmol/L 99 CO2 22 - 30 mmol/L 24 Anion Gap 9 - 18 mmol/L 13 eGFR >=60 mL/min/1.73m 118 Cholesterol, Total <200 mg/dL 134 Triglyceride <150 mg/dL 255 (H) HDL Cholesterol >39 mg/dL 29 (L) Non HDL Cholesterol <130 mg/dL 105 Fasting Time hrs 10 VLDL Cholesterol <30 mg/dL 51 (H) TC:HDL Ratio <5.10 4.62 LDL Cholesterol <100 mg/dL 54 LDL:HDL Ratio <2.54 1.86 Creatinine, Ur Random (UCRR) 20.0 - 300.0 mg/dL 90.1 Albumin, Urine Random mg/L 199.7 Albumin/Creat Ratio <30 mg/g 222 (H) Hemoglobin A1C 4.3 - 5.6 % 7.3 (H) 7.0 (H) Estimated Average Glucose mg/dL 163 154 ASSESSMENT/PLAN: 1. Type 2 diabetes mellitus without complication, with long-term current use of insulin (HCC) - ICD9: 250.00, V58.67, ICD10: E11.9, Z79.4 improved control - Continue current medications - Blood glucose monitoring on a twice a day schedule - Encouraged regular aerobic exercise and weight loss - Daily Asprin therapy recommended - Follow up in 3 months, sooner should any other issues arise. - Discussed diabetic education issues of terminal carman diabetic complications, hypoglycemic symptoms, hyperglycemic symptoms, diet, medications- side effects and need for compliance, importance of exercise, use and side effects of insulin and importance of annual examinations with Opthalmology with patient. - LEVEMIR FLEXTOUCH U-100 INSULIN 100 UNIT/ML (3 ML) SUBCUTANEOUS PEN - COMP METABOLIC PANEL - HGB A1C Saeed Perez MD documented in this encounter [facility] 12-25-2021 Miscellaneous Notes RX INSTRUCTIONS: Patient aware RX will be sent to pharmacy. No need to notify patient. Last OV: 10/11/21 with PCP Last refill: 11/26/21 With 15 pen and 1 refills Last oarrs report completed: N/A Follow up: 01/11/22-3 month F/U with PCP Calli Evans MA documented in this encounter [facility] 12-12-2021 Miscellaneous Notes Patient phones requesting refills as follows: Pending Prescriptions Disp Refills EMPAGLIFLOZIN 25 MG TABLET 90 tablet 1 Sig: Take 1 tablet by mouth once daily. Take 1 tablet once daily in the morning AALIYAH: No KAMLESH 10/11/21 NOV 01/11/22 Please review and advise. Cipriano Yang LPN documented in this encounter [facility] 11-26-2021 Miscellaneous Notes Patient phones requesting refills as follows: Pending Prescriptions Disp Refills ONETOUCH VERIO TEST STRIPS 100 Strip 11 Sig: Use to test blood sugars up to twice daily as instructed. AALIYAH: No KAMLESH-10/11/21 Labs-10/04/21May-01/11/22 Please review and advise. Tori Tavera LPN documented in this encounter [facility] 11-26-2021 Miscellaneous Notes Patient phones requesting refills as follows: Pending Prescriptions Disp Refills LEVEMIR FLEXTOUCH U-100 INSULIN 100 UNIT/ML (3 ML) SUBCUTANEOUS PEN 15 Pen 1 Sig: Inject 50 units twice a day AALIYAH: No KAMLESH-10/11/21 Labs-10/04/21 NOV-01/11/22 Please review and advise. Tori Tavera LPN documented in this encounter [facility] 10-24-2021 History of Present illness Narrative FOLLOW UP VISIT - ENDOSCOPY NAME: Tonia Valdez [facility] NO.: [id number] DATE OF SERVICE: 10/24/2021 : 1975 REFERRING PHYSICIAN: Saeed Perez MD Tonia is a patient I am following for screening colonoscopy. Dr. Cedeño performed lower endoscopy on 10/16/21. The patient was found to have four medium polyps in the rectum and transverse colon which were removed. Pathology demonstrated: FINAL DIAGNOSIS A. Transverse colon, polyp, biopsy: Fragments of tubular adenoma B. Rectum, polyp, biopsy: Hyperplastic polyp versus prolapse type polyp The patient notes no complaints since the procedure. VITALS: Blood pressure 126/72, pulse 98, temperature (!) 35.1 C (95.1 F), height 167.6 cm (5' 6 ), weight 120.7 kg (266 lb 3.2 oz), SpO2 99 %. General: patient is alert, cooperative, pleasant and in no acute distress On examination, the abdomen is benign. Assessment IMPRESSION: s/p colonoscopy with polypectomy-multiple adenomatous and hyperplastic polyps PLAN: The operative findings and pathology report were reviewed with the patient, and the patient has had the opportunity to ask questions and have questions answered. If the patient notes any problems or changes in bowel function, the patient should contact me immediately. Otherwise I recommend follow up endoscopy in 3 years. HM updated and recall letter generated. Patient verbalized understanding of all above and agreed with the plan Diagnoses: (D36.9) Tubular adenoma (primary encounter diagnosis) I spent a total of 23 minutes on the date of the service which included preparing to see the patient, [id number] patient care, completing clinical documentation, counseling and educating the patient/family/caregiver, communicating with other HCPs (not separately reported), independently interpreting results (not separately reported) and communicating results to the patient/family/caregiver. Jigna Ayala PA-C documented in this encounter [facility] 10-24-2021 Instructions Jigna Ayala PA-C - 10/24/2021 10:23 AM EDT The following instructions are important for you related to your office visit today with the [facility] General Surgeons. INSTRUCTIONS FOLLOWING A POLYP FOUND AT COLONOSCOPY You were found to have a hyperplastic colon polyp and adenomatous colon polyps. I recommend you undergo repeat endoscopy in 3 years. If you note bleeding, change in bowel habits, or other suspicious colon related symptoms before that time, those symptoms should be evaluated as necessary. If you have any difficulties or concerns, you should contact our office immediately. If you note any additional difficulties, questions, or concerns, you should contact our office immediately @ [phone] and ask to be transferred to the General Surgery department. documented in this encounter [facility] 10-16-2021 Nurse Note Arrived in phase II via cart. Left lateral position. Sedated, but responds to verbal stimuli. Color normal; skin warm and dry. Respirations wnl and unlabored. Abdomen soft and with + bowel sounds in quads X 4. Patient resting comfortably. Dr. Cedeño at bedside to review procedure and recommendations. Ofe Sutherland RN [facility] PRE[facility]OP NURSING HAND OFF NOTE SBAR Hand off given to Nasra Redman RN. Hand off was communicated verbally and at the patient's bedside and all questions were answered. Tori Stevens RN documented in this encounter [facility] 10-16-2021 History and physical note UPDATED PROCEDURAL SEDATION HISTORY AND PHYSICAL EXAMINATION SERVICE DATE: 10/16/2021 SERVICE TIME: 7:47 AM PHYSICAL EXAM MUST BE COMPLETED ON ADMISSION PROCEDURE: Procedure Indications: The History and Physical (completed in the past 30 days) has been reviewed and the patient has been examined. The contents accurately reflect the patient's condition with the following additions or revisions since the H&P was completed. ASA Class: ASA Class:: Patient with mild systemic disease Examination indicates no changes. AIRWAY: Airway Visualization of Uvula: Yes Mouth opening greater than 2 fingerbreadths: Yes Neck Full Range of Motion: Yes LUNGS: Lungs clear to auscultation CARDIAC: Regular rhythm,Regular rate Provisional Diagnosis/Treatment Plan: screening colonoscopy SEDATION GOAL: Moderate This H&P can be found in the attached. SIGNATURE: Sandor Cedeño MD PATIENT NAME: Tonia Valdez DATE: October 16, 2021 TIME: 7:47 AM Images from the original note were not included. HISTORY AND PHYSICAL Tonia Valdez 1975 REFERRING PHYSICIAN: Saeed Perez,* CHIEF COMPLAINT: Consult (Colonoscopy) HPI: The patient is a 46 year old male referred for endoscopy. Tonia notes no colon complaints. Patient denies any change in bowel habits, weight changes, blood in stools, black tarry stools or abdominal pain. Patient is unsure about family history of colon issues-thinks there is a possibility father may have had colon cancer. The patient notes no upper GI complaints. Tonia has not undergone prior endoscopy. Patient's past medical history is significant for type II diabetes mellitus, morbid obesity, history of tobacco use, HIV positive. Patient follows with Dr. Perez in primary care for his chronic medical conditions. Patient denies chest pain, shortness of breath or recent hospitalizations. Denies problems with sedation in the past. PAST MEDICAL HISTORY PAST MEDICAL HISTORY Diagnosis Date Diabetic nephropathy (HCC) History of tobacco use HIV positive ([facility]) Dr. Mccann Hyperlipidemia Morbid obesity with BMI of 40.0-44.9, adult (HCC) Type II or unspecified type diabetes mellitus without mention of complication, not stated as uncontrolled PAST SURGICAL HISTORY PAST SURGICAL HISTORY Procedure Laterality Date NONE CURRENT MEDICATIONS Current Outpatient Medications Medication Sig insulin aspart U-100 (NOVOLOG FLEXPEN U-100 INSULIN) 100 unit/mL (3 mL) Inject 10 Units subcutaneously three times daily before meals. erythromycin ophthalmic ointment Use 1 application in the right eye three times daily. insulin detemir U-100 (LEVEMIR FLEXTOUCH U-100 INSULIN) 100 unit/mL (3 mL) injection pen Inject 50 units twice a day empagliflozin (JARDIANCE) 25 mg tablet Take 1 tablet by mouth once daily. Take 1 tablet once daily in the morning lisinopril (ZESTRIL, PRINIVIL) 10 mg tablet Take 1 tablet by mouth once daily. metFORMIN (GLUCOPHAGE) 1,000 mg tablet Take 1 tablet by mouth twice daily with meals. flash glucose scanning reader (Lancope ERLIN 14 DAY READER) 1 Device four times daily. rosuvastatin (CRESTOR) 5 mg tablet Take 1 tablet by mouth daily at bedtime. Insulin [place], Disposable, (BD ULTRAFINE III MINI PEN) 31 gauge x 3/16 Use to inject insulin 5 times daily as directed blood sugar diagnostic (ONETOUCH VERIO) test strip Use to test blood sugars up to twice daily as instructed. BIKTARVY 50-200-25 mg per tablet Take 1 tablet by mouth daily at bedtime. Blood-Glucose Meter (ONETOUCH VERIO IQ METER) [facility] Use to check blood sugar up to twice daily as directed. melatonin 5 mg tablet Take 5 mg by mouth every evening. Lancets lancets Test blood sugar(s) 2 times daily. Dx: Type 2 DM - Uncontrolled E11.65 Insulin: Yes multivitamin tablet Take 1 tablet by mouth once daily. No current facility-administered medications for this visit. ALLERGIES: Lipitor [Atorvastatin Calcium] PERSONAL HISTORY: SOCIAL HISTORY Social History Tobacco Use Smoking status: Former Smoker Types: Cigarettes Quit date: 07/21/2005 Years since quittin.8 Smokeless tobacco: Never Used Tobacco comment: 1 cigarette per month Vaping Use Vaping Use: Never used Substance Use Topics Alcohol use: Yes Comment: rarely Drug use: No FAMILY HISTORY: FAMILY HISTORY FAMILY HISTORY Problem Relation Age of Onset Hypertension Maternal Grandmother Diabetes Maternal Grandmother Hypertension Maternal Grandfather Diabetes Maternal Grandfather Diabetes Mother Prostate Cancer Father Heart disease Brother No Known Problems Paternal Grandmother No Known Problems Paternal Grandfather No Ocular Disease No Family History REVIEW OF SYMPTOMS: The review of systems data was entered by the nurse and reviewed by ne Nursing Notes: Lisette Baer LPN 05/15/2021 8:32 AM Signed REVIEW OF SYSTEMS: General: The patient denies fatigue, denies weight loss, denies weight gain, denies feeling hot, and denies feelings of cold. Eyes: The patient denies glaucoma, denies eye injury/surgery, does not wear glasses or contacts. Ear/Nose/Throat: The patient denies allergies, denies hayfever, denies ear infections, and denies bloody noses. Cardiovascular: The patient denies chest pain, denies heart disease, denies high blood pressure,denies cardiac stent, denies prior heart attack, denies irregular heart beat, denies high cholesterol, denies poor circulation, denies heart failure, other cardiac issues, denies claudication, denies cold feet, denies peripheral arterial stent. Respiratory: The patient denies tuberculosis, denies pneumonia, denies frequent cough, denies pulmonary embolism, NOTES shortness of breath, and denies coughing up blood. Gastrointestinal: The patient denies difficulty swallowing, denies acid reflux, denies ulcers, denies vomiting, denies jaundice/hepatitis, denies gallbladder problems, denies black or tarry stools, denies hemorrhoids, denies bleeding from rectum, denies diverticulitis, denies constipation, denies diarrhea, denies loss of stool control, and denies hernias. Kidney/Bladder: The patient NOTES kidney stones, denies urine infections, and denies bloody urine. Skin: The patient denies a history of skin cancer, denies bleeding/changing moles, and denies a history of skin rash. Neurologic: The patient denies a history of epilepsy/convulsions, denies headaches, denies head/spinal injuries, and denies stroke/TIA. Psychiatric: The patient denies psychiatric medications, denies depression, and denies voices, denies substance abuse. Endocrine: The patient denies thyroid disorders, NOTES diabetes, and denies hormonal problems. Hematologic: The patient denies a history of bruising, denies bleeding, and denies anemia, denies blood clots. Infections: The patient denies a history of measles and mumps, denies rheumatic fever, and NOTES sexually transmitted diseases. Musculoskeletal: The patient denies back pain/injury, denies back problems, denies sciatica, denies knee/foot trouble, denies arthritis, or denies gout. When was patient's last Mammogram screening? N/A Last Colonoscopy: None Lisette Baer LPN I have confirmed and edited as necessary, the PFSH and ROS obtained by others. Jigna Ayala PA-C PHYSICAL EXAMINATION: General: The patient is 46 year old male, well nourished, well hydrated in no acute distress. The patient is oriented to time, place, and person. VITALS: Blood pressure 132/68, pulse 99, temperature (!) 35.8 C (96.4 F), height 167.6 cm (5' 6 ), weight 121.6 kg (268 lb), SpO2 99 %. Body mass index is 43.26 kg/m . HEENT: Normal cephalic, ataumatic, pupils are equally round, sclera are anicteric, mucous membranes are moist, oropharynx is clear. Neck has no masses, asymmetry or lymphadenopathy. Respiratory: Clear to auscultation and percussion. Normal respiratory excursion and pattern. Cardiac: Examination is regular rate and rhythm. Normal S1/S2 Abdominal exam: Soft, nontender, with no palpable masses. No hepatosplenomegaly. No palpable hernias. Extremities: no clubbing, cyanosis or edema. No adenopathy. LABORATORY VALUES: As Noted RADIOLOGIC STUDIES: As Noted Assessment IMPRESSION: encounter for screening colonoscopy ?family history of colon cancer-patient to check and confirm as this will affect his colonoscopy surveillance interval PLAN: I have reviewed my findings with the surgeon. Will plan for lower endoscopy. We discussed the risks and benefits of the planned endoscopy. I have informed the patient that complications can occur including failure to complete the endoscopy and perforation. The patient had the opportunity to ask questions concerning the planned endoscopy. My staff has also explained the procedure to the patient in understandable terms and has given the patient printed material concerning the procedure. The patient freely consents to surgery. The patient was offered a surgery/procedure at a [facility] facility. I have counseled the patient regarding the risk of exposure to and/or potential harm posed by the COVID-19 virus with having a surgery/procedure at this time versus the risk of delaying the surgery/procedure. It is not possible to know either the risk of delaying the surgery or procedure or chance of getting an infection with perfect accuracy, but a joint decision was made between the patient and myself to proceed at this time with endoscopy. I plan to use Golytely bowel preparation Patient instructed to contact PCP for instructions regarding diabetic medication, which may require adjustment during bowel preparation and/or day of procedure Diagnoses: (Z12.11) Screening for colon cancer Consultation requested by Dr. Perez for an opinion regarding colon cancer screening. My final recommendations will be communicated back to the requesting physician by way of shared Medical record or letter to requesting physician via US mail. Jigna Ayala PA-C documented in this encounter [facility] documented as of this encounter (statuses as of 10/17/2021) [facility] History of Past illness Narrative* Problem Noted Date Resolved Date Diabetes mellitus type 2, insulin dependent 04/2104/12/2021 Abscess of left groin 10/15/2011 07/13/2012 documented as of this encounter (statuses as of 10/24/2021) [address]24-2012 History of Past illness Narrative* Problem Noted Date Resolved Date Diabetes mellitus type 2, insulin dependent 04/2104/12/2021 Abscess of left groin 10/15/2011 07/13/2012 documented as of this encounter (statuses as of 11/26/2021) [address]24-2012 History of Past illness Narrative* Problem Noted Date Resolved Date Diabetes mellitus type 2, insulin dependent 04/2104/12/2021 Abscess of left groin 10/15/2011 07/13/2012 documented as of this encounter (statuses as of 11/26/2021) [facility] History of Past illness Narrative* Problem Noted Date Resolved Date Diabetes mellitus type 2, insulin dependent 04/2104/12/2021 Abscess of left groin 10/15/2011 07/13/2012 documented as of this encounter (statuses as of 12/12/2021) [facility] History of Past illness Narrative* Problem Noted Date Resolved Date Diabetes mellitus type 2, insulin dependent 04/2104/12/2021 Abscess of left groin 10/15/2011 07/13/2012 documented as of this encounter (statuses as of 12/25/2021) [facility] History of Past illness Narrative* Problem Noted Date Resolved Date Diabetes mellitus type 2, insulin dependent 04/2104/12/2021 Abscess of left groin 10/15/2011 07/13/2012 documented as of this encounter (statuses as of 01/11/2022) [facility] History of Past illness Narrative* Problem Noted Date Resolved Date Diabetes mellitus type 2, insulin dependent 04/2104/12/2021 Abscess of left groin 10/15/2011 07/13/2012 documented as of this encounter (statuses as of 02/11/2022) [facility] History of Past illness Narrative* Problem Noted Date Resolved Date Diabetes mellitus type 2, insulin dependent 04/2104/12/2021 Abscess of left groin 10/15/2011 07/13/2012 documented as of this encounter (statuses as of 03/26/2022) [address]24-2012 History of Past illness Narrative* Problem Noted Date Resolved Date Diabetes mellitus type 2, insulin dependent 04/2104/12/2021 Abscess of left groin 10/15/2011 07/13/2012 documented as of this encounter (statuses as of 04/12/2022) [facility] History of Past illness Narrative* Problem Noted Date Resolved Date Diabetes mellitus type 2, insulin dependent 04/2104/12/2021 Abscess of left groin 10/15/2011 07/13/2012 documented as of this encounter (statuses as of 05/10/2022) [facility] of Past illness Narrative* Problem Noted Date Resolved Date Diabetes mellitus type 2, insulin dependent 04/2104/12/2021 Abscess of left groin 10/15/2011 07/13/2012 documented as of this encounter (statuses as of 06/24/2022) [facility] History of Past illness Narrative* Problem Noted Date Resolved Date Diabetes mellitus type 2, insulin dependent 04/2104/12/2021 Abscess of left groin 10/15/2011 07/13/2012 documented as of this encounter (statuses as of 07/09/2022) [facility] of Past illness Narrative* Problem Noted Date Resolved Date Diabetes mellitus type 2, insulin dependent 04/2104/12/2021 Abscess of left groin 10/15/2011 07/13/2012 documented as of this encounter (statuses as of 09/18/2022) [facility] of Past illness Narrative* Problem Noted Date Resolved Date Diabetes mellitus type 2, insulin dependent 04/2104/12/2021 Abscess of left groin 10/15/2011 07/13/2012 documented as of this encounter (statuses as of 10/09/2022) [facility] of Past illness Narrative* Problem Noted Date Resolved Date Diabetes mellitus type 2, insulin dependent 04/2104/12/2021 Abscess of left groin 10/15/2011 07/13/2012 documented as of this encounter (statuses as of 10/11/2022) [address]24[address]2012 History of Past illness Narrative* Problem Noted Date Resolved Date Diabetes mellitus type 2, insulin dependent 04/2104/12/2021 Abscess of left groin 10/15/2011 07/13/2012 documented as of this encounter (statuses as of 10/27/2022) [facility] of Past illness Narrative* Problem Noted Date Resolved Date Diabetes mellitus type 2, insulin dependent 04/2104/12/2021 Abscess of left groin 10/15/2011 07/13/2012 documented as of this encounter (statuses as of 01/02/2023) [facility] History of Past illness Narrative* Problem Noted Date Resolved Date Diabetes mellitus type 2, insulin dependent 04/2104/12/2021 Abscess of left groin 10/15/2011 07/13/2012 documented as of this encounter (statuses as of 01/07/2023) [address]24-2012 History of Past illness Narrative* Problem Noted Date Resolved Date Diabetes mellitus type 2, insulin dependent 04/2104/12/2021 Abscess of left groin 10/15/2011 07/13/2012 documented as of this encounter (statuses as of 2023) [facility] History of Past illness Narrative* Problem Noted Date Diagnosed Date Resolved Date Diabetes mellitus type 2, insulin dependent 05/13/2012 04/12/2021 Abscess of left groin 10/15/20112011 documented as of this encounter (statuses as of 02/04/2023) [facility] History of Past illness Narrative* Problem Noted Date Diagnosed Date Resolved Date Diabetes mellitus type 2, insulin dependent 05/13/2012 04/12/2021 Abscess of left groin 10/15/20112011 documented as of this encounter (statuses as of 02/10/2023) [facility] History of Past illness Narrative* Problem Noted Date Diagnosed Date Resolved Date Diabetes mellitus type 2, insulin dependent 05/13/2012 04/12/2021 Abscess of left groin 10/15/20112011 documented as of this encounter (statuses as of 02/13/2023) [facility] History of Past illness Narrative* Problem Noted Date Diagnosed Date Resolved Date Diabetes mellitus type 2, insulin dependent 05/13/2012 04/12/2021 Abscess of left groin 10/15/20112011 documented as of this encounter (statuses as of 02/14/2023) [facility] History of Past illness Narrative* Problem Noted Date Diagnosed Date Resolved Date Diabetes mellitus type 2, insulin dependent 05/13/2012 04/12/2021 Abscess of left groin 10/15/20112011 documented as of this encounter (statuses as of 03/01/2023) [facility] History of Past illness Narrative* Problem Noted Date Diagnosed Date Resolved Date Diabetes mellitus type 2, insulin dependent 05/13/2012 04/12/2021 Abscess of left groin 10/15/20112011 documented as of this encounter (statuses as of 03/25/2023) [facility] History of Past illness Narrative* Problem Noted Date Diagnosed Date Resolved Date Diabetes mellitus type 2, insulin dependent 05/13/2012 04/12/2021 Abscess of left groin 10/15/20112011 documented as of this encounter (statuses as of 04/11/2023) [facility] History of Past illness Narrative* Problem Noted Date Diagnosed Date Resolved Date Diabetes mellitus type 2, insulin dependent 05/13/2012 04/12/2021 Abscess of left groin 10/15/20112011 documented as of this encounter (statuses as of 05/02/2023) [facility] History of Past illness Narrative* Problem Noted Date Diagnosed Date Resolved Date Diabetes mellitus type 2, insulin dependent 05/13/2012 04/12/2021 Abscess of left groin 10/15/20112011 documented as of this encounter (statuses as of 05/25/2023) [facility] History of Past illness Narrative* Problem Noted Date Diagnosed Date Resolved Date Diabetes mellitus type 2, insulin dependent 05/13/2012 04/12/2021 Abscess of left groin 10/15/20112011 documented as of this encounter (statuses as of 06/25/2023) [facility] History of Past illness Narrative* Problem Noted Date Diagnosed Date Resolved Date Diabetes mellitus type 2, insulin dependent 05/13/2012 04/12/2021 Abscess of left groin 10/15/20112011 documented as of this encounter (statuses as of 07/03/2023) [facility] History of Past illness Narrative* Problem Noted Date Diagnosed Date Resolved Date Diabetes mellitus type 2, insulin dependent 05/13/2012 04/12/2021 Abscess of left groin 10/15/20112011 documented as of this encounter (statuses as of 07/03/2023) [facility] note* Diagnosis Screening for colon cancer Special screening for malignant neoplasms, colon [facility] Diagnosis Tubular adenoma- Primary Benign neoplasm of unspecified site [facility] Diagnosis Type 2 diabetes mellitus without complication, with long-term current use of insulin (HCC) [facility] Diagnosis Type 2 diabetes mellitus without complication, with long-term current use of insulin (HCC) [facility] Diagnosis Type 2 diabetes mellitus without complication, with long-term current use of insulin (HCC) [facility] Diagnosis Type 2 diabetes mellitus without retinopathy (HCC)- Primary Type II or unspecified type diabetes mellitus without mention of complication, not stated as uncontrolled Encounter for immunization Need for other specified prophylactic vaccination against single bacterial disease Diabetes mellitus type 2, insulin dependent (HCC) Type II or unspecified type diabetes mellitus without mention of complication, not stated as uncontrolled Hypertriglyceridemia Pure hyperglyceridemia [facility] Diagnosis Diabetes mellitus type 2, insulin dependent (HCC) Type II or unspecified type diabetes mellitus without mention of complication, not stated as uncontrolled [facility] Diagnosis Diabetes mellitus type 2, insulin dependent (HCC) Type II or unspecified type diabetes mellitus without mention of complication, not stated as uncontrolled [facility] Diagnosis URI with cough and congestion- Primary Viral illness Unspecified viral infection, in conditions classified elsewhere and of unspecified site [facility] Diagnosis Type 2 diabetes mellitus without complication, with long-term current use of insulin ([facility])- Primary [facility] Diagnosis Type 2 diabetes mellitus without complication, with long-term current use of insulin ([facility])- Primary Trigger middle finger of left hand Trigger finger (acquired) Trigger ring finger of left hand Trigger finger (acquired) HIV positive (HCC) Asymptomatic human immunodeficiency virus (HIV) infection status Hypertriglyceridemia Pure hyperglyceridemia Morbid obesity with BMI of 40.0-44.9, adult (HCC) Morbid obesity Encounter for immunization Need for other specified prophylactic vaccination against single bacterial disease Need for vaccination Need for prophylactic vaccination and inoculation against unspecified single disease [facility] Diagnosis Trigger middle finger of left hand Trigger finger (acquired) Trigger ring finger of left hand Trigger finger (acquired) [facility] Diagnosis Type 2 diabetes mellitus without complication, with long-term current use of insulin ([facility]) [facility] Diagnosis Trigger ring finger of left hand- Primary Trigger finger (acquired) Postoperative stitch abscess Other postoperative infection Trigger middle finger of left hand Trigger finger (acquired) [facility]* Diagnosis Diabetes mellitus type 2, insulin dependent (HCC) Type II or unspecified type diabetes mellitus without mention of complication, not stated as uncontrolled [facility] Diagnosis Type 2 diabetes mellitus without complication, with long-term current use of insulin ([facility])- Primary Mass of upper inner quadrant of left breast [facility]* Diagnosis Type 2 diabetes mellitus with both eyes affected by mild nonproliferative retinopathy without macular edema, with long-term current use of insulin ([facility])- Primary Presbyopia [facility]* Diagnosis Insect bite of right elbow, initial encounter- Primary [facility]* Diagnosis Trigger ring finger of right hand- Primary Trigger finger (acquired) [facility]* Diagnosis Diabetes mellitus type 2, insulin dependent (HCC)- Primary Type II or unspecified type diabetes mellitus without mention of complication, not stated as uncontrolled Encounter for immunization Need for other specified prophylactic vaccination against single bacterial disease [facility] Diagnosis Mass of upper inner quadrant of left breast documented in this encounter [facility] note* Diagnosis Skin infection- Primary Unspecified local infection of skin and subcutaneous tissue documented in this encounter [facility] note* Diagnosis Diabetes mellitus type 2, insulin dependent (HCC) Type II or unspecified type diabetes mellitus without mention of complication, not stated as uncontrolled documented in this encounter [facility] for referral (narrative)* Outpatient Procedure (Routine) - Closed Specialty Diagnoses / Procedures Referred By Sydney kim Referred To Contact [facility] Diagnoses Screening for colon cancer Procedures COLONOSCOPY DIAGNOSTIC COLONOSCOP W/ OR W/O [facility] SPEC Sandor Cedeño MD [address] [place] [address] [facility] [address] [place] [id number] Referral ID Status Reason Start Date Expiration Date V isits Requested Visits Authorized [id number] Closed Auto-Generate d Referral 05/15/2021 06/09/[address] [facility] for referral (narrative)* Diagnostic Procedure Only (Routine) - Authorized Specialty Diagnoses / Procedures Referred By Sydney kim Referred To Contact [facility] Diagnoses Type 2 diabetes mellitus without complication, with long-term current use of insulin (HCC) Mass of upper inner quadrant of left breast Procedures US BREAST LTD LEFT US BREAST UNI REAL TIME WITH IMAGE LIMITED Saeed Perez MD [address] [place] [address] [facility] [address] [place] [address] Referral ID Status Reason Start Date Expiration Date Visits Requested Visits Authorized [id number] Authorized Auto-Generat ed Referral 02/13/2023 03/14/2024 1 1 * Diagnostic Procedure Only (Routine) - Authorized Specialty Diagnoses / Procedures Referred By Sydney kim Referred To Contact [facility] Diagnoses Type 2 diabetes mellitus without complication, with long-term current use of insulin (HCC) Mass of upper inner quadrant of left breast Procedures [facility] LEFT DIAGNOSTIC MAMMOGRAPHY COMPUTER-AIDED DETCJ UNI Saeed Perez MD [address] [place] [address] [place] [address] Referral ID Status Reason Start Date Expiration Date Visits Requested Visits Authorized [id number] Authorized Auto-Generat ed Referral 02/13/2023 03/14/2024 1 1 * Consult, Test, Treat (Routine) - Authorized Specialty Diagnoses / Procedures Referred By Sydney kim Referred To Contact Ophthalmology Diagnoses Type 2 diabetes mellitus without complication, with long-term current use of insulin (HCC) Procedures CONSULT TO OPHTHALMOLOGY OFFICE/OUTPATIENT NEW HIGH MDM 60-74 MINUTES Saeed Perez MD [address] [place] [address] Referral ID Status Reason Start Date Expiration Date Visits Requested Visits Authorized [id number] Authorized PCP Requested Referral 02/13/2023 02/13/[address] [facility] for referral (narrative)* Diagnostic Procedure Only (Routine) - Closed Specialty Diagnoses / Procedures Referred By Sydney kim Referred To Contact [facility] Diagnoses Mass of upper inner quadrant of left breast Procedures [facility] BILATERAL DIAGNOSTIC MAMMOGRAPHY COMPUTER-AIDED DETCJ BI Saeed Perez MD [address] [place] [address] [place] [address] Referral ID Status Reason Start Date Expiration Date V isits Requested Visits Authorized [id number] Closed Auto-Generate d Referral 03/06/2023 04/04/[address] [facility] for visit Narrative* Outpatient Procedure (Routine) - Closed Specialty Diagnoses / Procedures Referred By Sydney kim Referred To Contact [facility] Diagnoses Screening for colon cancer Procedures COLONOSCOPY DIAGNOSTIC COLONOSCOP W/ OR W/O BRS SPEC Sandor Cedeño MD [address] [place] [address] [facility] [address] [place] [address] Referral ID Status Reason Start Date Expiration Date V isits Requested Visits Authorized [id number] Closed Auto-Generate d Referral 05/15/2021 06/09/2022 1 1 [facility] Diagnostic Procedure Only (Routine) - Closed Specialty Diagnoses / Procedures Referred By Sydney kim Referred To Contact [facility] Diagnoses Mass of upper inner quadrant of left breast Procedures [facility] BILATERAL DIAGNOSTIC MAMMOGRAPHY COMPUTER-AIDED DETCJ BI Saeed Perez MD [address] [place] [address] [facility] [address] [place] [address] Referral ID Status Reason Start Date Expiration Date V isits Requested Visits Authorized [id number] Closed Auto-Generate d Referral 03/06/2023 04/04/2024 1 1 [facility] Summary Purpose Family History No Family History Records FoundNo Family History Records Found Advance Directives No Advanced Directives Records FoundDocuments on File Type Date Recorded Patient Application Counselor Expl anation Advance Directive(s) 10/16/2021 6:46 AM Advance Directive(s) 06/07/2021 4:58 PM Documents on File Type Date Recorded Patient Application Counselor Expl anation Advance Directive(s) 10/16/2021 6:46 AM Advance Directive(s) 06/07/2021 4:58 PM Medications Administered Section Inactive Administered Medications - up to 3 most recent administrations Medication Order MAR Action Action Date Dose Rate Site diphenhydrAMINE 12.5-50 mg injection (BENADRYL) 12.5-50 mg, INTRAVENOUS, DIRECTED, Starting on Fri10/16/21 at 0830, Until Fri10/16/21 at 1229, DOSING DIRECTED BY PHYSICIAN FOR PROCEDURAL SEDATION ONLY, Intraprocedure Given 10/16/2021 8:12 AM EDT 50 mg fentaNYL 50 mcg/mL 25-100 mcg injection (SUBLIMAZE) 25-100 mcg, INTRAVENOUS, DIRECTED, Starting on Fri10/16/21 at 0830, Until Fri10/16/21 at 1229, DOSING DIRECTED BY PHYSICIAN FOR PROCEDURAL SEDATION ONLY, Intraprocedure Given 10/16/2021 8:10 AM EDT 50 mcg Active Administered Medications - up to 3 most recent administrations Medication Order MAR Action Action Date Dose Rate Site PHENYLephrine 2.5 % 1 Drop (AK-DILATE, JOE-SYNEPHRINE) 1 Drop, BOTH EYES, DIRECTED, Starting on Fri02/14/23 at 1030, Until Fri02/14/23 at 2229, Administer for dilation PROTECT FROM LIGHT Given 02/14/2023 10:08 AM EDT 1 Drop proparacaine 0.5 % 1 Drop (ALCAINE) 1 Drop, BOTH EYES, DIRECTED, Starting on Fri02/14/23 at 1030, Until Fri02/14/23 at 2229, Administer for pneumo tonometry, tonopen tonometry, or pachymetry. In the event of a proparacaine shortage, administer tetracaine 0.5% ophthalmic drops 1 drop in the left eye as directed for pneumo tonometry, tonopen tonometry, or pachymetry Given 02/14/2023 10:08 AM EDT 1 Drop tropicamide 1 % 1 Drop (MYDRIACYL) 1 Drop, BOTH EYES, DIRECTED, Starting on Fri02/14/23 at 1030, Until Fri02/14/23 at 2229, Administer for dilation Given 02/14/2023 10:08 AM EDT 1 Drop Inactive Administered Medications - up to 3 most recent administrations Medication Order MAR Action Action Date Dose Rate Site betamethasone acetate-betamethasone sodium phosphate 3 mg injection (CELESTONE) 3 mg, Injection - FOR ORTHO USE ONLY, ONE TIME INJECTION, 1 dose, Starting on Fri02/20/23 at 1630, Until Kath 02/20/23 at 1630 Given 02/20/2023 4:30 PM EDT 3 mg Hand, Right lidocaine (PF) 10 mg/mL (1 %) 0.5 mL injection (XYLOCAINE) 0.5 mL, Injection - FOR ORTHO USE ONLY, ONE TIME INJECTION, 1 dose, Starting on Fri02/20/23 at 1630, Until Kath 02/20/23 at 1630 Given 02/20/2023 4:30 PM EDT 0.5 mL Hand, Right Health Concerns Infection Onset Date Last Indicated Resolved Time COVID-19 Rule-Out 07/09/2022 07/09/2022 Reason for Referral Specialty Diagnoses / Procedures Referred By Sydney kim Referred To Contact Orthopedics Diagnoses Trigger middle finger of left hand Trigger ring finger of left hand Procedures CONSULT TO ORTHOPAEDICS OFFICE/OUTPATIENT [facility] HIGH MDM 60-74 MINUTES Saeed Perez MD [address] [place] [address] Referral ID Status Reason Start Date Expiration Date Visits Requested Visits Authorized [id number] Authorized PCP Requested Referral 10/24/2022 10/24/2023 1 1 Additional Source Comments (unrecognized sect ion and content) No Status Records FoundNo Status Records Found INFORMATION SOURCE (unrecogn ized section and content) DATE CREATED AUTHOR AUTHOR'S ORGANIZ ATION 07/29/2023 [facility] Source Comments (unrecognize d section and content) In the event this informatio n is protected by the Federal Confidentiality of Alcohol and Drug Abuse Patient Records regulations: The Federal rules restrict any use of the information to criminally investigate or prosecute any alcohol or drug abuse patient.[facility] the event this information is protected by the Federal Confidentiality of Alcohol and Drug Abuse Patient Records regulations: The Federal rules restrict any use of the information to criminally investigate or prosecute any alcohol or drug abuse patient.[facility] the event this information is protected by the Federal Confidentiality of Alcohol and Drug Abuse Patient Records regulations: The Federal rules restrict any use of the information to criminally investigate or prosecute any alcohol or drug abuse patient.[facility] the event this information is protected by the Federal Confidentiality of Alcohol and Drug Abuse Patient Records regulations: The Federal rules restrict any use of the information to criminally investigate or prosecute any alcohol or drug abuse patient.[facility] the event this information is protected by the Federal Confidentiality of Alcohol and Drug Abuse Patient Records regulations: The Federal rules restrict any use of the information to criminally investigate or prosecute any alcohol or drug abuse patient.[facility] the event this information is protected by the Federal Confidentiality of Alcohol and Drug Abuse Patient Records regulations: The Federal rules restrict any use of the information to criminally investigate or prosecute any alcohol or drug abuse patient.[facility] the event this information is protected by the Federal Confidentiality of Alcohol and Drug Abuse Patient Records regulations: The Federal rules restrict any use of the information to criminally investigate or prosecute any alcohol or drug abuse patient.[facility] the event this information is protected by the Federal Confidentiality of Alcohol and Drug Abuse Patient Records regulations: The Federal rules restrict any use of the information to criminally investigate or prosecute any alcohol or drug abuse patient.[facility] the event this information is protected by the Federal Confidentiality of Alcohol and Drug Abuse Patient Records regulations: The Federal rules restrict any use of the information to criminally investigate or prosecute any alcohol or drug abuse patient.[facility] the event this information is protected by the Federal Confidentiality of Alcohol and Drug Abuse Patient Records regulations: The Federal rules restrict any use of the information to criminally investigate or prosecute any alcohol or drug abuse patient.[facility] the event this information is protected by the Federal Confidentiality of Alcohol and Drug Abuse Patient Records regulations: The Federal rules restrict any use of the information to criminally investigate or prosecute any alcohol or drug abuse patient.[facility] the event this information is protected by the Federal Confidentiality of Alcohol and Drug Abuse Patient Records regulations: The Federal rules restrict any use of the information to criminally investigate or prosecute any alcohol or drug abuse patient.[facility] the event this information is protected by the Federal Confidentiality of Alcohol and Drug Abuse Patient Records regulations: The Federal rules restrict any use of the information to criminally investigate or prosecute any alcohol or drug abuse patient.[facility] Center[facility] the event this information is protected by the Federal Confidentiality of Alcohol and Drug Abuse Patient Records regulations: The Federal rules restrict any use of the information to criminally investigate or prosecute any alcohol or drug abuse patient.[facility] the event this information is protected by the Federal Confidentiality of Alcohol and Drug Abuse Patient Records regulations: The Federal rules restrict any use of the information to criminally investigate or prosecute any alcohol or drug abuse patient.[facility] Center[facility] the event this information is protected by the Federal Confidentiality of Alcohol and Drug Abuse Patient Records regulations: The Federal rules restrict any use of the information to criminally investigate or prosecute any alcohol or drug abuse patient.[facility] Center[facility] the event this information is protected by the Federal Confidentiality of Alcohol and Drug Abuse Patient Records regulations: The Federal rules restrict any use of the information to criminally investigate or prosecute any alcohol or drug abuse patient.[facility] Center[facility] the event this information is protected by the Federal Confidentiality of Alcohol and Drug Abuse Patient Records regulations: The Federal rules restrict any use of the information to criminally investigate or prosecute any alcohol or drug abuse patient.[facility] Center[facility] the event this information is protected by the Federal Confidentiality of Alcohol and Drug Abuse Patient Records regulations: The Federal rules restrict any use of the information to criminally investigate or prosecute any alcohol or drug abuse patient.[facility] Center[facility] the event this information is protected by the Federal Confidentiality of Alcohol and Drug Abuse Patient Records regulations: The Federal rules restrict any use of the information to criminally investigate or prosecute any alcohol or drug abuse patient.[facility] Center[facility] the event this information is protected by the Federal Confidentiality of Alcohol and Drug Abuse Patient Records regulations: The Federal rules restrict any use of the information to criminally investigate or prosecute any alcohol or drug abuse patient.[facility] Center[facility] the event this information is protected by the Federal Confidentiality of Alcohol and Drug Abuse Patient Records regulations: The Federal rules restrict any use of the information to criminally investigate or prosecute any alcohol or drug abuse patient.[facility] Center[facility] the event this information is protected by the Federal Confidentiality of Alcohol and Drug Abuse Patient Records regulations: The Federal rules restrict any use of the information to criminally investigate or prosecute any alcohol or drug abuse patient.[facility] Center[facility] the event this information is protected by the Federal Confidentiality of Alcohol and Drug Abuse Patient Records regulations: The Federal rules restrict any use of the information to criminally investigate or prosecute any alcohol or drug abuse patient.[facility] Center[facility] the event this information is protected by the Federal Confidentiality of Alcohol and Drug Abuse Patient Records regulations: The Federal rules restrict any use of the information to criminally investigate or prosecute any alcohol or drug abuse patient.[facility] CenterIn the event this information is protected by the Federal Confidentiality of Alcohol and Drug Abuse Patient Records regulations: The Federal rules restrict any use of the information to criminally investigate or prosecute any alcohol or drug abuse patient.[facility] CenterIn the event this information is protected by the Federal Confidentiality of Alcohol and Drug Abuse Patient Records regulations: The Federal rules restrict any use of the information to criminally investigate or prosecute any alcohol or drug abuse patient.[facility] CenterIn the event this information is protected by the Federal Confidentiality of Alcohol and Drug Abuse Patient Records regulations: The Federal rules restrict any use of the information to criminally investigate or prosecute any alcohol or drug abuse patient.[facility] CenterIn the event this information is protected by the Federal Confidentiality of Alcohol and Drug Abuse Patient Records regulations: The Federal rules restrict any use of the information to criminally investigate or prosecute any alcohol or drug abuse patient.[facility] CenterIn the event this information is protected by the Federal Confidentiality of Alcohol and Drug Abuse Patient Records regulations: The Federal rules restrict any use of the information to criminally investigate or prosecute any alcohol or drug abuse patient.[facility] CenterIn the event this information is protected by the Federal Confidentiality of Alcohol and Drug Abuse Patient Records regulations: The Federal rules restrict any use of the information to criminally investigate or prosecute any alcohol or drug abuse patient.[facility] CenterIn the event this information is protected by the Federal Confidentiality of Alcohol and Drug Abuse Patient Records regulations: The Federal rules restrict any use of the information to criminally investigate or prosecute any alcohol or drug abuse patient.[facility] CenterIn the event this information is protected by the Federal Confidentiality of Alcohol and Drug Abuse Patient Records regulations: The Federal rules restrict any use of the information to criminally investigate or prosecute any alcohol or drug abuse patient.[facility] Care Teams (unrecognized sec tion and content) Lactation Nurse Relationship Specialty Start Date End Date Saeed Perez MD [address] [place] [address] PCP - General Family Practice 10/01/18 Lactation Nurse Relationship Specialty Start Date End Date Saeed Perez MD [address] [place] [address] PCP - General Family Practice 10/01/18 Lactation Nurse Relationship Specialty Start Date End Date Saeed Perez MD [address] [place] [address] PCP - General Family Practice 10/01/18 Lactation Nurse Relationship Specialty Start Date End Date Saeed Perez MD [address] [place] [address] PCP - General Family Practice 10/01/18 Lactation Nurse Relationship Specialty Start Date End Date Saeed Perez MD [address] [place] [address] PCP - General Family Practice 10/01/18 Lactation Nurse Relationship Specialty Start Date End Date Saeed Perez MD [address] [place] [address] PCP - General Family Practice 10/01/18 Lactation Nurse Relationship Specialty Start Date End Date Saeed Perez MD [address] [place] [address] PCP - General Family Medicine 10/01/18 Lactation Nurse Relationship Specialty Start Date End Date Saeed Perez MD [address] [place] [address] PCP - General Family Medicine 10/01/18 Lactation Nurse Relationship Specialty Start Date End Date Saeed Perez MD [address] [place] [address] PCP - General Family Medicine 10/01/18 Lactation Nurse Relationship Specialty Start Date End Date Saeed Perez MD [address] [place] [address] PCP - General Family Medicine 10/01/18 Lactation Nurse Relationship Specialty Start Date End Date Saeed Perez MD [address] [place] [address] PCP - General Family Medicine 10/01/18 Lactation Nurse Relationship Specialty Start Date End Date Saeed Perez MD [address] [place] [address] PCP - General Family Medicine 10/01/18 Lactation Nurse Relationship Specialty Start Date End Date Saeed Perez MD [address] [place] [address] PCP - General Family Medicine 10/01/18 Lactation Nurse Relationship Specialty Start Date End Date Saeed Perez MD [address] [place] [address] PCP - General Family Medicine 10/01/18 Lactation Nurse Relationship Specialty Start Date End Date Saeed Perez MD [address] [place] [address] PCP - General Family Medicine 10/01/18 Lactation Nurse Relationship Specialty Start Date End Date Saeed Perez MD [address] [place] [address] PCP - General Family Medicine 10/01/18 Lactation Nurse Relationship Specialty Start Date End Date Saeed Perez MD [address] [place] [address] PCP - General Family Medicine 10/01/18 Lactation Nurse Relationship Specialty Start Date End Date Saeed Perez MD [address] [place] [address] PCP - General Family Medicine 10/01/18 Lactation Nurse Relationship Specialty Start Date End Date Saeed Perez MD [address] [place] [address] PCP - General Family Medicine 10/01/18 Lactation Nurse Relationship Specialty Start Date End Date Saeed Perez MD [address] [place] [address] PCP - General Family Medicine 10/01/18 Lactation Nurse Relationship Specialty Start Date End Date Saeed Perez MD [address] [place] [address] PCP - General Family Medicine 10/01/18 Lactation Nurse Relationship Specialty Start Date End Date Saeed Perez MD [address] [place] [address] PCP - General Family Medicine 10/01/18 Lactation Nurse Relationship Specialty Start Date End Date Saeed Perez MD [address] [place] [address] PCP - General Family Medicine 10/01/18 Lactation Nurse Relationship Specialty Start Date End Date Saeed Perez MD [address] [place] [address] PCP - General Family Medicine 10/01/18 Lactation Nurse Relationship Specialty Start Date End Date Saeed Perez MD [address] [place], [place] [id number] PCP - General Family Medicine 10/01/18 Reason for Visit (unrecogniz ed section and content) Reason Onset Date Comments Refill Request 11/26/2021 Reason Onset Date Comments Refill Request 12/12/2021 Reason Onset Date Comments Refill Request 12/25/2021 Reason Comments F/U 3 Month Reason Onset Date Comments Refill Request 02/09/2022 Reason Comments Results Reason Onset Date Comments Refill Request 05/10/2022 Reason Onset Date Comments Refill Request 06/22/2022 Reason Comments Chest Congestion cough x 4-5 days Reason Comments Medication Problem Reason Comments Follow Up DM follow up and pat ient wanting to get vaccinations he's due for. Reason Comments New Trigger finger Specialty Diagnoses / Procedures Referred By Sydney kim Referred To Contact Orthopedics Diagnoses Trigger middle finger of left hand Trigger ring finger of left hand Procedures CONSULT TO ORTHOPAEDICS OFFICE/OUTPATIENT NEW HIGH MDM 60-74 MINUTES Saeed Perez MD [address] [place] [address] Referral ID Status Reason Start Date Expiration Date V isits Requested Visits Authorized [id number] Closed PCP Requested Referral 10/24/2022 10/24/2023 1 1 Reason Onset Date Comments Refill Request 01/07/2023 Reason Comments Established Patient Post Op 1 week 4 days post op middle and ring tr igger finger release Reason Onset Date Comments Refill Request 02/03/2023 Reason Comments Follow Up DM Reason Comments Diabetic Eye Exam Type 2 IDDM Specialty Diagnoses / Procedures Referred By Sydney kim Referred To Contact Ophthalmology Diagnoses Type 2 diabetes mellitus without complication, with long-term current use of insulin (HCC) Procedures CONSULT TO OPHTHALMOLOGY OFFICE/OUTPATIENT NEW HIGH MDM 60-74 MINUTES Saeed Perez MD [address] [place] [address] Referral ID Status Reason Start Date Expiration Date V isits Requested Visits Authorized [id number] Closed PCP Requested Referral 02/13/2023 02/13/2024 1 1 Reason Comments Rash right elbow x last n ight, itchy Reason Comments Established Patient Post Op Reason Onset Date Comments Refill Request 04/10/2023 Reason Comments F/U 6 Month Reason Comments open sore left leg X 2 days Reason Onset Date Comments Refill Request 07/02/2023 FOR RECORDS PERTAINING TO PATIENTS WHO ARE OR HAVE BEEN ENROLLED IN A CHEMICAL DEPENDENCY/SUBSTANCEABUSE PROGRAM, SOME INFORMATION MAY BE OMITTED. This clinical summary was aggregated from multiple sources. Caution should be exercised in using it in the provision of clinical care. This summary normalizes information from multiple sources, and as a consequence, information in this document may materially change the coding, format and clinical context of patient data. In addition, data may be omitted in some cases. CLINICAL DECISIONS SHOULD BE BASED ON THE PRIMARY CLINICAL RECORDS. [facility]. provides no warranty or guarantee of the accuracy or completeness of information in this document.
[2023-10-04 03:07] LABS: HIV-1 RNA by PCR, Quant. 50 copies/mL (.); LOG10 HIV-1 RNA 1.699 (.)
== END | disposition home or self-care (01) ==
PROVIDERS: PCP Family Medicine; Referring Provider Internal Medicine Infectious Disease; Visit Provider Internal Medicine Infectious Disease
DX: B20 Human immunodeficiency virus [HIV] disease (principal)
CPT/HCPCS: 36415; 80048; 85027; 87536

== ENCOUNTER → 2024-04-22 | Outpatient (CLI) | payer BC, SELFPAY ==
[2024-04-22 15:14] LABS: Hematocrit 44.8 % (40-54); Hemoglobin 14.6 g/dL (13.0-16.5); Mean Corp Hgb Conc 32.6 g/dL (32-36); Mean Corpuscular Hgb 30.3 pg (27.0-32.0); Mean Corpuscular Volume 92.9 fL (80-94); Mean Platelet Vol. 9.4 fl (6.2-12.0); Platelet Count 286 K/mm3 (150-450); RBC Distribution Width CV 12.6 % (11.6-14.6); RBC Distribution Width SD 43.3 fl (35.1-43.9); Red Blood Count 4.82 M/mm3 (4.6-6.2); White Blood Count 7.5 K/mm3 (4.4-11.0)
[2024-04-22 15:37] LABS: Anion Gap 5 (5-15); BUN 15 mg/dL (7-18); BUN/Creat Ratio 18.5 RATIO (10-20); Chloride 102 mmol/L (98-107); Creatinine, Serum 0.81 mg/dL (0.70-1.30); EST Glomerular Filtration Rate 107 mL/min (>60); Est Glom Filt Rate - Afr Amer 129 mL/min (>60); Glucose 130 mg/dL (74-106); Potassium 4.2 mmol/L (3.5-5.1); Sodium Level 135 mmol/L (136-145)
[2024-04-22 15:55] LABS: Syphilis Antibodies Non-reactive
[2024-04-27 07:08] LABS: HIV-1 RNA by PCR, Quant. < 20 copies/mL (.)
== END | disposition home or self-care (01) ==
LOC: LAB 14:07
PROVIDERS: PCP Family Medicine; Referring Provider Internal Medicine Infectious Disease; Visit Provider Internal Medicine Infectious Disease
DX: Z21 Asymptomatic human immunodeficiency virus [HIV] infection status (principal)
CPT/HCPCS: 36415; 80048; 85027; 86780; 87536

== ENCOUNTER → 2024-11-01 | Outpatient (CLI) | payer BC, SELFPAY ==
[2024-11-01 16:18] LABS: Anion Gap 13 (5-15); BUN 12 mg/dL (4-19); Calcium,Total 9.2 mg/dL (7.6-11.0); Carbon Dioxide 22.8 mmol/L (21.0-32.0); Chloride 102 mmol/L (98-108); Creatinine, Serum 0.84 mg/dL (0.70-1.20); EST Glomerular Filtration Rate 106 (>60); Glucose 101 mg/dL (70-99); Potassium 4.2 mmol/L (3.3-5.1); Sodium Level 138 mmol/L (133-145)
[2024-11-03 17:08] LABS: Absolute CD4 Helper 1139 /uL (359-1519); Basophils (Absolute) 0.1 x10E3/uL (0.0-0.2); Eosinophils 3 % (Not Estab.); Eosinophils (Absolute) 0.2 x10E3/uL (0.0-0.4); Hematocrit 46.8 % (37.5-51.0); Hemoglobin 15.4 g/dL (13.0-17.7); Immature Granulocytes 0 % (Not Estab.); Immature Granulocytes Absolute 0 x10E3/uL (0.0-0.1); Lymphs 34 % (Not Estab.); Lymphs (Absolute) 2.7 x10E3/uL (0.7-3.1); MCH 30.8 pg (26.6-33.0); MCHC 32.9 g/dL (31.5-35.7); MCV 94 fL (79-97); Monocytes 9 % (Not Estab.); Monocytes (Absolute) 0.7 x10E3/uL (0.1-0.9); Neutrophils 53 % (Not Estab.); Neutrophils (Absolute) 4.3 x10E3/uL (1.4-7.0); Percent % CD4 Pos. Lymph. 42.2 % (30.8-58.5); Platelets 362 x10E3/uL (150-450); RDW 12.4 % (11.6-15.4)
[2024-11-04 08:09] LABS: HIV-1 RNA by PCR, Quant. < 20 copies/mL (.)
== END | disposition home or self-care (01) ==
LOC: LAB 15:11
PROVIDERS: PCP Family Medicine; Referring Provider Internal Medicine Infectious Disease; Visit Provider Internal Medicine Infectious Disease
DX: Z21 Asymptomatic human immunodeficiency virus [HIV] infection status (principal)
CPT/HCPCS: 36415; 80048; 85027; 86361; 87536